=== PATIENT | female | born 1960 | race Caucasian/White ===

== ENCOUNTER 2023-09-02 15:16 | Emergency (ER) | payer MEDICARE, SELFPAY ==
[2023-09-02 15:27] VITALS: BP 125/81; PULSE 95; TEMP 36.8; O2SAT 98; BMI 25.0
--- NOTE | 2023-09-02 15:33 | CT_ITS ---
[address] [address] Patient Name: KILEY ALANIZ MRN: [id number] date: 1960 Sex: F Assigned Patient Location: ER Current Patient Location: ED.MAIN Accession/Order Number: [id number] Exam Date: 09/02/2023 16:18 Report Date: 09/02/2023 17:51 At the request of: MAHESH GARBER Procedure: CT abdomen pelvis w con EXAM: CT abdomen pelvis w con HISTORY: LLQ pain COMPARISON: None. TECHNIQUE: Axial CT imaging was performed through the abdomen and pelvis with intravenous contrast. Multiplanar reformats were performed. Dose reduction techniques were achieved by using automated exposure control and/or adjustment of mA and/or kV according to patient size and/or use of iterative reconstruction technique. FINDINGS: Lung bases: Lung bases are clear. No pleural effusion. GI upper: Unremarkable. Liver: Normal size and contour. Right hepatic cysts measuring up to 2 cm. Gallbladder: No significant abnormality. No cholelithiasis. Biliary system: No intra or extrahepatic biliary ductal dilatation. Spleen: Normal size. Pancreas: Unremarkable. Adrenal glands: Normal adrenal glands. Kidneys/ureters: Normal contours. No hydronephrosis. Multiple punctate left renal stones. Vessels: No aneurysm. Lymph Nodes: No lymphadenopathy. Small bowel: No wall thickening or dilatation. Colon: No dilatation. Sigmoid diverticula. There is short segment mid sigmoid wall thickening with surrounding fat stranding, representing acute sigmoid diverticulitis. Appendix: Appendix is identified with normal appearance. Peritoneal cavity: No free fluid or pneumoperitoneum. Lower : Unremarkable. Bones: No acute bony abnormality. Soft tissues: No acute finding. Additional findings: None. CT/CT abdomen pelvis w con IMPRESSION: CT evidence of acute sigmoid diverticulitis. Multiple punctate left renal stones. Electronically authenticated by: DAVION ACEVEDO Date: 09/02/2023 17:51
[2023-09-02] MEDS: KETOROLAC TROMETHAMINE 30 MG/ML VIAL IVP (15:46)
[2023-09-02] MEDS: ONDANSETRON PF 4 MG/2 ML VIAL IV (15:46)
[2023-09-02] MEDS: FENTANYL CITRATE/PF 100 MCG/2 ML VIAL 50 MCG IV (15:47)
[2023-09-02 15:59] LABS: Basophils Percent Auto 0.2 % (0.2-2.0); Eosinophils Absolute Auto 0.1 10^3/uL (0.0-0.7); Eosinophils Percent Auto 1.3 % (0.9-7.0); Hematocrit 42.1 % (36.0-48.0); Hemoglobin 13.8 g/dL (12.0-16.0); Immature Granulocytes Abs Auto 0.02 10^3/uL (0.00-0.03); Immature Granulocytes Pct Auto 0.2 % (0.0-0.5); Lymphocytes Absolute Auto 0.9 10^3/uL (1.2-3.8); Lymphocytes Percent Auto 10.4 % (20.5-60.0); Mean Corpuscular HGB Conc 32.8 g/dL (29.9-35.2); Mean Corpuscular Hemoglobin 31.9 pg (26.7-34.0); Mean Corpuscular Volume 97.5 fL (81.0-99.0); Mean Platelet Volume 9.2 fL (9.5-13.5); Monocytes Absolute Auto 1.1 10^3/uL (0.3-0.8); Monocytes Percent Auto 11.6 % (1.7-12.0); Neutrophils Absolute Auto 6.9 10^3/uL (1.4-6.5); Neutrophils Percent Auto 76.3 % (43.0-75.0); Platelet Count 365 10^3/uL (150-450); Red Blood Count 4.32 10^6/uL (4.20-5.40); Red Cell Distribution Width 12.6 % (11.0-15.0); White Blood Count 9.1 10^3/uL (4.0-11.0)
[2023-09-02 16:00] LABS: Bilirubin Urine NEGATIVE (NEGATIVE); Blood Urine NEGATIVE (NEGATIVE); Clarity Urine CLEAR (CLEAR); Color Urine YELLOW (YELLOW); Glucose Urine UA NEGATIVE (NEGATIVE); Ketones Urine NEGATIVE (NEGATIVE); Leukocyte Esterase Urine NEGATIVE (NEGATIVE); Nitrite Urine NEGATIVE (NEGATIVE); Protein Urine NEGATIVE (NEG/TRACE); Specific Gravity Urine >=1.030 (1.005-1.025)
[2023-09-02 16:09] LABS: Anion Gap 12.4; BUN Creatinine Ratio 20.7; Calcium 9.5 mg/dL (8.5-10.1); Carbon Dioxide 27.4 mmol/L (21.0-32.0); Chloride 105 mmol/L (98-107); Estimated GFR (African America >60 (>=60); Estimated GFR (Non-African Ame >60 (>=60); Glucose 119 mg/dL (74-106); Potassium 3.8 mmol/L (3.5-5.1); Sodium 141 mmol/L (136-145)
[2023-09-02 16:17] LABS: Urine Microscopic Indicated NO
--- NOTE | 2023-09-02 16:57 | ED.ABDPAIN1 ---
HPI - Abdominal Pain General Chief Complaint: Abdominal Pain Stated Complaint: LT SIDE LOWER STOMACH PAIN Time Seen by Provider: 09/02/23 15:30 Source: patient Mode of arrival: walk-in Limitations: no limitations History of Present Illness HPI narrative: 63-year-old female to the emergency department chief complaint of left lower quadrant pain for the last 2 to 3 days. She reports it is sharp in nature. It does not radiate. No nausea or vomiting. No change in bowel habits. She does have a history of diverticulitis. No urinary symptoms. No fever, sweats, chills. She is otherwise in her baseline health. Related Data Previous Rx's ?Medication ?Instructions ?Recorded ciprofloxacin HCl 500 mg tablet 500 mg PO BID 7 days #14 tabs 09/02/23 metronidazole 500 mg tablet 500 mg PO Q8H 7 days #21 tabs 09/02/23 ondansetron 4 mg disintegrating 4 mg PO Q8H PRN nausea and 09/02/23 tablet vomiting 4 days #16 tabs oxycodone-acetaminophen 5 mg-325 1 tab PO Q6H PRN pain 3 days #12 09/02/23 mg tablet (Percocet) tabs Allergies Allergy/AdvReac Type Severity Reaction Status Date / Time morphine Allergy Severe rash Verified 09/02/23 15:30 Review of Systems ROS Status of ROS 10 or more systems reviewed and unremarkable except as noted in history and below Exam Narrative Exam Narrative: VITALS: I have reviewed the triage vital signs. GENERAL: Well developed, well appearing adult in no acute distress. NEURO: Alert and oriented. Moves all extremities. Face is symmetric and expressive. EYES: PERRL. No scleral icterus or conjunctival injection. No discharge. HENT: Normocephalic, atraumatic. Hearing is grossly intact. Nares grossly patent and without discharge. Mucous membranes moist. NECK: No JVD. Patient moves neck without restriction. CARDIO: Rhythm regular. Normal rate. No murmur, rub, or gallop. Pulses equal bilaterally in the upper and lower extremity. No lower extremity edema. PULM: Lungs clear to auscultation in all ellis. No wheezes, rales, or rhonchi. No conversational dyspnea. No splinting, stridor, or accessory muscle use. GI/: Abdomen is soft. Mild left lower quadrant tenderness. Normoactive bowel sounds. EXTREMITIES: Symmetric muscle bulk. No joint swelling. No clubbing, cyanosis, or deformity. SKIN: Warm and dry. Normal turgor. No rash or lesions appreciated. PSYCH: Mood, affect, and interaction is appropriate to the setting. Constitutional Vital Signs, click to edit/add: Last Vital Signs Temp 98.2 F 09/02/23 15:27 Pulse 85 09/02/23 17:59 Resp 18 09/02/23 17:59 BP 115/72 09/02/23 17:59 Pulse Ox 98 09/02/23 17:59 O2 Del Method Room Air 09/02/23 17:59 Course Vital Signs Vital signs: Vital Signs Temperature 98.2 F 09/02/23 15:27 Pulse Rate 95 H 09/02/23 15:27 Respiratory Rate 18 09/02/23 15:27 Blood Pressure 125/81 09/02/23 15:27 Pulse Oximetry 98 09/02/23 15:27 Oxygen Delivery Method Room Air 09/02/23 15:27 Temperature 98.2 F 09/02/23 15:27 Pulse Rate 85 09/02/23 17:59 Respiratory Rate 18 09/02/23 17:59 Blood Pressure 115/72 09/02/23 17:59 Pulse Oximetry 98 09/02/23 17:59 Oxygen Delivery Method Room Air 09/02/23 17:59 MDM - Abdominal Pain MDM Narrative Medical decision making narrative: 63-year-old female to the emergency department chief complaint of left lower quadrant abdominal pain. Vital stable, the patient is afebrile. Basic labs, urinalysis, CT scan ordered. Pain medications are ordered. Patient agrees with this plan. Lab work reviewed and noted. No significant abnormalities. CT scan showed uncomplicated sigmoid diverticulitis. Ciprofloxacin and Flagyl. Zofran and Percocet for her symptom control at home. She follows with gastroenterology, recommended to repeat colonoscopy for disease burden evaluation and possible surgical referral. Patient agrees with these plans. Return precautions were discussed. All questions were answered. The patient was discharged home. Medical Records Attestation: I reviewed the patient's medical records. Lab Data Attestation: I reviewed the patient's lab results. Labs: Lab Results 09/02/23 09/02/23 Range/Units 15:30 15:40 WBC 9.1 (4.0-11.0) 10^3/uL RBC 4.32 (4.20-5.40) 10^6/uL Hgb 13.8 (12.0-16.0) g/dL Hct 42.1 (36.0-48.0) % MCV 97.5 (81.0-99.0) fL MCH 31.9 (26.7-34.0) pg MCHC 32.8 (29.9-35.2) g/dL RDW 12.6 (11.0-15.0) % Plt Count 365 (150-450) 10^3/uL MPV 9.2 L (9.5-13.5) fL Neut % (Auto) 76.3 H (43.0-75.0) % Lymph % (Auto) 10.4 L (20.5-60.0) % [place] % (Auto) 11.6 (1.7-12.0) % Eos % (Auto) 1.3 (0.9-7.0) % Baso % (Auto) 0.2 (0.2-2.0) % Neut # (Auto) 6.9 H (1.4-6.5) 10^3/uL Lymph # (Auto) 0.9 L (1.2-3.8) 10^3/uL [place] # (Auto) 1.1 H (0.3-0.8) 10^3/uL Eos # (Auto) 0.1 (0.0-0.7) 10^3/uL Baso # (Auto) 0.0 (0.0-0.1) 10^3/uL Abs Immat Gran (auto) 0.02 (0.00-0.03) 10^3/uL Imm/Tot Granulo (auto) 0.2 (0.0-0.5) % Sodium 141 (136-145) mmol/L Potassium 3.8 (3.5-5.1) mmol/L Chloride 105 (98-107) mmol/L Carbon Dioxide 27.4 (21.0-32.0) mmol/L Anion Gap 12.4 BUN 19.0 H (7.0-18.0) mg/dL Creatinine 0.92 (0.55-1.02) mg/dL Est GFR ( Amer) >60 (>=60) Est GFR (Non-Af Amer) >60 (>=60) BUN/Creatinine Ratio 20.7 Glucose 119 H (74-106) mg/dL Calcium 9.5 (8.5-10.1) mg/dL Urine Color Yellow (YELLOW) Urine Clarity Clear (CLEAR) Urine pH 6.0 (5.0-9.0) Ur Specific [place] >=1.030 A (1.005-1.025) Urine Protein Negative (NEG/TRACE) mg/dL Urine Glucose (UA) Negative (NEGATIVE) mg/dL Urine Ketones Negative (NEGATIVE) mg/dL Urine Occult Blood Negative (NEGATIVE) Urine Nitrite Negative (NEGATIVE) Urine Bilirubin Negative (NEGATIVE) Urine Urobilinogen 1.0 (0.2-1.0) EU/dL Ur Leukocyte Esterase Negative (NEGATIVE) Imaging Data CT scan - abdomen: Attestation: I have reviewed the pertinent imaging results. Radiologist's impression: ITS Impressions Abdomen/Pelvis CT 09/02/23 15:33 IMPRESSION: CT evidence of acute sigmoid diverticulitis. Multiple punctate left renal stones. Electronically authenticated by: DAVION ACEVEDO Date: 09/02/2023 17:51 Discharge Plan Discharge Stand Alone Forms: Portal Instructions Chief Complaint: Abdominal Pain Clinical Impression: Diverticulitis Patient Disposition: Home, Self-Care Time of Disposition Decision: 18:10 Condition: Good Mode of Transportation: Private Vehicle Prescriptions / Home Meds: New metronidazole 500 mg tablet 500 mg PO Q8H 7 Days Qty: 21 0RF ciprofloxacin HCl 500 mg tablet 500 mg PO BID 7 Days Qty: 14 0RF oxycodone-acetaminophen [Percocet] 5-325 mg tablet 1 tab PO Q6H PRN (Reason: pain) 3 Days Qty: 12 0RF ondansetron 4 mg tablet,disintegrating 4 mg PO Q8H PRN (Reason: nausea and vomiting) 4 Days Qty: 16 0RF Print Language: Spanish Instructions: Diverticulitis (ED) Additional Instructions: Call the office of your primary care doctor to arrange for follow-up within the above-stated timeframe. Follow-up with your primary care doctor about this ED visit. You should review your labs, imaging, and diagnoses from this ED visit with your primary care physician. There may be non-emergent findings that need further evaluation. If you were prescribed medications you should discuss possible side-effects and drug interactions with your pharmacist. Call 911 or go to the nearest Emergency Department if you develop any new or worsening symptoms. Seek immediate medical attention if you develop: worsening abdominal pain, new or worsening nausea, new or worsening vomiting, new or worsening diarrhea, chest pain, shortness of breath, pain with urination, problems urinating, fever, chills, weakness, or any new or worsening symptoms. You will need to follow-up with your GI doctor for repeat colonoscopy. Referrals: Physician,Non-Staff, MD [Primary Care Provider] - 1 week (Follow-up with your doctor in 1 week. Return the ED if your symptoms are worsening)
[2023-09-02 17:59] VITALS: BP 115/72; PULSE 85; O2SAT 98
[2023-09-02] MEDS: HYDROMORPHONE HCL 0.5 MG/0.5 ML SYRINGE IV (18:00)
== END 2023-09-02 18:27 | disposition home or self-care (01) ==
PROVIDERS: Emergency Provider Student in an Organized Health Care Education/Training Program
DX: K57.32 Diverticulitis of large intestine without perforation or abscess without bleeding (principal)
CPT/HCPCS: 36415; 74177; 80048; 81003; 85025; 96374; 96375; 99285; J1170; J1885; J2405; J3010; Q9967

== ENCOUNTER 2023-09-12 14:45 | Inpatient (IN) | payer MEDICARE, SELFPAY ==
[2023-09-12 14:52] VITALS: BP 145/90; PULSE 90; TEMP 36.7; O2SAT 97; BMI 24.9
--- OUTSIDE RECORDS SUMMARY | 2023-09-12 15:04 | XMS_ITS | CCD ---
Author Organization [facility] Care Team Providers Care Claims Vice President Name Role Phone ELINA DEL ANGEL Unavailable Unavailable ELINA DEL ANGEL Unavailable Unavailable KABOUR, AMEER Unavailable Unavailable NUCKLOS, RONALD Primary Care Unavailable RADHA TRUJILLO Attending Unavailable RADHA TRUJILLO Admitting Unavailable SELF, REFERRED Referring Unavailable NUCKLOS, RONALD Primary Care Unavailable NUCKLOS, RONALD Referring Unavailable ELGAFY, CALOS K Attending Unavailable ELGAFY, CALOS K Admitting Unavailable NUCKLOS, RONALD Referring Unavailable EBRAHEIM, JOANN Admitting Unavailable NUCKLOS, RONALD Primary Care Unavailable EBRAHEIM, JOANN Attending Unavailable NUCKLOS, RONALD Referring Unavailable ND Procedure Practitioner Unavailab le EBRAHEIM, JOANN Admitting Unavailable EBRAHEIM, JOANN Surgeon Unavailable NUCKLOS, RONALD Primary Care Unavailable EBRAHEIM, JOANN Attending Unavailable Judith Pinzon Unavailable PAY ., DR HALL Admitting Unavailable PAY ., DR HALL Attending Unavailable CHEKO, DR CHRISSY Quintana Consulting Unavailable REQUEST, DR MOY LISTED Primary Care Unavaila ble PAY ., DR HALL Consulting Unavailable DELLA ., LISSA Consulting Unavailable RASTEGAR, DAVION Consulting Unavailable ULISES ZULUAGA, MARGARETH~[id number] ULISES Attending Unavailable NUCKLOS, RONALD N Attending Unavailable NUCKLOS, RONALD N Attending Unavailable NUCKLOS, RONALD N Referring Unavailable NUCKLOS, RONALD N Referring Unavailable NUCKLOS, RONALD N Referring Unavailable ELGAFY, CALOS Referring Unavailable ELGAFY, CALOS Attending Unavailable HILDA, ALEXSANDRA Attending Unavailable Allergies Allergy Classification Reported Allergen(s) Allergy Type Date of Onset Reaction(s) Facility (1 source) Acetaminophen / HYDROcodone Drug Allergy 3 [facility] Repository (2 sources) Latex; Translations: [LATEX] Propensity to adverse reactions (disorder) 7 [facility] Repository (3 sources) Morphine; Translations: [MORPHINE] Drug Allergy 9 [facility] Repository (1 source) Acetaminophen / HYDROcodone; Translations: [HYDROCODONE-ACET AMINOPHEN] Drug Allergy 4 [facility] Repository Problems Active Problems Problem Classification Problem Date Documented Da te Episodic/Chronic Anxiety disorders (2 sources) Anxiety disorder, unspecified; Translations: [Anxiety disorder, unspecified] Onset: 04-14-2023 Chronic Aortic; peripheral; and visceral artery aneurysms (2 sources) Aneurysm of other specified arteries; Translations: [Aneurysm of other specified arteries] Onset: 03-09-2022 Chronic Conditions associated with dizziness or vertigo (4 sources) Dizziness and giddiness; Translations: [DIZZINESS AND GIDDINESS] Onset: 07-29-2022 Episodic Disorders of lipid metabolism (2 sources) Hyperlipidemia, unspecified; Translations: [Hyperlipidemia, unspecified] Onset: 02-07-2022 Chronic E Codes: Fall (1 source) Fall on same level from slipping, tripping and stumbling with subsequent striking against unspecified object, initial encounter; Translations: [FALL SAME LVL SLIP STRK UNS OBJ INT] Onset: 08-02-2022 Episodic Other injuries and conditions due to external causes (1 source) Unspecified injury of head, initial encounter; Translations: [UNSPECIFIED INJURY HEAD INITIAL ENC] Onset: 08-02-2022 Episodic Other nervous system disorders (3 sources) Other chronic pain; Translations: [OTHER CHRONIC PAIN] Onset: 08-02-2022 Chronic Poisoning by other medications and drugs (1 source) Poisoning by unspecified drugs, medicaments and biological substances, accidental (unintentional), initial encounter; Translations: [Poisoning by unspecified drugs, medicaments and biological substances, accidental (unintentional), initial encounter] Onset: 08-05-2017 Sprains and strains (1 source) Unspecified sprain of left thumb, initial encounter; Translations: [UNSPECIFIED SPRAIN LT THUMB INITIAL] Onset: 08-02-2022 Episodic Unclassified (1 source) Cough, unspecified; Translations: [Cough, unspecified] Onset: 04-28-2023 Past or Other Problems Problem Classification Problem Date Documented Da te Episodic/Chronic Diabetes mellitus without complication (2 sources) Prediabetes; Translations: [Prediabetes] Onset: 04-28-2023 Episodic Malaise and fatigue (2 sources) Other fatigue; Translations: [Other fatigue] Onset: 04-14-2023 Episodic Nonmalignant breast conditions (2 sources) Mastodynia; Translations: [Mastodynia] Onset: 04-28-2023 Episodic Nonspecific chest pain (3 sources) Chest pain, unspecified; Translations: [Chest pain, unspecified] Onset: 08-06-2017 Episodic Other connective tissue disease (2 sources) Pain in left finger(s); Translations: [Pain in left finger(s)] Onset: 09-02-2022 Episodic Other gastrointestinal disorders (2 sources) Other intra-abdominal and pelvic swelling, mass and lump; Translations: [Other intra-abdominal and pelvic swelling, mass and lump] Onset: 04-14-2023 Episodic Other lower respiratory disease (2 sources) Dyspnea, unspecified; Translations: [Dyspnea, unspecified] Onset: 04-14-2023 Episodic Other lower respiratory disease (2 sources) Shortness of breath; Translations: [Shortness of breath] Onset: 04-14-2023 Episodic Other nervous system disorders (2 sources) Tremor, unspecified; Translations: [Tremor, unspecified] Onset: 04-14-2023 Episodic Other non-traumatic joint disorders (2 sources) Pain in left shoulder; Translations: [Pain in left shoulder] Onset: 04-14-2023 Episodic Other screening for suspected conditions (not mental disorders or infectious disease) (2 sources) Other abnormal and inconclusive findings on diagnostic imaging of breast; Translations: [Other abnormal and inconclusive findings on diagnostic imaging of breast] Onset: 04-14-2023 Episodic Spondylosis; intervertebral disc disorders; other back problems (5 sources) Cervicalgia; Translations: [Radiculopathy, cervical region] Onset: 02-07-2022 Episodic Unclassified (1 source) Cough, unspecified; Translations: [Cough, unspecified] Onset: 04-28-2023 Results Test Name Value Interpretation Reference Range Facility 36 08-23-2023 36 Patient called jean-claude leigh she needs a refill for ropinirole. She's been out for two day. This needs to go to the [facility]. Normal [facility] CT ABDOMEN PELVIS W IV CONTR Justus 05-31-2023 CT ABDOMEN PELVIS W IV CONTRAST CT ABDOMEN AND PELVIS HISTORY: Breast pain, abdominal pain. COMPARISON STUDY: CT abdomen pelvis 03/02/2022. TECHNIQUE: CT scan of the abdomen and pelvis performed with IV no oral contrast. 100 mL of Omnipaque 350 was injected intravenously without complication. Coronal and sagittal reformats generated and reviewed. FINDINGS: LOWER THORAX: Unchanged partially calcified 3 mm posterior right lower lobe lung nodule. HEPATOBILIARY: Medial right hepatic lobe cyst similar from before with smaller vague lesions to small to characterize. No biliary ductal dilatation. Gallbladder is normal. SPLEEN: No splenomegaly. PANCREAS: No focal masses or ductal dilatation. ADRENALS: No adrenal nodules. KIDNEYS/URETERS: 2 mm left lower pole renal stones, no collecting system dilatation. No suspicious renal mass. GI TRACT: Subtle wall thickening cecum, hepatic flexure, proximal transverse colon, consider possibility of colitis. Diffuse stool. Appendix is normal. Diverticulosis, no diverticulitis. PELVIC ORGANS/BLADDER: Unremarkable. PERITONEUM/RETROPERITON EUM: No free air or fluid. LYMPH NODES: No enlarged lymph nodes. VESSELS: Atherosclerotic calcifications without abdominal aortic aneurysm. BONES AND SOFT TISSUES: No suspicious osseous lesion. IMPRESSION: 1. Subtle wall thickening cecum, hepatic flexure, proximal transverse colon, consider possibility of colitis, nonspecific in etiology. 2. No evidence of diverticulitis. Diverticulosis noted. 3. There is provided history of breast pain in the ordering requisition. Please see recently performed diagnostic mammogram from 04/22/2023, if this symptom is new, consider repeat imaging. 4. Small nonobstructive left renal stones. All CT scans at this facility use dose modulation, iterative reconstruction, and/or weight based dosing when appropriate to reduce radiation dose to as low as reasonably achievable. Electronically signed: Ross Deras. Kathy Montoyadtd Invalid Interpretation Code [facility] BI MAMMOGRAM DIAGNOSTIC JORGE SYNTHESIS LEFTon 02-23-2024 BI MAMMOGRAM DIAGNOSTIC TOMOSYNTHESIS LEFT This is a summary report. The complete report is available in the patient's medical record. If you cannot access the medical record, please contact the sending organization for a detailed fax or copy. EXAM: BI MAMMOGRAM DIAGNOSTIC TOMOSYNTHESIS LEFT 05/12/2023 11:17 AM HISTORY: Generalized left outer breast pain. No focal symptoms. COMPARISON: 02/15/2023 TECHNIQUE: CC and MLO views of the left breast were performed. Breast tomosynthesis was utilized.. Computer aided detection was utilized using [employer]. FINDINGS: The breasts are heterogeneously dense, which may obscure small masses. There is no mass or asymmetry within the left breast. No suspicious calcification is present. IMPRESSION: No mammographic findings suspicious for malignancy. ASSESSMENT: BI-RADS 1: Negative RECOMMENDATION: Routine Screening Mammogram in 1 Year BREAST LATERALITY: Left The patient was notified of the results of this study. Clinical follow-up of the patient's symptoms is recommended. If focal symptoms developed in targeted ultrasound may be warranted. The patient will be due for bilateral mammography in January 2024. Electronically signed: Ben Sherwood. Normal [facility] Documentationon 04-28-2023 Documentation [id number] TomangelachrisGerry 1960 F Date Provider Department Center 04/28/2023 1052-YESSENIA ROQUE [facility] Comprehensiv Family History Problem Relation Age of Onset Diabetes Mother Lung cancer Father Family Status - Relation Status Age at Mother Father Reason for Visit and Comments: Hyperlipidemia [182] Normal [facility] Documentation [id number] Gerry Alaniz 1960 F Date Provider Department Center 04/28/2023 [id number], KARA [facility] INT MED Comprehensiv Family History Problem Relation Age of Onset Diabetes Mother Lung cancer Father Family Status - Relation Status Age at Mother Father Reason for Visit and Comments: Specialty Note- Evolocumab (Repatha) [Other] Normal [facility] Office Visiton 04-28-2023 Follow-up visit [id number] Gerry Alaniz 1960 F Date Provider Department Center 04/28/2023 381-RONALD SAMANO [facility] INT MED Comprehensiv Family History Problem Relation Age of Onset Diabetes Mother Lung cancer Father Family Status - Relation Status Age at Mother Father Level of Service:75076 ND OFFICE/OUTPATIENT ESTABLISHED MOD MDM 30 MIN Reason for Visit and Comments: Follow-up [[id number]] - Patient here for Lab Review, Cough x a couple days, Reviewed 04/28/2023 -EK Normal [facility] 36on 04-24-2023 36 [place] [facility] receive d imaging from outside facility. Spoke to Marie in radiology records, images to be uploaded in [employer]. Isha [phone] Patient was notified by phone staff. Spoke to Isha, patient is aware that results were received and uploaded. Normal [facility] CBC WITH AUTO DIFFERENTIALon 04-14-2023 Basophils (Bld) [#/Vol] 0.02 10*3/uL Normal 0.00-0.20 [facility] Comment on above: Performed By: #### L [id number] #### [facility] ([facility]) [address] [place] [address] Basophils/100 WBC (Bld) 0.3 % Normal 0.0-1.0 [facility] Comment on above: Performed By: #### L [id number] #### [facility] ([facility]) [address] [place] [address] Eosinophils (Bld) [#/Vol] 0.09 10*3/uL Normal 0.00-0.50 [facility] Comment on above: Performed By: #### L [id number] #### [facility] ([facility]) [address] [place] [address] Eosinophils/100 WBC (Bld) 1.5 % Normal 0.0-6.0 [facility] Comment on above: Performed By: #### L [id number] #### [facility] ([facility]) [address] [place] [address] Erythrocyte distribution width (RBC) [Ratio] 13.7 % Normal 11.5-15.0 [facility] Comment on above: Performed By: #### L [id number] #### [facility] ([facility]) [address] [place] [address] ERYTHROCYTE MEAN CORPUSCULAR HEMOGLOBIN CONCENTRATION (G/DL) BY AUTOMATED 32.9 g/dL Normal 32.0-35.0 [facility] Comment on above: Performed By: #### L [id number] #### [facility] ([facility]) [address] [place] [address] Hematocrit (Bld) [Volume fraction] 43.2 % Normal 36.0-48.0 [facility] Comment on above: Performed By: #### L [id number] #### [facility] ([facility]) [address] [place] [address] Hemoglobin (Bld) [Mass/Vol] 14.2 g/dL Normal 12.0-15.0 [facility] Comment on above: Performed By: #### L [id number] #### [facility] ([facility]) [address] [place] [address] Immature granulocytes (Bld) [#/Vol] 0.02 10*3/uL Normal 0.00-0.20 [facility] Comment on above: Performed By: #### L [id number] #### [facility] ([facility]) [address] [place] [address] Immature granulocytes/100 WBC (Bld) 0.3 % Normal 0.0-1.0 [facility] Comment on above: Performed By: #### L [id number] #### [facility] ([facility]) [address] [place] [address] Lymphocytes (Bld) [#/Vol] 1.04 10*3/uL Low 1.20-4.00 [facility] Comment on above: Performed By: #### L [id number] #### [facility] ([facility]) [address] [place] [address] Lymphocytes/100 WBC (Bld) 17.3 % Low 20.0-45.0 [facility] Comment on above: Performed By: #### L [id number] #### [facility] ([facility]) [address] [place] [address] MCH (RBC) [Entitic mass] 31.2 pg Normal 27.0-33.0 [facility] Comment on above: Performed By: #### L [id number] #### [facility] ([facility]) [address] [place] [address] MCV (RBC) [Entitic vol] 94.9 fL Normal 82.0-98.0 [facility] Comment on above: Performed By: #### L [id number] #### [facility] ([facility]) [address] [place] [address] Monocytes (Bld) [#/Vol] 0.60 10*3/uL Normal 0.10-1.00 [facility] Comment on above: Performed By: #### L [id number] #### [facility] ([facility]) [address] [place] [address] Monocytes/100 WBC (Bld) 10.0 % Normal 5.0-12.0 [facility] Comment on above: Performed By: #### L [id number] #### [facility] ([facility]) [address] [place] [address] Neutrophils (Bld) [#/Vol] 4.23 10*3/uL Normal 1.60-7.60 [facility] Comment on above: Performed By: #### L [id number] #### [facility] ([facility]) [address] [place] [address] Neutrophils/100 WBC (Bld) 70.6 % Normal 40.0-72.0 [facility] Comment on above: Performed By: #### L [id number] #### [facility] ([facility]) [address] [place] [address] NRBC (PER 100 WBCS) BY AUTOMATED COUNT 0.0 % Normal 0 [facility] Comment on above: Performed By: #### L [id number] #### [facility] ([facility]) [address] [place] [address] PLATELETS (10*3/UL) IN BLOOD AUTOMATED COUNT 310 10*3/uL Normal 150-400 [facility] Comment on above: Performed By: #### L [id number] #### [facility] ([facility]) [address] [place] [address] RBC (Bld) [#/Vol] 4.55 10*6/uL Normal 3.80-5.00 [facility] Comment on above: Performed By: #### L [id number] #### [facility] ([facility]) [address] [place] [address] WBC (Bld) [#/Vol] 6.00 10*3/uL Normal 4.00-10.60 [facility] Comment on above: Performed By: #### L [id number] #### [facility] ([facility]) [address] [place] [address] COMPREHENSIVE METABOLIC PANE Paul 04-14-2023 Albumin [Mass/Vol] 4.8 g/dL Normal 3.5-5.7 [facility] Comment on above: Performed By: #### L [id number] #### [facility] ([facility]) [address] [place] [address] ALP [Catalytic activity/Vol] 68 U/L Normal 34-104 [facility] Comment on above: Performed By: #### L [id number] #### [facility] ([facility]) [address] [place] [address] ALT [Catalytic activity/Vol] 18 U/L Normal 7-52 [facility] Comment on above: Performed By: #### L [id number] #### [facility] ([facility]) [address] [place] [address] Anion gap [Moles/Vol] 13 mmol/L Normal 7-20 [facility] Comment on above: Performed By: #### L [id number] #### [facility] ([facility]) [address] [place] [address] AST [Catalytic activity/Vol] 17 U/L Normal 13-39 [facility] Comment on above: Performed By: #### L [id number] #### [facility] ([facility]) [address] [place] [address] Bilirubin [Mass/Vol] 1.0 mg/dL Normal 0.3-1.0 [facility] Comment on above: Performed By: #### L [id number] #### [facility] ([facility]) [address] [place] [address] Calcium [Mass/Vol] 9.8 mg/dL Normal 8.6-10.3 [facility] Comment on above: Performed By: #### L [id number] #### [facility] ([facility]) [address] [place] [address] Chloride [Moles/Vol] 103 mmol/L Normal 98-107 [facility] Comment on above: Performed By: #### L [id number] #### [facility] ([facility]) [address] [place] [address] CO2 [Moles/Vol] 28 mmol/L Normal 21-31 [facility] Comment on above: Performed By: #### L [id number] #### [facility] ([facility]) [address] [place] [address] Creatinine [Mass/Vol] 0.81 mg/dL Normal 0.60-1.20 [facility] Comment on above: Performed By: #### L [id number] #### [facility] ([facility]) [address] [place] [address] GLOMERULAR FILTRATION RATE ML/MIN/1.73 SQ M.PREDICTED 82.0 mL/min/1.73m*2 Normal >60.0 [facility] Comment on above: Result Comment: [facility]???s estimated glomerular filtration rate (eGFR) will no longer include consideration of race in its calculation. The National Kid[employer] Foundation???s eGFR Task Force developed new recommendations for the estimation of the glomerular filtration rate in the [place] They recommend immediate implementation of the new equation refit without the race variable in all laboratories because the calculation does not include race. In addition to not including race in the calculation and reporting, it included diversity in its development, and has acceptable performance characteristics and potential consequences that do not disproportionately affect any one group of individuals. Performed By: #### L [id number] #### [facility] ([facility]) [address] [place] [address] Glucose [Mass/Vol] 94 mg/dL Normal 70-100 [facility] Comment on above: Performed By: #### L [id number] #### [facility] ([facility]) [address] [place] [address] Potassium [Moles/Vol] 4.1 mmol/L Normal 3.5-5.1 [facility] Comment on above: Performed By: #### L [id number] #### [facility] ([facility]) [address] [place] [address] Protein [Mass/Vol] 7.5 g/dL Normal 6.0-8.3 [facility] Comment on above: Performed By: #### L [id number] #### [facility] ([facility]) [address] [place] [address] Sodium [Moles/Vol] 140 mmol/L Normal 136-145 [facility] Comment on above: Performed By: #### L [id number] #### [facility] ([facility]) [address] [place] [address] Urea nitrogen [Mass/Vol] 20 mg/dL Normal 7-25 [facility] Comment on above: Performed By: #### L [id number] #### [facility] ([facility]) [address] [place] [address] UREA NITROGEN/CREATININE (MASS RATIO) IN SER/PLAS 24.7 Normal [facility] Comment on above: Performed By: #### L [id number] #### [facility] ([facility]) [address] [place] [address] Follow-Upon 04-14-2023 Follow-Up [id number] Gerry Alaniz 1960 F Date Provider Department Center 04/14/2023 381-RONALD SAMANO [facility] INT MED Comprehensiv Family History Problem Relation Age of Onset Diabetes Mother Lung cancer Father Family Status - Relation Status Age at Mother Father Level of Service:83482 ND OFFICE/OUTPATIENT ESTABLISHED MOD MDM 30 MIN Reason for Visit and Comments: Follow-up [[id number]] - Patient here for mammogram review, lump in groin, kidney labs, Reviewed 04/14/2023 -EK Normal [facility] LIPID PANELon 04-14-2023 CHOL/HDL 4.1 mg/dL Normal [facility] Comment on above: Performed By: #### L [id number] #### [facility] ([facility]) [address] [place] [address] Cholesterol [Mass/Vol] 346 mg/dL High 120-200 [facility] Comment on above: Performed By: #### L [id number] #### [facility] ([facility]) [address] [place] [address] Magnesium [Mass/Vol] 144 mg/dL Normal 40-149 [facility] Comment on above: Result Comment: TRIG LYCERIDE REFERENCE RANGE: 20 YEARS AND OLDER CARDIOVASCULAR RISK LESS THAN 150 mg/dL LOW RISK 150 TO 199 mg/dL BORDERLINE RISK 200 mg/dL AND GREATER HIGH RISK Performed By: #### L [id number] #### [facility] ([facility]) [address] [place] [address] Magnesium [Mass/Vol] 233 mg/dL High 0-160 [facility] Comment on above: Performed By: #### L [id number] #### [facility] ([facility]) [address] [place] [address] Magnesium [Mass/Vol] 84 mg/dL Normal 23-92 [facility] Comment on above: Performed By: #### L [id number] #### [facility] ([facility]) [address] [place] [address] NON HDL CHOL. (LDL+VLDL) 262 Normal [facility] Comment on above: Performed By: #### L [id number] #### [facility] ([facility]) [address] [place] [address] TOTAL VLDL-C 29 mg/dL Normal 0-40 [facility] Comment on above: Performed By: #### L [id number] #### [facility] ([facility]) [address] [place] [address] T3, FREEon 04-14-2023 TRIIODOTHYRONINE (T3) FREE (PG/ML) IN SER/PLAS 3.7 pg/mL Normal 2.5-3.9 [facility] Comment on above: Performed By: #### L [id number] #### [facility] ([facility]) [address] [facility] [place] [address] T4, FREEon 04-14-2023 THYROXINE (T4) FREE (NG/DL) IN SER/PLAS 0.83 ng/dL Normal 0.71-1.85 [facility] Comment on above: Performed By: #### L [id number] #### [facility] ([facility]) [address] [place] [address] TSHon 04-14-2023 THYROTROPIN (MIU/L) IN SER/PLAS BY DETECTION LIMIT <= 0.05 MIU/L 1.62 mIU/L Normal 0.34-5.60 [facility] Comment on above: Performed By: #### L [id number] ####[facility] ([facility])[address] [place] [address] 36on 04-07-2023 36 Received mammogram results from [place]. Scanned into chart for review. [facility] 36on 04-06-2023 36 Patient called offic e requesting to have medical records for mammogram transferred from [place] to our office. Patient gave Phone number of [phone] extension [phone], however when I called number it was not a working number. Please advise. [facility] 36on 09-09-2022 36 Left message remindi ng of appt. [facility] Orders Onlyon 09-09-2022 Orders Only [id number] Gerry Alaniz 1960 F Date Provider Department Center 09/09/2022 V[facility] INT MED Comprehensiv Family History Problem Relation Age of Onset Diabetes Mother Lung cancer Father Family Status - Relation Status Age at Mother Father Normal [facility] Follow-Upon 09-03-2022 Follow-Up [id number] Gerry Alaniz 1960 Date Provider Department Center 09/03/2022 Fabi-CALOS BEYER MP ORTHO MPORTHO Family History Problem Relation Age of Onset Diabetes Mother Lung cancer Father Family Status - Relation Status Age at Mother Father Level of Service:73763 ND OFFICE/OUTPATIENT ESTABLISHED LOW MDM 20-29 MIN (GC) Reason for Visit and Comments: Follow-up [[id number]] - MRI results Normal [facility] Follow-Upon 09-02-2022 Follow-Up [id number] Gerry Alaniz 1960 Date Provider Department Center 09/02/2022 Jill-ADAM JOHNSTON ORTHO MPORTHO Family History Problem Relation Age of Onset Diabetes Mother Lung cancer Father Family Status - Relation Status Age at Mother Father Level of Service:55343 ND OFFICE/OUTPATIENT ESTABLISHED LOW MDM 20-29 MIN Reason for Visit and Comments: Pain [136] Pain [136] Normal [facility] CBC AUTO DIFFon 07-29-2022 BASO # 0.0 103/ul Normal 0.0-0.1 [facility] Comment on above: Performed By: #### C BC #### [facility] [address] [address] [address] Kushal Hernandez Basophils/100 WBC (Bld) 0.4 % Normal 0.2-2.0 [facility] Comment on above: Performed By: #### C BC #### [facility] [address] [address] [address] Kushal Hernandez EO # 0.2 103/ul Normal 0.0-0.7 [facility] Comment on above: Performed By: #### C BC #### [facility] [address] [address] [address] Kushal Hernandez Eosinophils/100 WBC (Bld) 4.2 % Normal 0.9-7.0 [facility] Comment on above: Performed By: #### C BC #### [facility] [address] [place] [address] Dr. uKshal Hernandez Erythrocyte distribution width (RBC) [Ratio] 11.9 % Normal 11.0-15.0 [facility] Comment on above: Performed By: #### C BC #### [facility] [address] [place] [address] Dr. Kushal Hernandez Hematocrit (Bld) [Volume fraction] 39.1 % Normal 36.0-48.0 [facility] Comment on above: Performed By: #### C BC #### [facility] [address] [place] [address] Dr. Kushal Hernandez Hemoglobin (Bld) [Mass/Vol] 13.0 g/dL Normal 12.0-16.0 [facility] Comment on above: Performed By: #### C BC #### [facility] [address] [place] [address] Dr. Kushal Hernandez IG # 0.02 10e3/ul Normal 0.00-0.03 [facility] Comment on above: Performed By: #### C BC #### [facility] [address] [place] [address] Dr. Kushal Hernandez IG % 0.4 % Normal 0.0-0.5 [facility] Comment on above: Performed By: #### C BC #### [facility] [address] [place] [address] Dr. Kushal Hernandez LYMPH # 1.1 103/ul Critically low 1.2-3.8 [facility] Comment on above: Performed By: #### C BC #### [facility] [address] [place] [address] Dr. Kushal Hernandez Lymphocytes/100 WBC (Bld) 20.2 % Critically low 20.5-60.0 [facility] Comment on above: Performed By: #### C BC #### [facility] [address] [place] [address] Dr. Kushal Hernandez MANUAL DIFF REQ NO Normal [facility] Comment on above: Performed By: #### C BC #### [facility] [address] [place] [address] Dr. Kushal Hernandez MCH (RBC) [Entitic mass] 31.9 pg Normal 26.7-34.0 [facility] Comment on above: Performed By: #### C BC #### [facility] [address] [place] [address] Dr. Kushal Hernandez MCHC (RBC) [Mass/Vol] 33.2 g/dL Normal 29.9-35.2 [facility] Comment on above: Performed By: #### C BC #### [facility] [address] [place] [address] Dr. Kushal Hernandez MCV (RBC) [Entitic vol] 96.1 fL Normal 81.0-99.0 [facility] Comment on above: Performed By: #### C BC #### [facility] [address] [place] [address] Dr. Kushal Hernandez MONO # 0.4 103/ul Normal 0.3-0.8 [facility] Comment on above: Performed By: #### C BC #### [facility] [address] [place] [address] Dr. Kushal Hernandez Monocytes/100 WBC (Bld) 6.9 % Normal 1.7-12.0 [facility] Comment on above: Performed By: #### C BC #### [facility] [address] [place] [address] Dr. Kushal Hernandez NEUT # 3.5 103/ul Normal 1.4-6.5 [facility] Comment on above: Performed By: #### C BC #### [facility] [address] [place] [address] Dr. Kushal Hernandez Neutrophils/100 WBC (Bld) 67.9 % Normal 43.0-75.0 [facility] Comment on above: Performed By: #### C BC #### [facility] [address] [place] [address] Dr. Kushal Hernandez Platelet mean volume (Bld) [Entitic vol] 8.6 fL Critically low 9.5-13.5 [facility] Comment on above: Performed By: #### C BC #### [facility] [address] [place], [place] [address] Dr. Kushal Hernandez PLT 273 103/ul Normal 150-450 [facility] Comment on above: Performed By: #### C BC #### [facility] [address] [place], [place] [address] Dr. Kushal Hernandez RBC 4.07 106/ul Critically low 4.20-5.40 [facility] Comment on above: Performed By: #### C BC #### [facility] [address] [place], [place] [address] Dr. Kushal Hernandez WBC 5.2 103/ul Normal 4.0-11.0 [facility] Comment on above: Performed By: #### C BC #### [facility] [address] [place], [place] [address] HEAD WO CONon 07-29-2022 CT HEAD WO CON EXAMINATION: CT [facility]SPI NE WO CON, CT HEAD WO CON HISTORY: HEADACHE COMPARISON: 08/28/2019 TECHNIQUE: CT scan of the cervical spine and head were performed without IV contrast. CT dose reduction technique was used, including Automated Exposure Control. FINDINGS: Head CT: There are no extra-axial fluid collections. There is no mass effect or midline shift. The cerebral ventricles and sulci are normal. The brain demonstrates normal attenuation. Basilar cisterns are patent. There is mild bilateral subcortical and deep periventricular white matter chronic microvascular ischemia. Bilateral orbits, paranasal sinuses and mastoid air cells are patent. No skull base fracture. Cervical spine: Status post anterior fusion of C5-C7 without hardware fracture or loosening. There is straightening of the normal cervical lordosis. No spondylolisthesis. There are degenerative changes of the cervical spine. There is uncovertebral and facet hypertrophy resulting in moderate to severe left neural foraminal narrowing at C3-C4 level No significant spinal canal and remaining neural foraminal narrowing. No prevertebral soft tissue swelling. No evidence for fracture at the skull base or throughout the cervical spine. There is biapical centrilobular emphysema. IMPRESSION: No acute intracranial hemorrhage or acute infarction. No acute fracture or subluxation of the cervical spine. Moderate to severe C3-C4 left neural foraminal narrowing. Electronically authenticated by: DAVION ACEVEDO Date: 2022-07-29 13:30 Normal [facility] PROF 14(COMP METB)on 023 Albumin [Mass/Vol] 3.9 g/dL Normal 3.4-5.0 [facility] Comment on above: Performed By: #### C MP #### [facility] [address] [place] [address] Dr. Kushal Hernandez Albumin/Globulin [Mass ratio] 1.2 {ratio} Normal [facility] Comment on above: Performed By: #### C MP #### [facility] [address] [place] [address] Dr. Kushal Hernandez ALP [Catalytic activity/Vol] 59 U/L Normal 46-116 [facility] Comment on above: Performed By: #### C MP #### [facility] [address] [place] [address] Dr. Kushal Hernandez ALT [Catalytic activity/Vol] 17 U/L Normal 14-59 [facility] Comment on above: Performed By: #### C MP #### [facility] [address] [place] [address] Dr. Kushal Hernandez Anion gap [Moles/Vol] 12.1 mmol/L Normal [facility] Comment on above: Performed By: #### C MP #### [facility] [address] [place] [address] Dr. Kushal Hernandez AST [Catalytic activity/Vol] 14 U/L Critically low 15-37 [facility] Comment on above: Performed By: #### C MP #### [facility] [address] [place] [address] Dr. Kushal Hernandez Bilirubin [Mass/Vol] 0.6 mg/dL Normal 0.2-1.0 [facility] Comment on above: Performed By: #### C MP #### [facility] [address] [place] [address] Dr. Kushal Hernandez Calcium [Mass/Vol] 9.1 mg/dL Normal 8.5-10.1 [facility] Comment on above: Performed By: #### C MP #### [facility] [address] [address] [address] Kushal Hernandez Chloride [Moles/Vol] 104 mmol/L Normal 98-107 [facility] Comment on above: Performed By: #### C MP #### [facility] [address] [address] [address] Kushal Hernandez CO2 [Moles/Vol] 28.7 mmol/L Normal 21.0-32.0 [facility] Comment on above: Performed By: #### C MP #### [facility] [address] [place] [address] Dr. Kushal Hernandez Creatinine [Mass/Vol] 0.93 mg/dL Normal 0.55-1.02 [facility] Comment on above: Performed By: #### C MP #### [facility] [address] [place] [address] Dr. Kushal Hernandez EGFR-AF PALAUAN >60 Normal >=60 [facility] Comment on above: Performed By: #### C MP #### [facility] [address] [address] [address] Kushal Hernandez EGFR-NON AF PALAUAN >60 Normal >=60 [facility] Comment on above: Performed By: #### C MP #### [facility] [address] [place] [address] Dr. Kushal Hernandez Globulin (S) [Mass/Vol] 3.2 g/dL Normal [facility] Comment on above: Performed By: #### C MP #### [facility] [address] [place] [address] Dr. Kushal Hernandez Glucose [Mass/Vol] 170 mg/dL Critically high 74-[address] [facility] Comment on above: Performed By: #### C MP #### [facility] [address] [address] [address] Kushal Hernandez Potassium [Moles/Vol] 3.8 mmol/L Normal 3.5-5.1 [facility] Comment on above: Performed By: #### C MP #### [facility] [address] [place] [address] Dr. Kushal Hernandez Protein [Mass/Vol] 7.1 g/dL Normal 6.4-8.2 [facility] Comment on above: Performed By: #### C MP #### [facility] [address] [address] [address] Kushal Hernandez Sodium [Moles/Vol] 141 mmol/L Normal 136-145 [facility] Comment on above: Performed By: #### C MP #### [facility] [address] [address] [address] Kushal Hernandez Urea nitrogen [Mass/Vol] 17.0 mg/dL Normal 7.0-18.0 [facility] Comment on above: Performed By: #### C MP #### [facility] [address] [address] [address] Kushal Hernandez Urea nitrogen/Creatinine [Mass ratio] 18.3 mg/mg Normal [facility] Comment on above: Performed By: #### C MP #### [facility] [address] [address] [address] Kushal Hernandez TROPONIN, HIGH SENSITIVITYon 07-29-2022 HSTROP <4.0 Normal 4.0-51.3 [facility] Comment on above: Result Comment: CUT- OFF POINTS HAVE BEEN ESTABLISHED BASED ON THE FOURTH UNIVERSAL DEFINITIONS OF MYOCARDIAL INFARCTION. THE UPPER REFERENCE LIMIT (URL) OF TROPONIN, DEFINED THE 99TH PERCENTILE OF cTnI DISTRIBUTION IN A REFERENCE POPULATION, HAS BEEN CONFIRMED THE DECISION THRESHOLD FOR MO DIAGNOSIS. Performed By: #### H STROPN #### [facility] [address] [place] [address] Dr. Kushal Hernandez XR HAND FLAVIA MIN 3Von 023 XR HAND FLAVIA MIN 3V EXAMINATION: XR HAND FLAVIA MIN 3V HISTORY: Pain ; bilateral thumb pain and bruising after falling COMPARISON: No relevant comparison available. FINDINGS: RIGHT FINDINGS: BONES: No significant arthropathy or acute abnormality. SOFT TISSUES: No visible soft tissue swelling. OTHER: Negative. LEFT FINDINGS: BONES: No significant arthropathy or acute abnormality. SOFT TISSUES: No visible soft tissue swelling. OTHER: Negative. IMPRESSION: RIGHT CONCLUSION: No acute bone abnormality. Mild degenerative changes. LEFT CONCLUSION: No acute bone abnormality. Mild degenerative changes. Electronically authenticated by: CHRISSY STILL Date: 2022-07-29 13:55 Normal [facility] DIGITAL MAMMOGRAM DIAGNOSTIC RIGHTon 09-15-2021 DIGITAL MAMMOGRAM DIAGNOSTIC RIGHT [facility] Department of Radiology [address] [place] [id number] ===== Patient Name: RHEA ALANIZ : 1960 Sex: F Age: Race: White Pt. Location: OUTP Patient Status: D Ordered Date: 09/15/2021 12:25:00 PM Completed Date: 09/15/2021 12:56 PM Requesting Provider: RONALD SAMANO Attending Provider: RONALD SAMANO Report Copy To: Signs & Symptoms: additional views RT breast History: Comments: Exam: DIGITAL MAMMOGRAM DIAGNOSTIC RIGHT ===== DIGITAL MAMMOGRAM DIAGNOSTIC RIGHT 09/15/2021 12:56 PM CLINICAL INDICATIONS: additional views RT breast TECHNOLOGIST COMMENTS: Spot magnification CC view right breast for calcifications per . Second spot view done without marker in place. QUESTION FOR THE RADIOLOGIST: RISK FACTORS: Personal: Post-menopausal patient ; Family: Weak family history of breast cancer (Maternal Grandmother,85) PRIOR PROCEDURE: COMPARISON: Comparison is made to images from 09/15/2021 (bilateral) and images from 09/09/2020 (bilateral) and images from 09/27/2016 (bilateral) and images from 07/31/2015 (bilateral) and images from 03/28/2013 (left) and images from 03/18/2013 (bilateral) FINDINGS: Spot magnification compression view of the right breast middle depth in the CC projection revealed few scattered microcalcifications without suspicious grouping pattern. Therefore, the findings is probably benign and 6 months follow-up is recommended to confirm stability IMPRESSION: Group of microcalcification seen in the middle depth of the right breast only in the CC projection without pleomorphic suspicious pattern or angular margins. 6 months follow-up is recommended to confirm stability. ASSESSMENT: BI-RADS 3, probably benign Recommendation: 6 months follow-up right mammogram including spot magnification compression view in the CC projection. Electronically signed: Rex Wagner. Transcribed by: [email or web address], User Resident: Electronically Signed by: REX WAGNER @ 09/16/2021 01:36 PM Normal [facility] MAMMOGRAM SCREENING TOMOSYNT HESIS BILATERALon 09-15-2021 MAMMOGRAM SCREENING TOMOSYNTHESIS BILATERAL [facility] Department of Radiology [address] [place] [address] ===== Patient Name: RHEA ALANIZ : 1960 Sex: F Age: Race: White Pt. Location: [facility] Patient Status: D Ordered Date: 09/11/2021 2:55:00 PM Completed Date: 09/15/2021 12:50 PM Requesting Provider: RONALD SAMANO Attending Provider: RONALD SAMANO Report Copy To: Signs & Symptoms: Z12.31 En[facility]tr screen mammogram for malignant neoplasm of breast I10 History: Kat previous study 09/09/20 [facility] Comments: Breast Implant?: N , Ultrasound, if necessary?: Y Exam: MAMMOGRAM SCREENING TOMOSYNTHESIS BILATERAL ===== MAMMOGRAM SCREENING TOMOSYNTHESIS BILATERAL 09/15/2021 12:50 PM CLINICAL INDICATIONS: Z12.31 Encntr screen mammogram for malignant neoplasm of breast I10 TECHNOLOGIST COMMENTS: Ordered as screening, but pt having breast issues. Occasional throbbing, shooting pain below LT nipple X 2 wks. Palpates lump both breasts X 1 month-indicated with markers. reviewed images. Breast cancer risk: 10 yr 3.0%, lifetime 6.1%. QUESTION FOR THE RADIOLOGIST: Breast Implant?: N , Ultrasound, if necessary?: Y PROTOCOL: 2-D and Tomosynthesis mammogram images are obtained for each breast as well as synthetic mammogram images for each beast in both projections. CAD STATEMENT: Two standard digital views of both breasts were performed and reviewed with [employer]. RISK FACTORS: Personal: Post-menopausal patient ; Family: Weak family history of breast cancer (Maternal Grandmother,85) PRIOR PROCEDURE: COMPARISON: Comparison is made to images from 09/09/2020 (bilateral) and images from 09/27/2016 (bilateral) and images from 07/31/2015 (bilateral) and images from 03/28/2013 (left) and images from 03/18/2013 (bilateral) FINDINGS: The breast parenchyma is heterogeneously dense which may obscure small masses, but is unchanged in pattern and distribution. No suspicious masses, microcalcifications, or areas of architectural distortion are identified. Few scattered benign calcifications are seen bilaterally. A group of Keya calcification is seen in the retroareolar region of the right breast in the CC projection within the middle depth which could not be localized in the MLO projection. Therefore, spot magnification compression views is recommended for further evaluation. ASSESSMENT: BI-RADS-0 Incomplete: Need additional imaging evaluation. RECOMMENDATION: Spot magnification compression view of the annotated of microcalcification in the middle depth of the right breast in the CC projection is recommended Electronically signed: Rex Wagner. Transcribed by: [email or web address], User Resident: Electronically Signed by: REX WAGNER @ 09/16/2021 01:34 PM Normal [facility] Comment on above: Order Comment: Breas t Implant?: N , Ultrasound, if necessary?: Y BASIC METABOLIC PANELon -2 Calcium [Mass/Vol] 9.3 mg/dL Normal 8.6-10.3 [facility] Comment on above: Performed By: #### 0 0071, [id number] #### [facility] [address] [place] [address], [place] Chloride [Moles/Vol] 105 mmol/L Normal 98-107 [facility] Comment on above: Performed By: #### 0 0071, [id number] #### [facility] [address] [place] [address], [place] CO2 [Moles/Vol] 30 mmol/L Normal 21-31 [facility] Comment on above: Performed By: #### 0 0071, [id number] #### [facility] [address] [place] [address], [place] Creatinine [Mass/Vol] 0.77 mg/dL Normal 0.60-1.20 [facility] Comment on above: Performed By: #### 0 0071, [id number] #### [facility] [address] [place] [address], [place] GFR/1.73 sq M.predicted among blacks MDRD (S/P/Bld) [Vol rate/Area] mL/min/{1.73_m2} Normal >60 [facility] Comment on above: Performed By: #### 0 0071, [id number] #### [facility] [address] [place] [address], [place] GFR/1.73 sq M.predicted among non-blacks MDRD (S/P/Bld) [Vol rate/Area] mL/min/{1.73_m2} Normal >60 [facility] Comment on above: Performed By: #### 0 0071, [id number] #### [facility] [address] [place] [address], [place] Glucose [Mass/Vol] 81 mg/dL Normal 70-100 [facility] Comment on above: Performed By: #### 0 70, [id number] #### [facility] [address] [place] [address], [place] Potassium [Moles/Vol] 4.2 mmol/L Normal 3.5-5.1 [facility] Comment on above: Performed By: #### 0 007, [id number] #### [facility] [address] [place] [address], [place] Sodium [Moles/Vol] 141 mmol/L Normal 136-145 [facility] Comment on above: Performed By: #### 0 007, [id number] #### [facility] [address] [place] [address], [place] Urea nitrogen [Mass/Vol] 20 mg/dL Normal 7-25 [facility] Comment on above: Performed By: #### 0 007, 09507 #### [facility] [address] [place] [address], [place] C REACTIVE PROTEINon 022 CRP [Mass/Vol] 1.7 mg/L Normal 0.0-7.0 [facility] Comment on above: Performed By: #### 6 1405 #### [facility] [address] [place] [address], [place] HEMOGLOBIN A1Con 07-14-2021 Glucose [Moles/Vol] 114 mmol/L Normal [facility] Comment on above: Performed By: #### 0 007, [id number] #### [facility] [address] [place] [address], [place] HbA1c (Bld) [Mass fraction] 5.6 % Normal 4.0-6.0 [facility] Comment on above: Performed By: #### 0 70, [id number] #### [facility] [address] [place] [address], [place] SEDIMENTATION RATEon 022 SED RATE 6 mm/hr Normal 0-20 [facility] Comment on above: Performed By: #### 0 0071, [id number] #### [facility] [address] TSH3on 07-14-2021 TSH 3RD GENERATION 1.94 uIU/mL Normal 0.34-5.60 [facility] Comment on above: Performed By: #### 0 0071, [id number] #### [facility] [address] [place], [place] [id number] [place] [address] MRI CERVICAL SPINE WO CONTRA STon 06-27-2021 MRI CERVICAL SPINE WO CONTRAST [facility] Department of Radiology [address] [place], [place] [id number] ===== Patient Name: RHEA ALANIZ : 1960 Sex: F Age: Race: White Pt. Location: Patient Status: D Ordered Date: 06/16/2021 4:30:00 PM Completed Date: 06/27/2021 08:57 AM Requesting Provider: CALOS BEYER Attending Provider: Report Copy To: Signs & Symptoms: M54.12 Radiculopathy, cervical region I10 History: [place], PHONE:[phone],*NEE DS ORTHO F/U APPT. NO METAL Comments: Evaluate Exam: MRI CERVICAL SPINE WO CONTRAST ===== MRI CERVICAL SPINE WO CONTRAST 06/27/2021 8:57 AM CLINICAL INDICATIONS: M54.12 Radiculopathy, cervical region I10 TECHNOLOGIST COMMENTS: c/o neck pain radiating to left arm QUESTION FOR THE RADIOLOGIST: Evaluate PROTOCOL: The following pulse sequences were utilized when imaging the cervical spine: sagittal T2, sagittal T1, sagittal STIR, axial T2, and axial T2* disc. COMPARISON: 01/14/2013. FINDINGS: Artifact in the cervical spine from prior the C5-7 ACDF with interbody spacers. No prevertebral soft tissue swelling. The alignment is normal. Artifact and distortion facet degenerative changes. No visualized fracture. No ligament pathology. Cervical spinal cord is normal. At C2-C3: Central disc protrusion and facet degenerative changes. At C3-C4: Mild disc bulge and facet degenerative changes noted. At C4-C5: Mild disc bulge and central protrusion with facet degenerative changes. At C5-C6: Postoperative changes with residual spurring eccentric to the left. Facet degenerative changes. At C6-C7: Postsurgical changes. Facet arthritis noted. At C7-T1: There is a normal disc, central canal, and neural foramen. IMPRESSION: 1. Postoperative and degenerative changes as detailed above. Electronically signed: Bernice Hanks. Transcribed by: [email or web address], User Resident: Electronically Signed by: BERNICE HANKS @ 06/28/2021 10:29 AM Normal [facility] Comment on above: Order Comment: Evalu ate CERVICAL SPINE 4 OR 5 VIEWSo n 06-16-2021 CERVICAL SPINE 4 OR 5 VIEWS [facility] Department of Radiology [address] [place] [id number] ===== Patient Name: RHAE ALANIZ : 1960 Sex: F Age: Race: White Pt. Location: Patient Status: O Ordered Date: 06/16/2021 10:30:00 AM Completed Date: 06/16/2021 10:30 AM Requesting Provider: CALOS BEYER Attending Provider: CALOS BEYER Report Copy To: Signs & Symptoms: M54.12 Radiculopathy, cervical region I10 History: Kat Comments: Evaluate Exam: CERVICAL SPINE 4 OR 5 VIEWS ===== CERVICAL SPINE 4 OR 5 VIEWS 06/16/2021 10:30 AM CLINICAL INDICATIONS: M54.12 Radiculopathy, cervical region I10 TECHNOLOGIST COMMENTS: c spine fracture 2019 c spine surgery 2011 follow up QUESTION FOR THE RADIOLOGIST: Evaluate PROTOCOL: AP,Odontoid, Lateral, Flexion and Extension views. COMPARISON: 01/01/2020 FINDINGS: No abnormal motion with flexion-extension views. Fusion stable alignment of the lower cervical spine. No acute compression deformity. C1-C2 in satisfactory alignment. Lung apices are clear. IMPRESSION: Multilevel fusion without abnormal motion. No change in alignment. Electronically signed: Mary Norris. Transcribed by: [email or web address], User Resident: Electronically Signed by: MARY NORRIS @ 06/16/2021 01:23 PM Normal [facility] Comment on above: Order Comment: Evalu ate CBC W/DIFFon 06-09-2021 ABS IMM GRANS 0.0 10*3/uL Normal 0.0-0.2 [facility] Comment on above: Performed By: #### 5 0103 ####[facility] ABS NEUTROPHILS 3.7 10*3/uL Normal 1.6-7.6 [facility] Comment on above: Performed By: #### 5 0103 ####[facility] [place] [address], [facility] Basophils (Bld) [#/Vol] 0.0 10*3/uL Normal 0.0-0.2 [facility] Comment on above: Performed By: #### 5 0103 ####[facility] [facility] [place] [address], [facility] Basophils/100 WBC (Bld) 0.5 % Normal 0.0-1.0 [facility] Comment on above: Performed By: #### 5 0103 ####[facility] [facility] [place] [address], [facility] Eosinophils (Bld) [#/Vol] 0.5 10*3/uL Normal 0.0-0.5 [facility] Comment on above: Performed By: #### 5 0103 ####[facility] [facility] Eosinophils/100 WBC (Bld) 8.3 % High 0.0-6.0 [facility] Comment on above: Performed By: #### 5 0103 ####[facility] [facility].[address] Erythrocyte distribution width (RBC) [Ratio] 11.5 % Normal 11.5-15.0 [facility] Comment on above: Performed By: #### 5 3 ####[facility] [facility].[address] Hematocrit (Bld) [Volume fraction] 40.7 % Normal 36.0-45.0 [facility] Comment on above: Performed By: #### 5 3 ####[facility] [facility].[address] Hemoglobin (Bld) [Mass/Vol] 14.0 g/dL Normal 12.0-15.0 [facility] Comment on above: Performed By: #### 5 3 ####[facility] [place], [place] [address] IMMATURE GRANS 0.2 % Normal 0.0-1.0 [facility] Comment on above: Performed By: #### 5 0103 ####[facility] Lymphocytes (Bld) [#/Vol] 1.0 10*3/uL Low 1.2-4.0 [facility] Comment on above: Performed By: #### 5 0103 ####[facility] Lymphocytes/100 WBC (Bld) 17.5 % Low 20.0-45.0 [facility] Comment on above: Performed By: #### 5 0103 ####[address] MCH (RBC) [Entitic mass] 31.3 pg Normal 27.0-33.0 [facility] Comment on above: Performed By: #### 5 0103 ####[facility] MCHC (RBC) [Mass/Vol] 34.4 g/dL Normal 32.0-35.0 [facility] Comment on above: Performed By: #### 5 0103 ####[facility] MCV (RBC) [Entitic vol] 90.8 fL Normal 82.0-98.0 [facility] Comment on above: Performed By: #### 5 3 ####[facility] [place] [address] Monocytes (Bld) [#/Vol] 0.4 10*3/uL Normal 0.1-1.0 [facility] Comment on above: Performed By: #### 3 ####[facility] [place] [address] MONOS 7.4 % Normal 5.0-12.0 [facility] Comment on above: Performed By: #### 5 0103 ####[facility] [facility] [place] [address], [facility] Neutrophils/100 WBC (Bld) 66.1 % Normal 40.0-72.0 [facility] Comment on above: Performed By: #### 5 0103 ####[facility] [facility] [place] [address], [facility] Nucleated RBC/100 WBC (Bld) [Ratio] 0 % Normal 0-0 [facility] Comment on above: Performed By: #### 5 0103 ####[facility] PLAT CNT 343 10*3/uL Normal 150-400 [facility] Comment on above: Performed By: #### 5 0103 ####[facility] [place] [address], [facility] RBC (Bld) [#/Vol] 4.48 10*6/uL Normal 3.80-5.00 [facility] Comment on above: Performed By: #### 5 0103 ####[facility] [facility] [place] [address], [facility] WBC (Bld) [#/Vol] 5.54 10*3/uL Normal 4.00-10.60 [facility] Comment on above: Performed By: #### 5 0103 ####[facility] [facility].[address] COMP METABOLIC PANELon 06-09 Albumin [Mass/Vol] 4.6 g/dL Normal 3.5-5.7 [facility] Comment on above: Performed By: #### 6 1405 #### [facility] [address] [facility] [place] [address], [facility] ALKALINE PHOSPH 53 IU/L Normal 34-104 [facility] Comment on above: Performed By: #### 6 1405 #### [facility] [address] [place] [address], [facility] ALT [Catalytic activity/Vol] 7 U/L Normal 7-52 [facility] Comment on above: Performed By: #### 6 1405 #### [facility] [address] [place] [address], [facility] AST [Catalytic activity/Vol] 11 U/L Low 13-39 [facility] Comment on above: Performed By: #### 6 1405 #### [facility] [address] [place] [address], [facility] Bilirubin [Mass/Vol] 0.5 mg/dL Normal 0.3-1.0 [facility] Comment on above: Performed By: #### 6 1405 #### [facility] [address] [place] [address], [facility] Calcium [Mass/Vol] 9.6 mg/dL Normal 8.6-10.3 [facility] Comment on above: Performed By: #### 6 1405 #### [facility] [address] [place] [address], [facility] Chloride [Moles/Vol] 102 mmol/L Normal 98-107 [facility] Comment on above: Performed By: #### 6 1405 #### [facility] [address] [place] [address], [place] CO2 [Moles/Vol] 27 mmol/L Normal 21-31 [facility] Comment on above: Performed By: #### 6 1405 #### [facility] [address] [place] [address], [place] Creatinine [Mass/Vol] 0.90 mg/dL Normal 0.60-1.20 [facility] Comment on above: Performed By: #### 6 1405 #### [facility] [address] [place] [address], [place] GFR/1.73 sq M.predicted among blacks MDRD (S/P/Bld) [Vol rate/Area] mL/min/{1.73_m2} Normal >60 [facility] Comment on above: Performed By: #### 6 1405 #### [facility] [address] [place] [address], [place] GFR/1.73 sq M.predicted among non-blacks MDRD (S/P/Bld) [Vol rate/Area] mL/min/{1.73_m2} Normal >60 [facility] Comment on above: Performed By: #### 6 1405 #### [facility] [address] [place] [address], [place] Glucose [Mass/Vol] 136 mg/dL High 70-100 [facility] Comment on above: Performed By: #### 6 1405 #### [facility] [address] [place] [address], [place] Potassium [Moles/Vol] 3.6 mmol/L Normal 3.5-5.1 [facility] Comment on above: Performed By: #### 6 1405 #### [facility] [address] [place] [address], [place] Protein [Mass/Vol] 6.8 g/dL Normal 6.0-8.3 [facility] Comment on above: Performed By: #### 6 1405 #### [facility] [address] [place] [address], [place] Sodium [Moles/Vol] 138 mmol/L Normal 136-145 [facility] Comment on above: Performed By: #### 6 1405 #### [facility] [address] [place] [address], [place] Urea nitrogen [Mass/Vol] 10 mg/dL Normal 7-25 [facility] Comment on above: Performed By: #### 6 1405 #### [place] [address], [facility] PORTABLE CHEST 1 VIEWon 05-19 PORTABLE CHEST 1 VIEW [facility] Department of Radiology [address] [place] [id number] ===== Patient Name: RHEA ALANIZ : 1960 Sex: F Age: Race: White Pt. Location: [facility] Patient Status: E Ordered Date: 06/09/2021 10:55:00 AM Completed Date: 06/09/2021 11:24 AM Requesting Provider: RADHA TRUJILLO Attending Provider: RADHA TRUJILLO Report Copy To: Signs & Symptoms: Chest Pain History: Comments: Aspiration Exam: PORTABLE CHEST 1 VIEW ===== PORTABLE CHEST 1 VIEW CLINICAL INDICATION: Tremors, nausea vomiting. COMPARISON: 08/31/2020. IMPRESSION: 1. No acute cardiopulmonary abnormality. Electronically signed: Ross Deras. Transcribed by: [email or web address], User Resident: Electronically Signed by: ROSS DERAS @ 06/09/2021 11:49 AM Normal [facility] Comment on above: Order Comment: Aspir ation TROPONIN-Ion 06-09-2021 Troponin I.cardiac [Mass/Vol] 0.00 ng/mL Normal 0.00-0.04 [facility] Comment on above: Result Comment: REFE RENCE RANGES: 0.00 - 0.04 ng/ml NORMAL 0.05 - 0.50 ng/ml INDETERMINATE > 0.50 ng/ml CONSISTENT WITH AN M.I. Performed By: #### 6 1405 #### [facility] [address] [facility]. [address] Troponin I.cardiac [Mass/Vol] 0.00 ng/mL Normal 0.00-0.04 [facility] Comment on above: Result Comment: REFJorge L SALOMON RANGES: 0.00 - 0.04 ng/ml NORMAL 0.05 - 0.50 ng/ml INDETERMINATE > 0.50 ng/ml CONSISTENT WITH AN M.I. Performed By: #### 6 1405 #### [facility] [address] [facility]. [address] Operative Reporton Operative Report MR#: [id number] [facility] Pt. Name: Rhea Alaniz Room #: PMC Discharge Date: Birthdate: 1960 OPERATIVE REPORT DATE OF SURGERY: 03/30/2021 SURGEON: Fady Brady MD ASSISTANTS: Usha Navarro MD ANESTHESIA: Local with sedation. PREOPERATIVE DIAGNOSIS: Right tibial neuritis right ankle Pain of distal right lower extremity PROCEDURE: Right lower extremity periosteal tibia and fibula injection under ultrasound guidance. POSTOPERATIVE DIAGNOSIS: Right tibial neuritis right ankle Pain of distal right lower extremity CLINICAL NOTE: The patient is a 60-year-old female with chronic right ankle pain with history of distal tibia/fibula fracture s/p surgical repair and subsequent hardware removal. Her pain is consistent with neuritis after fracture and hardware removal. MONITORS: Standard ASA monitors were placed throughout the entire procedure and the immediately postoperative. The patient was communicating with us throughout the entire procedure as well. PROCEDURE: After informed consent, the patient was taken to the procedure room and placed in the supine position. Timeout was accomplished. Correct sites were marked. The skin was prepped with chlorhexidine alcohol and draped in sterile fashion. Ultrasound was used to visualize the medial distal tibia. Lidocaine was used to numb the skin. A 27-gauge 1.5 inch needle was used to infiltrate injected solution containing 4 cc 2% lidocaine, 4 cc 0.25% bupivacaine, and 30 mg Depo-Medrol; 5 cc of solution was injected at the tibia and 3 cc injected at the fibula. The patient tolerated the procedure adequately and was taken to recovery in satisfactory condition. There were no apparent complications. In the PACU, the patient reported approximately 60% pain improvement. The plan is for the patient to return to clinic for follow-up and further evaluation. Reviewed By: Usha Navarro MD 03/30/2021 12:15 P Edited and Electronically Signed by: Fady Brady MD 03/30/2021 12:33 P Fady Brady MD I was present for the entire procedure. Date Dict: 03/30/2021/11:59 A/Usha Navarro MD Date Trans: 03/30/2021 11:59 A/ [id number]_[id number] cc: Ronald Samano M.D. [address] Internal Medicine [facility] [address] [facility] ANKLE RIGHT 3 Son 12-31-19 21 ANKLE RIGHT 3 [facility] Department of Radiology [address] [place] [phone] ===== Patient Name: RHEA ALANIZ : 1960 Sex: F Age: Race: White Pt. Location: Patient Status: D Ordered Date: 12/30/2020 9:25:00 AM Completed Date: 12/30/2020 09:30 AM Requesting Provider: SUKH MCCLURE Attending Provider: JOANN KEENAN Report Copy To: Signs & Symptoms: M79.671 Pain in right foot I10 History: [place] Comments: standing Exam: ANKLE RIGHT 3 VWS ===== ANKLE RIGHT 3 [facility] CLINICAL INFORMATION: pt states having a lot of lateral rt foot pain and swelling, recent hardware removal out of knee then pain started history of ankle fracture yrs ago. M79.671 Pain in right foot I10. COMPARISON: None. IMPRESSION: 1. Posttraumatic deformity of the distal tibia and fibula with removal of hardware, ghost tracts noted. Osteopenia and degenerative changes. The ankle mortise is preserved. Electronically signed: Bernice Hanks. Transcribed by: [email or web address], User Resident: Electronically Signed by: BERNICE HANKS @ 12/31/2020 08:26 AM Normal [facility] Comment on above: Order Comment: stand ing FOOT RIGHT 3 [facility] 1 FOOT RIGHT 3 [facility] Department of Radiology [address] [place] [phone] ===== Patient Name: HREA ALANIZ : 1960 Sex: F Age: Race: White Pt. Location: Patient Status: D Ordered Date: 12/30/2020 9:25:00 AM Completed Date: 12/30/2020 09:30 AM Requesting Provider: SUKH MCCLURE Attending Provider: JOANN KEENAN Report Copy To: Signs & Symptoms: M79.671 Pain in right foot I10 History: Comments: standing Exam: FOOT RIGHT 3 [facility] ===== FOOT RIGHT 3 VWS CLINICAL INFORMATION: pt states having a lot of lateral rt foot pain and swelling, recent hardware removal out of knee then pain started history of ankle fracture yrs ago. M79.671 Pain in right foot I10. COMPARISON: None. IMPRESSION: 1. No acute fracture. Degenerative changes of the first metatarsal phalangeal joint. Midfoot degenerative changes are noted. Mild osteopenia. Old fracture deformity of the distal fibula. Electronically signed: Bernice Hanks. Transcribed by: [email or web address], User Resident: Electronically Signed by: BERNICE HANKS @ 12/31/2020 08:25 AM Normal [facility] Comment on above: Order Comment: stand ing C REACTIVE PROTEINon 021 CRP [Mass/Vol] 2.1 mg/L Normal 0.0-7.0 [facility] Comment on above: Performed By: #### 0 0071, [address] #### [facility] [address] CBC W/DIFFon 12-24-2020 ABS IMM GRANS 0.0 10*3/uL Normal 0.0-0.2 [facility] Comment on above: Performed By: #### 5 3496, [address]793 ####[facility] ABS NEUTROPHILS 3.8 10*3/uL Normal 1.6-7.6 [facility] Comment on above: Performed By: #### 5 5296, [address]337 ####[facility] Basophils (Bld) [#/Vol] 0.0 10*3/uL Normal 0.0-0.2 [facility] Comment on above: Performed By: #### 5 6506, [address] ####[facility] [facility] [place] [address], [facility] Basophils/100 WBC (Bld) 0.4 % Normal 0.0-1.0 [facility] Comment on above: Performed By: #### 5 6505, [address] ####[facility] [place] [address], [facility] Eosinophils (Bld) [#/Vol] 0.4 10*3/uL Normal 0.0-0.5 [facility] Comment on above: Performed By: #### 5 6505, 12685 ####[facility] [facility] [place] [address], [facility] Eosinophils/100 WBC (Bld) 6.6 % High 0.0-6.0 [facility] Comment on above: Performed By: #### 5 6505, [address] ####[place] [address] [facility].[address] Erythrocyte distribution width (RBC) [Ratio] 11.9 % Normal 11.5-15.0 [facility] Comment on above: Performed By: #### 5 6505, [address] ####[place] [address] [facility].[address] Hematocrit (Bld) [Volume fraction] 43.5 % Normal 36.0-45.0 [facility] Comment on above: Performed By: #### 5 6505, 81046 ####[facility] [facility] [place] [address], [facility] Hemoglobin (Bld) [Mass/Vol] 14.0 g/dL Normal 12.0-15.0 [facility] Comment on above: Performed By: #### 5 6505, 26763 ####[address] [place] [address], [facility] IMMATURE GRANS 0.2 % Normal 0.0-1.0 [facility] Comment on above: Performed By: #### 5 6505, 05651 ####[facility] [facility].[address] Lymphocytes (Bld) [#/Vol] 1.0 10*3/uL Low 1.2-4.0 [facility] Comment on above: Performed By: #### 5 6505, 90816 ####[facility] [facility].[address] Lymphocytes/100 WBC (Bld) 17.8 % Low 20.0-45.0 [facility] Comment on above: Performed By: #### 5 6505, 220[address] ####[facility] [place] [address] MCH (RBC) [Entitic mass] 31.3 pg Normal 27.0-33.0 [facility] Comment on above: Performed By: #### 5 6505, 08942 ####[facility] MCHC (RBC) [Mass/Vol] 32.2 g/dL Normal 32.0-35.0 [facility] Comment on above: Performed By: #### 5 6505, [address] ####[place] [address] MCV (RBC) [Entitic vol] 97.3 fL Normal 82.0-98.0 [facility] Comment on above: Performed By: #### 5 6505, 27815 ####[facility] [place] [address] Monocytes (Bld) [#/Vol] 0.3 10*3/uL Normal 0.1-1.0 [facility] Comment on above: Performed By: #### 5 6505, 58413 ####[facility] [place] [address].[place] [address], [facility] MONOS 6.1 % Normal 5.0-12.0 [facility] Comment on above: Performed By: #### 5 6505, 46025 ####[facility] [facility] [place] [address], [facility] Neutrophils/100 WBC (Bld) 68.9 % Normal 40.0-72.0 [facility] Comment on above: Performed By: #### 5 6505, 08107 ####[facility] [facility] [place] [address], [facility] Nucleated RBC/100 WBC (Bld) [Ratio] 0 % Normal 0-0 [facility] Comment on above: Performed By: #### 5 6505, 02997 ####[address] [place] [address], [facility] PLAT CNT 294 10*3/uL Normal 150-400 [facility] Comment on above: Performed By: #### 5 6505, 37559 ####[place] [address] [facility] [place] [address], [facility] RBC (Bld) [#/Vol] 4.47 10*6/uL Normal 3.80-5.00 [facility] Comment on above: Performed By: #### 5 6505, 66517 ####[facility] [facility] [place] [address], [facility] WBC (Bld) [#/Vol] 5.57 10*3/uL Normal 4.00-10.60 [facility] Comment on above: Performed By: #### 5 6505, 62431 ####[place] [address] [facility] [place] [address], [facility] SEDIMENTATION RATEon 021 SED RATE 10 mm/hr Normal 0-20 [facility] Comment on above: Performed By: #### 5 6505, 72490 ####[facility] TIBIA FIBULA RIGHTon 021 TIBIA FIBULA RIGHT [facility] Department of Radiology [address] [place] [address] ===== Patient Name: RHEA ALANIZ : 1960 Sex: F Age: Race: White Pt. Location: Patient Status: D Ordered Date: 12/24/2020 8:15:00 AM Completed Date: 12/24/2020 08:26 AM Requesting Provider: SUKH MCCLURE Attending Provider: SUKH MCCLURE Report Copy To: Signs & Symptoms: S82.301D Unsp fx lower end of r tibia, subs for clos fx w routn heal I10 History: Comments: Views (X-RAY, TIBIA AND FIBULA): AP, Lateral Exam: TIBIA FIBULA RIGHT ===== TIBIA FIBULA RIGHT 12/24/2020 8:26 AM CLINICAL INDICATIONS: S82.301D Unsp fx lower end of r tibia, subs for clos fx w routn heal I10 TECHNOLOGIST COMMENTS: Follow up right lower leg surgery QUESTION FOR THE RADIOLOGIST: Views (X-RAY, TIBIA AND FIBULA): AP, Lateral PROTOCOL: AP(PA) and Lateral views were obtained. COMPARISON: 12/16/2020 IMPRESSION: Bony remodeling and ongoing healing is appreciated of the distal tibia and fibula. No acute complication. Alignment is maintained. Prior hardware removal Electronically signed: Lissa Guerin. Transcribed by: [email or web address], User Resident: Electronically Signed by: LISSA GUERIN @ 12/25/2020 10:55 AM Normal [facility] Comment on above: Order Comment: Views (X-RAY, TIBIA AND FIBULA): AP, Lateral TIBIA FIBULA RIGHTon 021 TIBIA FIBULA RIGHT [facility] Department of Radiology [address] [place] [phone] ===== Patient Name: RHEA ALANIZ : 1960 Sex: F Age: Race: White Pt. Location: Patient Status: D Ordered Date: 12/16/2020 8:20:00 AM Completed Date: 12/16/2020 08:20 AM Requesting Provider: JOANN KEENAN Attending Provider: Report Copy To: Signs & Symptoms: Z48.89 Encounter for other specified surgical aftercare I10 History: Comments: evaluate Exam: TIBIA FIBULA RIGHT ===== TIBIA FIBULA RIGHT 12/16/2020 8:20 AM CLINICAL INDICATIONS: Z48.89 Encounter for other specified surgical aftercare I10 TECHNOLOGIST COMMENTS: ortho follow up. right tibia hardware removal 2 weeks ago QUESTION FOR THE RADIOLOGIST: evaluate PROTOCOL: AP(PA) and Lateral views were obtained. COMPARISON: 12/09/2020 FINDINGS: No acute fractures or dislocations. There is persistent bony callus formation of the distal tibia and fibula without visible fracture lines. The tibia and fibula are in adequate anatomic alignment. There are degenerative changes of the ankle and knee joint. IMPRESSION: * Persistent bony callus of the distal tibia and fibula without visible fracture lines consistent with satisfactory healed old fracture. Approved by:Latonya Olvera12/16/2020 3:54 PM. I, Rex Wagner,have reviewed the image(s) and agree with the findings in this report. Electronically signed: Rex Wagner. Transcribed by: [id number], User Resident: LATONYA LINO Electronically Signed by: REX WAGNER @ 12/17/2020 08:59 AM I personally read this/these film(s) with this resident Normal [facility] Comment on above: Order Comment: evalu ate TIBIA FIBULA RIGHTon 021 TIBIA FIBULA RIGHT [facility] Department of Radiology [address] [place] [id number] ===== Patient Name: RHEA ALANIZ : 1960 Sex: F Age: Race: White Pt. Location: Patient Status: Ordered Date: 12/09/2020 8:35:00 AM Completed Date: 12/09/2020 08:36 AM Requesting Provider: JOANN KEENAN Attending Provider: Report Copy To: Signs & Symptoms: Z48.89 Encounter for other specified surgical aftercare I10 History: Comments: Evaluate Exam: TIBIA FIBULA RIGHT ===== TIBIA FIBULA RIGHT 12/09/2020 8:36 AM CLINICAL INDICATIONS: Z48.89 Encounter for other specified surgical aftercare I10 TECHNOLOGIST COMMENTS: ortho follow up rt tib fib fracture surgery 12/02/20 QUESTION FOR THE RADIOLOGIST: Evaluate PROTOCOL: AP(PA) and Lateral views were obtained. COMPARISON: Fluoroscopic images on 12/02/2020 FINDINGS: No acute fractures or dislocations. There is healing fractures of the distal tibia and fibula that are in near anatomic alignment with small amount of residual bony callus of the distal tibia. The tibial nail has been removed. Ankle and knee joint space is preserved with some degenerative change. No soft tissue abnormalities. IMPRESSION: * Continued healing of distal tibia and fibula fractures with near anatomic alignment after tibial nail removal. Approved by:Latonya Olvera12/09/2020 9:18 AM. I, Rex Wagner,have reviewed the image(s) and agree with the findings in this report. Electronically signed: Rex Wagner. Transcribed by: [email or web address], User Resident: LATONYA LINO Electronically Signed by: REX WAGNER @ 12/09/2020 12:00 PM I personally read this/these film(s) with this resident Normal [facility] Comment on above: Order Comment: Evalu ate Operative Reporton Operative Report MR#: [id number] [facility] Pt. Name: Rhea Alaniz Room #: 0C Discharge Date: Birthdate: 1960 OPERATIVE REPORT DATE OF SURGERY: 12/02/2020 SURGEON: Joann Keenan M.D. PREOPERATIVE DIAGNOSIS: Right tibial nail, symptomatic hardware. POSTOPERATIVE DIAGNOSIS: Right tibial nail, symptomatic hardware. PROCEDURE PERFORMED: Right intramedullary tibial nail removal. ASSISTANTS: 1. Jenise Acuna M.D. 2. Mitul Fuentes MD. 3. Leo Peters MD. ANESTHESIA: General endotracheal. SPECIMENS: None. EXPLANT: A Thea tibial nail with 1 associated proximal cortical screw. TOURNIQUET TIME: 17 minutes. COMPLICATIONS: None. INDICATION FOR PROCEDURE: The patient is a 60-year-old female, who previously sustained a right midshaft tibia and associated fibula fracture in 2014. She underwent right tibial intramedullary nail fixation. The patient did well postoperatively, however, has noted a symptomatic hardware to the proximal screws. She elects to proceed with right tibial intramedullary nail removal and removal of associated tear. DESCRIPTION OF PROCEDURE: The patient was met in the preoperative holding area. Informed consent was confirmed. The operative extremity was marked. The patient was taken back to the operating room and placed supine on the operating room table. General anesthesia was induced without complications. A tourniquet was placed to the right upper thigh and the extremity was prepped and draped in standard sterile fashion. We began our procedure with a surgical time-out to confirm the correct operative site, procedure, laterality. We began by marking the previous infrapatellar splitting incision. Once marked, the limb was exsanguinated with an Esmarch and the tourniquet inflated to 300 mmHg. We utilized the previous incision and the skin incision was made with a #10 blade scalpel. The underlying subcutaneous tissues were dissected and the patellar tendon was encountered. We performed a patellar splitting incision, which allowed access to the most proximal portion of the tibial nail. We removed the soft tissue with a Bovie and rongeur, which allowed us to thread in the conical [place] tibial nail removal. Once this was secured, the most proximal interlocking screw was localized under x-ray imaging and a skin incision was made. The screw was then removed without difficulty. We then again retightened the conical insert proximally and attached the associated back flap. The tibial nail was then backslapped out without difficulty. We then obtained final x-rays in AP and lateral view, which demonstrated satisfactory hardware removal of the tibial implant and proximal interlocking screw. At this point, we were satisfied with our procedure and the wound was thoroughly irrigated with Betadine and normal saline. The wound was closed in a layered fashion with 0 followed by 2-0 Vicryl and the skin was closed with 4-0 Novafil in a horizontal suture pattern. Soft, dry dressings were applied. The patient was awoken from anesthesia and transferred to the PACU in good and stable condition. Dr. Keenan was present for all orellana and critical portions of procedure and immediately available at all times. DISCHARGE INSTRUCTIONS: The patient will be weightbear as tolerated to the right lower extremity. She is provided prescriptions for pain control and DVT prophylaxis at discharge. All questions and concerns were addressed to the patient and family prior to discharge. They will follow up with Dr. Keenan in 10-14 days for wound evaluation and suture removal. Electronically Signed by: Joann Keenan M.D. 12/03/2020 01:20 P Joann Keenan M.D. I was present for the orellana and critical portions and I was otherwise immediately available to assist. Date Dict: 12/02/2020/01:16 P/Jenise Acuna MD Date Trans: 12/02/2020 11:23 P/mmo [id number] cc: Ronald Samano M.D. [address] [facility] Internal Medicine [place] [address] Normal [facility] POC GLUCOSE LABon 12-02-2020 Glucose [Mass/Vol] 72 mg/dL Normal 70-100 [facility] Comment on above: Performed By: #### 8 5499 #### [address] TIBIA FIBULA RIGHTon 021 TIBIA FIBULA RIGHT [facility] Department of Radiology [address] [place] [id number] ===== Patient Name: RHEA ALANIZ : 1960 Sex: F Age: Race: White Pt. Location: OUT Patient Status: O Ordered Date: 12/02/2020 12:00:00 PM Completed Date: 12/02/2020 01:20 PM Requesting Provider: JOANN KEENAN Attending Provider: JOANN KEENAN Report Copy To: Signs & Symptoms: HARDWARE REMOVAL RIGHT TIBIAL NAIL History: Comments: HARDWARE REMOVAL RIGHT TIBIAL NAIL Exam: TIBIA FIBULA RIGHT ===== TIBIA FIBULA RIGHT 12/02/2020 1:20 PM CLINICAL INDICATIONS: HARDWARE REMOVAL RIGHT TIBIAL NAIL. Pain TECHNOLOGIST COMMENTS: Dr Rodriguez, 24 seconds fluoro time for right tibia im nail removal mustafa c-arm in 1245 out 1320 QUESTION FOR THE RADIOLOGIST: HARDWARE REMOVAL RIGHT TIBIAL NAIL PROTOCOL: AP(PA) and Lateral views were obtained. COMPARISON: None FINDINGS: Intraoperative fluoroscopic guidance for right tibia medullary nail removal. Initial images demonstrate intramedullary nail within the tibia with subsequent images demonstrating removal of the hardware. Total fluoroscopy time: 24 Total images obtained: 10 IMPRESSION: Intraoperative fluoroscopic guidance as above. No radiologist was present. Approved by:Velvet Feliz12/02/2020 2:45 PM. I, Lissa Guerin,have reviewed the image(s) and agree with the findings in this report. Electronically signed: Lissa Guerin. Transcribed by: [email or web address], User Resident: VELVET GREEN Electronically Signed by: LISSA GUERIN @ 12/02/2020 03:37 PM I personally read this/these film(s) with this resident Normal [facility] Comment on above: Order Comment: HARDW ARE REMOVAL RIGHT TIBIAL NAIL *MRSA/MSSA DNA NASALon 11-27 *MRSA/MSSA DNA NASAL Clinical Report: (D ) Specimen: NASAL SWAB Collected: 11/27/2020 14:53 Status: Final Last Updated: 11/28/2020 06:13 MSSA DNA (Final) Negative MRSA DNA (Final) Methicillin Resistant Staphylococcus aureus DNA Detected Normal [facility] Comment on above: Performed By: #### 3 1595 #### [facility] [address] [place] [address], [facility] APTTon 11-27-2020 aPTT Coag (Bld) [Time] 26.6 s Normal 25.0-35.0 [facility] Comment on above: Result Comment: ALL RESULTS MUST BE INTERPRETED WITH RESPECT TO BLOOD DRAWING ARTIFACT OR DILUTION ERROR OF ANTICOAGULANT AT THE TIME OF SAMPLING. THE APTT SHOULD NOT BE USED TO MONITOR UNFRACTIONATED HEPARIN THERAPY, THIS LABORATORY NO LONGER HAS AN ESTABLISHED THERAPEUTIC RANGE BASED ON THE APTT. IT IS RECOMMENDED THAT THE UFH - HEPARIN ASSAY (ANTI-XA ACTIVITY) BE USED FOR THIS PURPOSE. Performed By: #### 0 0071, [address] #### [facility] [address] [place] [address], [facility] BASIC METABOLIC PANELon 09- 0-2020 Calcium [Mass/Vol] 9.5 mg/dL Normal 8.6-10.3 [facility] Comment on above: Performed By: #### 6 1405 #### [facility] [address] [place] [address], [facility] Chloride [Moles/Vol] 102 mmol/L Normal 98-107 [facility] Comment on above: Performed By: #### 6 1405 #### [facility] [address] [place] [address], [place] CO2 [Moles/Vol] 29 mmol/L Normal 21-31 [facility] Comment on above: Performed By: #### 6 1405 #### [facility] [address] [place] [address], [facility] Creatinine [Mass/Vol] 0.87 mg/dL Normal 0.60-1.20 [facility] Comment on above: Performed By: #### 6 1405 #### [facility] [address] [place] [address], [place] GFR/1.73 sq M.predicted among blacks MDRD (S/P/Bld) [Vol rate/Area] mL/min/{1.73_m2} Normal >60 [facility] Comment on above: Performed By: #### 6 1405 #### [facility] [address] [place] [address], [place] GFR/1.73 sq M.predicted among non-blacks MDRD (S/P/Bld) [Vol rate/Area] mL/min/{1.73_m2} Normal >60 [facility] Comment on above: Performed By: #### 6 1405 #### [facility] [address] Glucose [Mass/Vol] 120 mg/dL High 70-100 [facility] Comment on above: Performed By: #### 6 1405 #### [facility] [address] Potassium [Moles/Vol] 3.8 mmol/L Normal 3.5-5.1 [facility] Comment on above: Performed By: #### 6 1405 #### [facility] [address] Sodium [Moles/Vol] 138 mmol/L Normal 136-145 [facility] Comment on above: Performed By: #### 6 1405 #### [facility] [address] [facility] Urea nitrogen [Mass/Vol] 12 mg/dL Normal 7-25 [facility] Comment on above: Performed By: #### 6 1405 #### [facility] [address] CBC W/DIFFon 11-27-2020 ABS IMM GRANS 0.0 10*3/uL Normal 0.0-0.2 [facility] Comment on above: Performed By: #### 5 0103 ####[facility] [facility] [place] [address], [facility] ABS NEUTROPHILS 2.4 10*3/uL Normal 1.6-7.6 [facility] Comment on above: Performed By: #### 5 0103 ####[facility] [place] [address], [facility] Basophils (Bld) [#/Vol] 0.1 10*3/uL Normal 0.0-0.2 [facility] Comment on above: Performed By: #### 5 0103 ####[facility] [place] [address], [facility] Basophils/100 WBC (Bld) 1.1 % High 0.0-1.0 [facility] Comment on above: Performed By: #### 5 0103 ####[facility] [place] [address], [facility] Eosinophils (Bld) [#/Vol] 0.3 10*3/uL Normal 0.0-0.5 [facility] Comment on above: Performed By: #### 102 ####[place] [id number] [place] [address], [facility] Eosinophils/100 WBC (Bld) 7.2 % High 0.0-6.0 [facility] Comment on above: Performed By: #### 3 ####[facility] [facility].[address] Erythrocyte distribution width (RBC) [Ratio] 12.0 % Normal 11.5-15.0 [facility] Comment on above: Performed By: #### 3 ####[facility] [facility] Hematocrit (Bld) [Volume fraction] 41.3 % Normal 36.0-45.0 [facility] Comment on above: Performed By: #### 5 3 ####[facility] [place] [address], [facility] Hemoglobin (Bld) [Mass/Vol] 13.9 g/dL Normal 12.0-15.0 [facility] Comment on above: Performed By: #### 5 3 ####[facility] IMMATURE GRANS 0.4 % Normal 0.0-1.0 [facility] Comment on above: Performed By: #### 5 0103 ####[facility] Lymphocytes (Bld) [#/Vol] 1.4 10*3/uL Normal 1.2-4.0 [facility] Comment on above: Performed By: #### 5 3 ####[facility] Lymphocytes/100 WBC (Bld) 29.8 % Normal 20.0-45.0 [facility] Comment on above: Performed By: #### 5 102 ####[address] MCH (RBC) [Entitic mass] 31.7 pg Normal 27.0-33.0 [facility] Comment on above: Performed By: #### 102 ####[place] [id number] [address] MCHC (RBC) [Mass/Vol] 33.7 g/dL Normal 32.0-35.0 [facility] Comment on above: Performed By: #### 3 ####[facility] MCV (RBC) [Entitic vol] 94.1 fL Normal 82.0-98.0 [facility] Comment on above: Performed By: #### 5 3 ####[address] Monocytes (Bld) [#/Vol] 0.4 10*3/uL Normal 0.1-1.0 [facility] Comment on above: Performed By: #### 5 3 ####[address] [place] [address], [facility] MONOS 8.5 % Normal 5.0-12.0 [facility] Comment on above: Performed By: #### 5 0103 ####[facility] [facility] [place] [address], [facility] Neutrophils/100 WBC (Bld) 53.0 % Normal 40.0-72.0 [facility] Comment on above: Performed By: #### 5 0103 ####[facility] [place] [address], [facility] Nucleated RBC/100 WBC (Bld) [Ratio] 0 % Normal 0-0 [facility] Comment on above: Performed By: #### 5 0103 ####[place] [address], [facility] PLAT CNT 306 10*3/uL Normal 150-400 [facility] Comment on above: Performed By: #### 5 0103 ####[facility] [place] [address], [facility] RBC (Bld) [#/Vol] 4.39 10*6/uL Normal 3.80-5.00 [facility] Comment on above: Performed By: #### 5 0103 ####[address] [address], [facility] WBC (Bld) [#/Vol] 4.59 10*3/uL Normal 4.00-10.60 [facility] Comment on above: Performed By: #### 5 3 ####[address] [address], [facility] NM 3 PHASE BONE SCANon 11-27 NM 3 PHASE BONE SCAN [facility] Department of Radiology [address] [place] [id number] ===== Patient Name: RHEA ALANIZ : 1960 Sex: F Age: Race: White Pt. Location: Patient Status: D Ordered Date: 11/26/2020 10:30:00 AM Completed Date: 11/27/2020 11:39 AM Requesting Provider: JOANN KEENAN Attending Provider: JOANN KEENAN Report Copy To: Signs & Symptoms: Z97.8 Presence of other specified devices I10 History: Kat Comments: Right knee (focus on tibial hardware) to ankle. Please include entire leg on delayed imaging Exam: NM 3 PHASE BONE SCAN ===== Study: Three-phase bone scan Sign And Symptoms: Z97.8 Presence of other specified devices I10 severe chronic right knee pain and burning and numbness Technologist Comments: Hx of Rt knee/tib/fib/ankle hardware. Ankle screws removed a few years ago. Pt has severe pain in right knee which radiates down to ankle with burning and numbness. 25.7 mCi Tc99m MDP at 10:45 LT AC Question For Radiologist: Right knee (focus on tibial hardware) to ankle. Please include entire leg on delayed imaging Comparison: None. Findings: 3 phase bone scan performed with planar images of the bilateral lower stomach. There is no significant increase in bilateral flow or pool radiotracer activity. Intramedullary antonina photopenia seen within the right tibia. There is uptake seen in the bilateral hips, knees and ankles in a pattern compatible with sequela of degenerative changes. Correlation is made to knee radiographs of 11/18/2020. Impression: * Postoperative uptake and multifocal degenerative changes without evidence of abnormal radiotracer circulation or evidence of pathologic uptake. Electronically signed: Keya Foreman. Transcribed by: [email or web address], User Resident: Electronically Signed by: KEYA FOREMAN @ 11/27/2020 01:58 PM Normal [facility] Comment on above: Order Comment: Right knee (focus on tibial hardware) to ankle. Please include entire leg on delayed imaging PROTHROMBIN TIMEon INR Coag (PPP) [Relative time] 0.95 {INR} Normal 0.91-1.16 [facility] Comment on above: Result Comment: ACCC P RECOMMENDED INR FOR WARFARIN THERAPY ------- ------- CONDITION INR PROPHYLAXIS OF VENOUS THROMBOSIS 2-3 (HIGH-RISK SURGERY) TREATMENT OF VENOUS THROMBOSIS 2-3 TREATMENT OF PULMONARY EMBOLISM 2-3 PREVENTION OF SYSTEMIC EMBOLISM: 2-3 ACUTE MYOCARDIAL INFARCTION TISSUE HEART VALVES VALVULAR HEART DISEASE ATRIAL FIBRILLATION RECURRENT SYSTEMIC EMBOLISM MECHANICAL HEART VALVE 2.5-3.5 FROM: ORAL ANTICOAGULANTS. MECHANISM OF ACTION, CLINICAL EFFECTIVENESS, AND OPTIMAL THERAPEUTIC RANGE. CHEST 1995;108:231S-246S. Performed By: #### 0 007, [address]28[address] #### [facility] [address] [place] [address], [facility] PT Coag (PPP) [Time] 12.7 s Normal 12.3-14.8 [facility] Comment on above: Result Comment: ALL RESULTS MUST BE INTERPRETED WITH RESPECT TO BLOOD DRAWING ARTIFACT OR DILUTION ERROR OF ANTICOAGULANT AT THE TIME OF SAMPLING. Performed By: #### 0 510, 1968[address] #### [facility] [address] [place] [address], [facility] BASIC METABOLIC PANELon Calcium [Mass/Vol] 9.7 mg/dL Normal 8.6-10.3 [facility] Comment on above: Performed By: #### 6 1405 #### [facility] [address] [place] [address], [facility] Chloride [Moles/Vol] 105 mmol/L Normal 98-107 [facility] Comment on above: Performed By: #### 6 1405 #### [facility] [address] [place] [address], [facility] CO2 [Moles/Vol] 29 mmol/L Normal 21-31 [facility] Comment on above: Performed By: #### 6 1405 #### [facility] [address] [place] [address], [facility] Creatinine [Mass/Vol] 0.95 mg/dL Normal 0.60-1.20 [facility] Comment on above: Performed By: #### 6 1405 #### [facility] [address] [place] [address], [place] GFR/1.73 sq M.predicted among blacks MDRD (S/P/Bld) [Vol rate/Area] mL/min/{1.73_m2} Normal >60 [facility] Comment on above: Performed By: #### 6 1405 #### [facility] [address] [place] [address], [place] GFR/1.73 sq M.predicted among non-blacks MDRD (S/P/Bld) [Vol rate/Area] mL/min/{1.73_m2} Normal >60 [facility] Comment on above: Performed By: #### 6 1405 #### [facility] [address] [place] [address], [place] Glucose [Mass/Vol] 92 mg/dL Normal 70-100 [facility] Comment on above: Performed By: #### 6 1405 #### [facility] [address] [facility] Potassium [Moles/Vol] 3.8 mmol/L Normal 3.5-5.1 [facility] Comment on above: Performed By: #### 6 1405 #### [facility] [address] [facility] [place] [address], [facility] Sodium [Moles/Vol] 140 mmol/L Normal 136-145 [facility] Comment on above: Performed By: #### 6 1405 #### [facility] [address] [facility]. [address] Urea nitrogen [Mass/Vol] 10 mg/dL Normal 7-25 [facility] Comment on above: Performed By: #### 6 1405 #### [facility] [address] C REACTIVE PROTEINon 021 CRP [Mass/Vol] 1.1 mg/L Normal 0.0-7.0 [facility] Comment on above: Performed By: #### 6 1405 #### [facility] [address] [facility] [place] [address], [facility] CBC W/DIFFon 11-18-2020 ABS IMM GRANS 0.0 10*3/uL Normal 0.0-0.2 [facility] Comment on above: Performed By: #### 5 4696, [address]44[address] ####[facility] ABS NEUTROPHILS 2.9 10*3/uL Normal 1.6-7.6 [facility] Comment on above: Performed By: #### 5 3726, 28180 ####[facility] [place] [address], [facility] Basophils (Bld) [#/Vol] 0.0 10*3/uL Normal 0.0-0.2 [facility] Comment on above: Performed By: #### 5 6506, 65029 ####[facility] [facility] [address], [facility] Basophils/100 WBC (Bld) 0.6 % Normal 0.0-1.0 [facility] Comment on above: Performed By: #### 5 6505, 37882 ####[facility] [facility] [place] [address], [facility] Eosinophils (Bld) [#/Vol] 0.5 10*3/uL Normal 0.0-0.5 [facility] Comment on above: Performed By: #### 5 6505, [address] ####[place] [address] [facility] [place] [address], [facility] Eosinophils/100 WBC (Bld) 9.9 % High 0.0-6.0 [facility] Comment on above: Performed By: #### 5 6505, [address] ####[address] Erythrocyte distribution width (RBC) [Ratio] 12.3 % Normal 11.5-15.0 [facility] Comment on above: Performed By: #### 5 6505, [address] ####[place] [address] [facility].[address] Hematocrit (Bld) [Volume fraction] 40.8 % Normal 36.0-45.0 [facility] Comment on above: Performed By: #### 5 6505, 07029 ####[facility] [facility].[address] Hemoglobin (Bld) [Mass/Vol] 13.8 g/dL Normal 12.0-15.0 [facility] Comment on above: Performed By: #### 5 6505, [address] ####[address] IMMATURE GRANS 0.4 % Normal 0.0-1.0 [facility] Comment on above: Performed By: #### 5 6505, 68562 ####[facility] [facility].[address] Lymphocytes (Bld) [#/Vol] 1.0 10*3/uL Low 1.2-4.0 [facility] Comment on above: Performed By: #### 5 6505, 07647 ####[facility] [facility].[address] Lymphocytes/100 WBC (Bld) 20.2 % Normal 20.0-45.0 [facility] Comment on above: Performed By: #### 5 6505, [address]8315 ####[address] MCH (RBC) [Entitic mass] 31.7 pg Normal 27.0-33.0 [facility] Comment on above: Performed By: #### 5 6505, 16276 ####[address] MCHC (RBC) [Mass/Vol] 33.8 g/dL Normal 32.0-35.0 [facility] Comment on above: Performed By: #### 5 6505, 10703 ####[place] [address] [facility].[address] MCV (RBC) [Entitic vol] 93.8 fL Normal 82.0-98.0 [facility] Comment on above: Performed By: #### 5 6505, 09278 ####[facility] [place] [address].[address] Monocytes (Bld) [#/Vol] 0.4 10*3/uL Normal 0.1-1.0 [facility] Comment on above: Performed By: #### 5 6505, 37538 ####[facility] [place] [address] MONOS 8.5 % Normal 5.0-12.0 [facility] Comment on above: Performed By: #### 5 6506, 46055 ####[facility] [facility] [place] [address], [facility] Neutrophils/100 WBC (Bld) 60.4 % Normal 40.0-72.0 [facility] Comment on above: Performed By: #### 5 6505, 45613 ####[facility] [facility] [place] [address], [facility] Nucleated RBC/100 WBC (Bld) [Ratio] 0 % Normal 0-0 [facility] Comment on above: Performed By: #### 5 650, 74357 ####[facility] [facility] [place] [address], [facility] PLAT CNT 260 10*3/uL Normal 150-400 [facility] Comment on above: Performed By: #### 5 650, 32193 ####[facility] [facility] [place] [address], [facility] RBC (Bld) [#/Vol] 4.35 10*6/uL Normal 3.80-5.00 [facility] Comment on above: Performed By: #### 5 6506, 76897 ####[facility] [facility] [place] [address], [facility] WBC (Bld) [#/Vol] 4.85 10*3/uL Normal 4.00-10.60 [facility] Comment on above: Performed By: #### 5 6506, 71002 ####[address] [place] [address], [facility] KNEE RIGHT 3 Son 1 KNEE RIGHT 3 S [facility] Department of Radiology [address] [place] [address] ===== Patient Name: RHEA ALANIZ : 1960 Sex: F Age: Race: White Pt. Location: 84 Patient Status: O Ordered Date: 11/18/2020 10:05:00 AM Completed Date: 11/18/2020 10:24 AM Requesting Provider: JOANN KEENAN Attending Provider: JOANN KEENAN Report Copy To: Signs & Symptoms: M25.561 Pain in right knee I10 History: Kat Comments: Evaluate Exam: KNEE RIGHT 3 VWS ===== KNEE RIGHT 3 VWS 11/18/2020 10:24 AM CLINICAL INDICATIONS: M25.561 Pain in right knee I10 TECHNOLOGIST COMMENTS: right tib/fib pain patient states surgery 2015. increasing pain recently QUESTION FOR THE RADIOLOGIST: Evaluate PROTOCOL: AP,Lateral and Tangential views were obtained. COMPARISON: None FINDINGS: Tibial nail has been placed. Appears intact. Posttraumatic change to the distal tibial and fibular diaphysis is noted compatible with remote history of trauma. Medial condylar flattening is noted. Position the patella and the groove is satisfactory. There is no concerning effusion. No fracture or healing fracture is noted IMPRESSION: Chronic and post surgical changes as detailed above Electronically signed: Lissa Guerin. Transcribed by: [email or web address], User Resident: Electronically Signed by: LISSA GUERIN @ 11/18/2020 12:59 PM Normal [facility] Comment on above: Order Comment: Evalu ate SEDIMENTATION RATEon 021 SED RATE 4 mm/hr Normal 0-20 [facility] Comment on above: Performed By: #### 5 6506, 13221 ####[facility] [facility] [place], [place] [id number] [place] [address] TIBIA FIBULA RIGHTon 021 TIBIA FIBULA RIGHT [facility] Department of Radiology [address] [place] [id number] ===== Patient Name: RHEA ALANIZ : 1960 Sex: F Age: Race: White Pt. Location: Patient Status: O Ordered Date: 11/18/2020 10:05:00 AM Completed Date: 11/18/2020 10:24 AM Requesting Provider: JOANN KEENAN Attending Provider: JOANN KEENAN Report Copy To: Signs & Symptoms: M79.604 Pain in right leg I10 History: [place] Comments: Evaluate Exam: TIBIA FIBULA RIGHT ===== TIBIA FIBULA RIGHT 11/18/2020 10:24 AM CLINICAL INDICATIONS: M79.604 Pain in right leg I10 TECHNOLOGIST COMMENTS: right tib/fib pain patient states surgery 2015. increasing pain recently QUESTION FOR THE RADIOLOGIST: Evaluate PROTOCOL: AP(PA) and Lateral views were obtained. COMPARISON: None IMPRESSION: Tibial nail has been placed. Proximal locking screw is noted. Distal hardware has been removed. Lucency is noted. There is no fracture of the tibial nail. No acute osseous complication. Prior tibial inferior fractures have healed. Please correlate with the past medical and surgical history Electronically signed: Lissa Guerin. Transcribed by: [email or web address], User Resident: Electronically Signed by: LISSA GUERIN @ 11/18/2020 12:58 PM Normal [facility] Comment on above: Order Comment: Evalu ate VITAMIN D 25-HYDROXYon 11-18 VITAMIN D 25-OH 42.7 ng/mL Normal 30.0-80.0 [facility] Comment on above: Result Comment: >80. 0 Toxicity possible Performed By: #### 6 1405 #### [facility] [address] [place] [address], [facility] CBC W/DIFFon 09-30-2020 ABS IMM GRANS 0.0 10*3/uL Normal 0.0-0.2 [facility] Comment on above: Performed By: #### 5 0103 ####[facility] [place] [address], [facility] ABS NEUTROPHILS 2.5 10*3/uL Normal 1.6-7.6 [facility] Comment on above: Performed By: #### 5 0103 ####[facility] [place] [address], [facility] Basophils (Bld) [#/Vol] 0.0 10*3/uL Normal 0.0-0.2 [facility] Comment on above: Performed By: #### 5 0103 ####[facility] [place] [address], [facility] Basophils/100 WBC (Bld) 0.7 % Normal 0.0-1.0 [facility] Comment on above: Performed By: #### 5 0103 ####[facility] [place] [address], [facility] Eosinophils (Bld) [#/Vol] 0.3 10*3/uL Normal 0.0-0.5 [facility] Comment on above: Performed By: #### 5 0103 ####[facility] [place] [address], [facility] Eosinophils/100 WBC (Bld) 6.6 % High 0.0-6.0 [facility] Comment on above: Performed By: #### 5 0103 ####[facility] Erythrocyte distribution width (RBC) [Ratio] 12.5 % Normal 11.5-15.0 [facility] Comment on above: Performed By: #### 5 0103 ####[facility] Hematocrit (Bld) [Volume fraction] 40.2 % Normal 36.0-45.0 [facility] Comment on above: Performed By: #### 3 ####[facility] [place] [address] Hemoglobin (Bld) [Mass/Vol] 13.0 g/dL Normal 12.0-15.0 [facility] Comment on above: Performed By: #### 5 0103 ####[facility] IMMATURE GRANS 0.2 % Normal 0.0-1.0 [facility] Comment on above: Performed By: #### 5 3 ####[place] [id number] Lymphocytes (Bld) [#/Vol] 1.2 10*3/uL Normal 1.2-4.0 [facility] Comment on above: Performed By: #### 3 ####[facility] Lymphocytes/100 WBC (Bld) 27.7 % Normal 20.0-45.0 [facility] Comment on above: Performed By: #### 5 3 ####[facility] MCH (RBC) [Entitic mass] 31.0 pg Normal 27.0-33.0 [facility] Comment on above: Performed By: #### 5 0103 ####[facility] MCHC (RBC) [Mass/Vol] 32.3 g/dL Normal 32.0-35.0 [facility] Comment on above: Performed By: #### 5 0103 ####[facility] MCV (RBC) [Entitic vol] 95.7 fL Normal 82.0-98.0 [facility] Comment on above: Performed By: #### 5 0103 ####[facility] Monocytes (Bld) [#/Vol] 0.4 10*3/uL Normal 0.1-1.0 [facility] Comment on above: Performed By: #### 5 0103 ####[facility] MONOS 9.1 % Normal 5.0-12.0 [facility] Comment on above: Performed By: #### 5 3 ####[facility] Neutrophils/100 WBC (Bld) 55.7 % Normal 40.0-72.0 [facility] Comment on above: Performed By: #### 5 3 ####[facility] Nucleated RBC/100 WBC (Bld) [Ratio] 0 % Normal 0-0 [facility] Comment on above: Performed By: #### 5 102 ####[facility] [place] [address], [facility] PLAT CNT 261 10*3/uL Normal 150-400 [facility] Comment on above: Performed By: #### 5 0103 ####[facility] [place] [address], [facility] RBC (Bld) [#/Vol] 4.20 10*6/uL Normal 3.80-5.00 [facility] Comment on above: Performed By: #### 5 0103 ####[facility] [place] [address], [facility] WBC (Bld) [#/Vol] 4.40 10*3/uL Normal 4.00-10.60 [facility] Comment on above: Performed By: #### 5 0103 ####[facility] [place] [address], [facility] FERRITINon 09-30-2020 Ferritin [Mass/Vol] 63 ng/mL Normal 11-307 [facility] Comment on above: Performed By: #### 8 4046, 36373, 45984, 02050 ####[facility] [facility] FOLATE SERUMon 09-30-2020 SERUM FOLATE 15.05 ng/mL Normal 6.60-1000.00 [facility] Comment on above: Result Comment: Norm al range reflects World Health Organization International Standard /178 Performed By: #### 8 4046, 30289, 83190, 49922 ####[facility] HEMOGLOBIN A1Con 09-30-2020 Glucose [Moles/Vol] 114 mmol/L Normal [facility] Comment on above: Performed By: #### 6 1405 #### [facility] [address] [place] [address], [facility] HbA1c (Bld) [Mass fraction] 5.6 % Normal 4.0-6.0 [facility] Comment on above: Performed By: #### 6 1405 #### [facility] [address] TIBC- INCLUDES IRONon 2020 FE SATURATION 20 % Normal 20-50 [facility] Comment on above: Performed By: #### 8 4046, 04979, 21930, 89917 ####[facility] [facility].[address] Iron [Mass/Vol] 64 ug/dL Normal 50-212 [facility] Comment on above: Performed By: #### 8 4046, 92099, 82148, 45256 ####[facility] [facility].[address] TIBC 322 mcg/dL Normal 250-450 [facility] Comment on above: Performed By: #### 8 4046, 37546, 88040, 80841 ####[facility] [facility].[address] UIBC 258 mcg/dL Normal 155-355 [facility] Comment on above: Performed By: #### 8 4046, 47055, 22958, 96484 ####[facility] [facility].[address] VITAMIN B12on 09-30-2020 Cobalamin (Vitamin B12) [Mass/Vol] 202 pg/mL Normal 180-914 [facility] Comment on above: Result Comment: REFE RENCE RANGES: 180-914 pg/mL Normal 145-179 pg/mL Indeterminate <145 pg/mL Deficient Performed By: #### 8 4046, 33270, 31229, 41600 ####[facility] [facility].[address] VITAMIN B6 (PYRIDOXINE) 8011 1on 09-30-2020 VITAMIN B6 73.0 nmol/L Normal 20.0-125.0 [facility] Comment on above: Result Comment: INTE RPRETIVE INFORMATION: Vitamin B6 (Pyridoxal 5-Phosphate) Pyridoxal 5'-phosphate measured in a specimen collected following an 8-hour or overnight fast accurately indicates vitamin B6 nutritional status. Non-fasting specimen concentration reflects recent vitamin intake. This test was developed and its performance characteristics determined by [employer]. It has not been cleared or approved by the [place] Food and Drug Administration. This test was performed in a CLIA certified laboratory and is intended for clinical purposes. Performed By: [email or web address] [address] [place] [id number] Corporate Compliance Director: Odalis Adame MD CTA ABDOMEN AND PELVISon CTA ABDOMEN AND PELVIS [facility] Department of Radiology [address] [place] [address] ===== Patient Name: RHEA ALANIZ : 1960 Sex: F Age: Race: White Pt. 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 H/O diverticulits. QUESTION FOR THE RADIOLOGIST: also for diverticulitis from a different physician PROTOCOL: Axial CT angiography images were obtained with IV contrast. CONTRAST: Contrast: OMNIPAQUE 350 (LOCM), 100 milliliter, Intravenous TECHNIQUE: Multidetector CT angiography axial slices of the abdomen and pelvis were obtained with IV contrast. Multiplanar reformats, MIP, and volume rendered 3-D images were generated on a separate workstation and reviewed to further define anatomy and possible pathology. Appropriate CT dose lowering techniques were utilized. COMPARISON: CT abdomen November 04, 2019. FINDINGS: The lung bases appear unremarkable. The origins of the celiac axis, SMA and DELIO appear unremarkable. The renal arteries appear unremarkable bilaterally. No aortic aneurysm, dissection or significant calcification. Normal iliac runoff bilaterally. Once again an aneurysm is noted in the splenic artery today measuring 12 x 11 mm on image 134 compared to 11 x 11 mm on image 110 previously. A cyst is again present in segment 6 of the liver, unchanged from the prior study. The spleen, gallbladder, pancreas and adrenals appear unremarkable. The kidneys concentrate contrast satisfactorily with no focal lesion. The stomach, small bowel and appendix appear unremarkable. Uncomplicated diverticula are present in the sigmoid and descending portions of the colon. The bladder, uterus and adnexa appear unremarkable. The study viewed at bone window appears unremarkable. No free air or free fluid. No retroperitoneal adenopathy or hematoma. IMPRESSION: * Splenic artery aneurysm demonstrated. Difference in size from prior study presumably within measuremental error. * Hepatic cyst unchanged. * Uncomplicated colonic diverticula. All CT scans at this facility use dose modulation, iterative reconstruction, and/or weight based dosing when appropriate to reduce radiation dose to as low as reasonably achievable Electronically signed: Bienvenido Chapman. Transcribed by: [email or web address], User Resident: Electronically Signed by: BIENVENIDO CHAPMAN @ 09/30/2020 10:49 AM Normal [facility] Comment on above: Order Comment: also for diverticulitis from a different physician Basic Metabolic Profon 08-06 (cont.) Normal [facility] Comment on above: Result Comment: Aver age GFR for 50-59 years old: 93 mL/min/1.73sq mChronic Kidney Disease: <60 mL/min/1.73sq mKidney failure: <15 mL/min/1.73sq meGFR calculated using average adult body mass. Additional eGFR calculator available at:http://[email or web address].Addepar/multiple_crcl_[email or web address] [address] Performed By: #### C DP, BMP, LIVP, EDTOX ####[address] [address] Anion gap 14 mmol/L Normal 9-17 [facility] Comment on above: Performed By: #### C DP, BMP, LIVP, EDTOX ####[address] [address] Calcium 9.0 mg/dL Normal 8.6-10.4 [facility] Comment on above: Performed By: #### C DP, BMP, LIVP, EDTOX ####[address] [address] Chloride 101 mmol/L Normal 98-107 [facility] Comment on above: Performed By: #### C DP, BMP, LIVP, EDTOX ####[address] [address] CO2 23 mmol/L Normal 20-31 [facility] Comment on above: Performed By: #### C DP, BMP, LIVP, EDTOX ####[address] [address] Creatinine 0.89 mg/dL Normal 0.50-0.90 [facility] Comment on above: Performed By: #### C DP, BMP, LIVP, EDTOX ####[address] [address] eGFR (non-black) mL/min/{1.73_m2} Normal >60 [facility] Comment on above: Performed By: #### C DP, BMP, LIVP, EDTOX ####[address] [address] Glucose mass conc 178 mg/dL High 70-99 [facility] Comment on above: Performed By: #### C DP, BMP, LIVP, EDTOX ####[address] [address] Potassium molar conc 3.8 mmol/L Normal 3.7-5.3 [facility] Comment on above: Performed By: #### C DP, BMP, LIVP, EDTOX ####[address] [address] Sodium 138 mmol/L Normal 135-144 [facility] Comment on above: Performed By: #### C DP, BMP, LIVP, EDTOX ####[address] [address] Urea nitrogen 16 mg/dL Normal 6-20 [facility] Comment on above: Performed By: #### C DP, BMP, LIVP, EDTOX ####[address] [address] BUN/CRE Ratio NOT REPORTED Normal -20 [facility] Comment on above: Performed By: #### C DP, BMP, LIVP, EDTOX ####[address] [address] Staging: NOT REPORTED Normal [facility] Comment on above: Performed By: #### C DP, BMP, LIVP, EDTOX ####[address] [address] CBC with Diffon 08-06-2017 Abs. Basophil <0.03 Normal 0.00-0.20 [facility] Comment on above: Performed By: #### C DP, BMP, LIVP, EDTOX ####[place] [address] [place] [address] Abs.Neutrophil (Seg) 8.37 k/uL High 1.50-8.10 [facility] Comment on above: Performed By: #### C DP, BMP, LIVP, EDTOX ####[address] [address] Basophils/100 WBC Auto (Bld) 0 % Normal 0-2 [facility] Comment on above: Performed By: #### C DP, BMP, LIVP, EDTOX ####[address] [address] Eosinophils 10*3/uL Normal 0.00-0.44 [facility] Comment on above: Performed By: #### C DP, BMP, LIVP, EDTOX ####[address] [address] Eosinophils/100 leukocytes 0 % Low 1-4 [facility] Comment on above: Performed By: #### C DP, BMP, LIVP, EDTOX ####[address] [address] Erythrocyte distribution width Auto Ratio (RBC) 12.5 % Normal 11.8-14.4 [facility] Comment on above: Performed By: #### C DP, BMP, LIVP, EDTOX ####[address] [address] Erythrocytes (RBC) 0.0 per 100 WBC Normal 0.0 [facility] Comment on above: Performed By: #### C DP, BMP, LIVP, EDTOX ####[address] [address] Erythrocytes (RBC) 4.37 10*6/uL Normal 3.95-5.11 [facility] Comment on above: Performed By: #### C DP, BMP, LIVP, EDTOX ####[address] [address] Granulocytes/100 WBC (Bld) 0.04 k/uL Normal 0.00-0.30 [facility] Comment on above: Result Comment: [address] [address] Performed By: #### C DP, BMP, LIVP, EDTOX ####[address] [address] Hematocrit (HCT) 41.3 % Normal 36.3-47.1 [facility] Comment on above: Performed By: #### C DP, BMP, LIVP, EDTOX ####[address] [address] Hemoglobin mass conc (Bld) 13.4 g/dL Normal 11.9-15.1 [facility] Comment on above: Performed By: #### C DP, BMP, LIVP, EDTOX ####[address] [address] Immature granulocytes #/vol (Bld) 0 % Normal 0 [facility] Comment on above: Performed By: #### C DP, BMP, LIVP, EDTOX ####[address] [address] Lymphocytes 0.81 10*3/uL Low 1.10-3.70 [facility] Comment on above: Performed By: #### C DP, BMP, LIVP, EDTOX ####[address] [address] Lymphocytes/100 leukocytes 8 % Low 24-43 [facility] Comment on above: Performed By: #### C DP, BMP, LIVP, EDTOX ####[address] [address] MCH 30.7 pg Normal 25.2-33.5 [facility] Comment on above: Performed By: #### C DP, BMP, LIVP, EDTOX ####[address] [address] MCHC mass conc (RBC) 32.4 g/dL Normal 28.4-34.8 [facility] Comment on above: Performed By: #### C DP, BMP, LIVP, EDTOX ####[address] [address] MCV 94.5 fL Normal 82.6-102.9 [facility] Comment on above: Performed By: #### C DP, BMP, LIVP, EDTOX ####[address] [address] Monocytes 0.70 10*3/uL Normal 0.10-1.20 [facility] Comment on above: Performed By: #### C DP, BMP, LIVP, EDTOX ####[address] [address] Monocytes/100 leukocytes 7 % Normal 3-12 [facility] Comment on above: Performed By: #### C DP, BMP, LIVP, EDTOX ####[address] [address] Neutrophil (Seg) 85 % High 36-65 [facility] Comment on above: Performed By: #### C DP, BMP, LIVP, EDTOX ####[address] [address] Platelet mean volume (PMV) 9.5 fL Normal 8.1-13.5 [facility] Comment on above: Performed By: #### C DP, BMP, LIVP, EDTOX ####[address] [place] [address] Platelets 253 10*3/uL Normal 138-453 [facility] Comment on above: Performed By: #### C DP, BMP, LIVP, EDTOX ####[address] [address] WBC (Leukocytes) 10.0 10*3/uL Normal 3.5-11.3 [facility] Comment on above: Performed By: #### C DP, BMP, LIVP, EDTOX ####[address] [address] Auto Diff Performed NOT REPORTED Normal [facility] Comment on above: Performed By: #### C DP, BMP, LIVP, EDTOX ####[address] [address] Erythrocyte morphology NOT REPORTED Normal [facility] Comment on above: Performed By: #### C DP, BMP, LIVP, EDTOX ####[address] [address] Platelets NOT REPORTED Normal [facility] Comment on above: Performed By: #### C DP, BMP, LIVP, EDTOX ####[address] [address] WBC Morphology NOT REPORTED Normal [facility] Comment on above: Performed By: #### C DP, BMP, LIVP, EDTOX ####[address] [address] Creatine Kinaseon 08-06-2017 Creatine kinase (CK) 117 U/L Normal 26-192 [facility] Comment on above: Result Comment: [address] [address] Performed By: #### T ROPI, CK ####[address] [address] Discharge Summaryon 08-07-19 18 HIM IP Note OR Deputy Head Normal [facility] ED Noteon 08-06-2017 HIM IP Note OR Deputy Head Normal [facility] History and Physicalon 08-06 HIM IP Note OR Deputy Head Normal [facility] Liver Profileon 08-06-2017 Alanine aminotransferase (ALT) 14 U/L Normal 5-33 [facility] Comment on above: Performed By: #### C DP, BMP, LIVP, EDTOX ####[facility] [id number] [place] [place] [id number] Albumin 4.6 g/dL Normal 3.5-5.2 [facility] Comment on above: Performed By: #### C DP, BMP, LIVP, EDTOX ####[address] [address] Albumin/Globulin Ratio 1.8 {ratio} Normal 1.0-2.5 [facility] Comment on above: Result Comment: [id number] [place] [address] Performed By: #### C DP, BMP, LIVP, EDTOX ####[facility] [address] [place] [address] Alkaline Phos 62 U/L Normal 35-104 [facility] Comment on above: Performed By: #### C DP, BMP, LIVP, EDTOX ####[facility] [address] [place] [address] Aspartate aminotransferase (AST) 14 U/L Normal <32 [facility] Comment on above: Performed By: #### C DP, BMP, LIVP, EDTOX ####[facility] [address] [place] [address] Bilirubin (direct) 0.12 mg/dL Normal <0.31 [facility] Comment on above: Performed By: #### C DP, BMP, LIVP, EDTOX ####[facility] [address] [place] [address] Bilirubin Ql (U) 0.37 mg/dL Normal 0.3-1.2 [facility] Comment on above: Performed By: #### C DP, BMP, LIVP, EDTOX ####[facility] [address] [place] [address] Bilirubin, Indirect 0.25 mg/dL Normal 0.00-1.00 [facility] Comment on above: Performed By: #### C DP, BMP, LIVP, EDTOX ####[facility] [address] [place] [address] Protein 7.1 g/dL Normal 6.4-8.3 [facility] Comment on above: Performed By: #### C DP, BMP, LIVP, EDTOX ####[facility] [address] [place] [address] Globulin NOT REPORTED Normal 1.5-3.8 [facility] Comment on above: Performed By: #### C DP, BMP, LIVP, EDTOX ####[facility] [address] [place] [address] Plan of Careon 08-06-2017 HIM IP Note OR Deputy Head Normal [facility] HIM IP Note OR Deputy Head Normal [facility] Progress Noteon 08-06-2017 HIM IP Note OR Deputy Head Normal [facility] HIM IP Note OR Deputy Head Normal [facility] Tox Scr, Bld, EDon 8 Acetaminophen mass conc <5 Low 10-30 [facility] Comment on above: Performed By: #### C DP, BMP, LIVP, EDTOX ####[facility] [address] [place] [address] Salicylate <1 Low 3-10 [facility] Comment on above: Performed By: #### C DP, BMP, LIVP, EDTOX ####[address] [address] Ethanol mg/dL Normal <10 [facility] Comment on above: Performed By: #### C DP, BMP, LIVP, EDTOX ####[address] [address] Ethanol percent <0.010 Normal [facility] Comment on above: Performed By: #### C DP, BMP, LIVP, EDTOX ####[address] [address] Toxic Tricyclic Sc,Bl Negative Normal NEG [facility] Comment on above: Result Comment: [facility] [address] [place] [address] Performed By: #### C DP, BMP, LIVP, EDTOX ####[address] [address] Troponinon 08-06-2017 Troponin I.cardiac mass conc Normal [facility] Comment on above: Result Comment: Refe rence Range: <0.03 Within reference range. 0.03-0.09 Possible myocardial damage.Repeat at appropriate intervals to rule out chronic elevation. >= 0.10 Indicative of myocardial damage.Patients with high levels of Biotin oral intake (i.e >5mg/day) may have falsely decreased Troponin T levels. Samples collected within 8 hours of biotin intake may require additional information for diagnosis.[facility] [address] [place] [address] Performed By: #### T CYNTHIA CK ####[address] [address] Troponin T.cardiac mass conc ug/L Normal <0.03 [facility] Comment on above: Result Comment: Trop onin T results cannot be compared to Troponin-I results. Performed By: #### T CYNTHIA, CK ####[address] [place] [address] Troponin I.cardiac mass conc Normal [facility] Comment on above: Result Comment: Refe rence Range: <0.03 Within reference range. 0.03-0.09 Possible myocardial damage.Repeat at appropriate intervals to rule out chronic elevation. >= 0.10 Indicative of myocardial damage.Patients with high levels of Biotin oral intake (i.e >5mg/day) may have falsely decreased Troponin T levels. Samples collected within 8 hours of biotin intake may require additional information for diagnosis.[facility] [address] [place] [address] Performed By: #### T ROPI ####[facility] [place] [address] Troponin T.cardiac mass conc ug/L Normal <0.03 [facility] Comment on above: Result Comment: Trop onin T results cannot be compared to Troponin-I results. Performed By: #### T ROPI ####[facility] [place] [address] XR CHEST (2 VW)on 08-06-2017 XR CHEST (2 VW) EXAMINATION:TWO VIEW S OF THE CHEST08/05/2017 10:33 pmCOMPARISON:None.HISTO RY:ORDERING SYSTEM PROVIDED HISTORY: chest painTECHNOLOGIST PROVIDED HISTORY:Reason for exam:->chest painFINDINGS:Cardiothor acic ratio is normal. Trachea is midline. Evidence of a prior onanterior surgical fusion of the cervical spine. There is no pulmonaryconsolidation, edema, effusion or pneumothorax. Costophrenic angles areclear. Posttraumatic or postsurgical changes of the left distal clavicle.IMPRESSION: No acute cardiopulmonary disease.Interpreted by:KANIKA Stinsonigned by:Marybeth Flores MD08/05/17inal result Normal [facility] ED Provider Noteon 8 HIM IP Note OR Deputy Head Normal [facility] Encounters Encounter Date Encounter Type Care Provider Facility Start: 05-31-2023 End: 05-31-2023 ambulatory RONALD N NUCOS [facility] Start: 05-12-2023 End: 05-12-2023 [facility] Start: 04-28-2023 End: 04-28-2023 [facility] Start: 04-28-2023 End: 04-28-2023 [facility] Start: 04-14-2023 ambulatory RONALD NUCKLOS [facility] Start: 04-14-2023 End: 04-14-2023 ambulatory RONALD N [facility] Start: 02-06-2023 ambulatory [id number] H CHANDRA [facility] Start: 09-03-2022 End: 09-03-2022 ambulatory [facility] Start: 09-02-2022 ambulatory ALEXSANDRA JOHNSTON [facility] Start: 08-24-2022 End: 08-24-2022 ambulatory [facility] Start: 07-29-2022 End: 07-29-[address] RAFAEL OZUNA . Facility: Start: 07-28-2022 End: 07-28-2022 ambulatory Judith Pinzon Other [facility] Other Start: 07-28-2022 Patient encounter procedure Judith Pinzon [facility] Start: 06-27-2021 End: 06-28-2021 ambulatory RONALD NUCKLOS Facility:[facility] Start: 06-09-2021 End: 06-09-2021 Emergency department patient visit RONALD NUCLAURAOS Facility:[facility] Start: 12-02-2020 End: 12-03-2020 ambulatory RONALD NUCKLOS Facility:[facility] Start: 11-26-2020 End: 11-27-2020 ambulatory RONALD NUCKLOS Facility:[facility] Start: 08-05-2017 End: 08-06-2017 Ambulatory ELINA Weir [facility] Procedures Date Procedure Procedure Detail Performing Clinician Start: 12-02-2020 ANESTH KNEE AREA SURGERY RONALD GARCIALAURAOS Start: 12-02-2020 REMOVAL OF SUPPORT IMPLANT JOANN KEENAN Start: 08-06-2017 TROPONIN ELINA PARIS ICAshwin Start: 08-06-2017 DISCHARGE PATIENT ELINA DEL ANGEL Start: 08-06-2017 IP CONSULT TO SOCIAL WORK ELINA DEL ANGEL Start: 08-06-2017 CK ELINA PARIS ICK Start: 08-06-2017 TROPONIN ELINA PARIS ICAshwin Start: 08-06-2017 DIET GENERAL ELINA FERNANDES Start: 08-06-2017 IP CONSULT TO SOCIAL WORK ELINA DEL ANGEL Start: 08-06-2017 NURSING COMMUNICATION D AVIMirela DEL ANGEL Start: 08-06-2017 TELEMETRY MONITORING DA VIMirela MER Start: 08-06-2017 URINE DRUG SCREEN ELINA DEL ANGEL Start: 08-06-2017 TROPONIN ELINA PARIS ICK Start: 08-06-2017 TROPONIN ELINA PARIS ICAshwin Start: 08-06-2017 EKG 12-LEAD ELINA PARIS ICK Start: 08-06-2017 FULL CODE ELINA FERNANDES Start: 08-06-2017 NOTIFY PHYSICIAN (SPECIFY) ELINA DEL ANGEL Start: 08-06-2017 REASON FOR NO MECHAN ICAL VTE PROPHYLAXIS ELINA DEL ANGEL Start: 08-06-2017 VITAL SIGNS ELINA PARIS ICK Start: 08-06-2017 PATIENT STATUS (FROM ED OR OR/PROCEDURAL) ELINA DEL ANGEL Start: 08-06-2017 Radiologic exam chest 2 views ELINA DEL ANGEL Start: 08-06-2017 Basic metabolic pane l calcium total ELINA DEL ANGEL Start: 08-06-2017 Blood count complete auto&auto difrntl wbc ELINA DEL ANGEL Start: 08-06-2017 Hepatic function panel ELINA DEL ANGEL Start: 08-06-2017 TOX SCR, BLD, ED ELINA DEL ANGEL Start: 08-05-2017 EKG 12-LEAD ELINA RAINA ICK Start: 08-05-2017 POCT TROPONIN ELINA FLETCHER Payers Date Payer Category Payer Unknown [id number] [id number] [id number] 1960 Unknown [id number] 2.16.8 [id number] 1960 Unknown [id number] 2.16.8 [id number] 1960 Unknown [id number] 2.16.8 [id number] 1960 Unknown [id number] 2.16.84 [id number] 1959 Medicaid [id number] 1959 Private Health Insurance [id number] Unknown [id number] Social History Date Type Detail Facility Sex Assigned At [facility] Other Progress note 04-28-2023 Note Date & Type Note Facility 04-28-2023 Note Patient pick-up medi cation and she is all good. Elva Cyr CPhT [facility] 05/02/23 11:59 AM [facility] Progress note 04-28-2023 Note Date & Type Note Facility 04-28-2023 Note Specialty Pharmacy N [place]: [place] Supervising Physician & Clinic:?? Dr. Samano, Internal Medicine Rhea Alaniz is a 62 y.o. year old female patient with PMH of: HTN, GERD, HLD, depression, PharmD consulted for evaluation of Evolocumab for treatment of hyperlipidemia (Diagnosis Code: E78.5). ?? Prescribed Dosin mg subcutaneously every 14 days Previous medications tried: atorvastatin 40 mg (2018-current) No pertinent drug interactions were noted. No renal or hepatic dose adjustments necessary. Vitals: Ht Readings from Last 1 Encounters: 04/28/23 1.664 m (5' 5.5 ) Wt Readings from Last 1 Encounters: 04/28/23 68.5 kg (151 lb) BMI Readings from Last 1 Encounters: 04/28/23 24.75 kg/m??? BP Readings from Last 1 Encounters: 04/28/23 133/79 Pulse Readings from Last 1 Encounters: 04/28/23 82 Pertinent labs:?? CMP: Lab Results Component Value Date GLUCOSE 94 04/14/2023 CALCIUM 9.8 04/14/2023 NA 140 04/14/2023 K 4.1 04/14/2023 CO2 28 04/14/2023 CL 103 04/14/2023 BUN 20 04/14/2023 CREATININE 0.81 04/14/2023 CBC: Lab Results Component Value Date WBC 6.00 04/14/2023 HGB 14.2 04/14/2023 HCT 43.2 04/14/2023 MCV 94.9 04/14/2023 PLT 310 04/14/2023 FLP: Lab Results Component Value Date CHOL 346 (H) 04/14/2023 HDL 84 04/14/2023 LDLCALC 233 (H) 04/14/2023 TRIG 144 04/14/2023 Evaluation: Based on patient's LDLc above goal (<100 mg/dL) while taking a high intensity statin, patient is an appropriate candidate for this medication.? Follow-up: Contacted patient for welcome call and left voicemail. Submitted PA and was instantly approved. Copay for medication $0. Will continue to contact patient for follow up. ? Jael Vasquez PharmD [facility] [phone] [facility] Progress note 04-28-2023 Note Date & Type Note Facility 04-28-2023 Note Patient called back and will pick-up medication on Monday. She requests help with first injection. Odessa Bond PharmD Outpatient Clinical Pharmacist [facility] [phone] 04/28/23 3:19 PM [facility] Progress note 04-28-2023 Note Date & Type Note Facility 04-28-2023 Note PharmD Consult - Med ication Access/Coverage Referring Provider: Dr. Samano PharmD saw patient during PCP visit today for assistance with lipid management. PMH includes depression, GERD, and hyperlipidemia. Patient does have insurance. Insurance type: Medicare + Medicaid Current lipid lowering medications: atorvastatin 40mg once daily Pertinent labs: Lab Results Component Value Date CHOL 346 (H) 04/14/2023 Lab Results Component Value Date HDL 84 04/14/2023 Lab Results Component Value Date LDLCALC 233 (H) 04/14/2023 Lab Results Component Value Date TRIG 144 04/14/2023 Patient's LDLC above goal (<100 mg/dL). Currently on atorvastatin only. Patient endorses adherence to medication. Indicated for PCSK9i to achieve LDLC goal. Discussed this with patient and she is amenable to starting therapy. Order placed for [facility] to [facility]. Yessenia Roque PharmD, BCACP [facility] 04/28/23 [facility] Progress note 04-28-2023 Note Date & Type Note Facility 04-28-2023 Note Subjective Patient ID: Rhea Alaniz is a 62 y.o. female who presents for Follow-up (Patient here for Lab Review, Cough x a couple days, Reviewed 04/28/2023 -EK ). HPI Patient here with mutiple complaints . She is here for follow up of left breast pain and some chest pain for quite awhile. She describes the chest pain sometimes as being sharp and other times as pressure which is with her most of the time. Her mammogram still needs to be rescheduled.Patient also complains of a cough that she has had for a couple of days. She has no fever.She is here for follow up of hyperlipidemia.She is on atorvastatin 40mg daily.In review of her labs with patient, her hyperlipidemia is severe. Total cholesterol is 346 and LDL is 233.She is here for follow up of splenic artery aneurysm seen on previous CT Scan. Review of Systems Constitutional: Negative for activity change, appetite change, chills, diaphoresis, fatigue and fever. Left breast pain.Left breast examined and no lump is palpable. HENT: Negative for congestion, sore throat and trouble swallowing. Respiratory: Positive for cough. Negative for shortness of breath. Cardiovascular: Positive for chest pain. Gastrointestinal: Negative for abdominal distention. Some discomfort at the LUQ Genitourinary: Negative for difficulty urinating, dysuria and hematuria. Musculoskeletal: Negative for back pain. Neurological: Negative for dizziness, weakness, numbness and headaches. Psychiatric/Behavioral: Negative for agitation and behavioral problems. Objective Physical Exam Constitutional: Appearance: Normal appearance. She is normal weight. HENT: Head: Normocephalic. Nose: No rhinorrhea. Mouth/Throat: Mouth: Mucous membranes are moist. Cardiovascular: Rate and Rhythm: Normal rate and regular rhythm. Heart sounds: Normal heart sounds. Pulmonary: Effort: Pulmonary effort is normal. Breath sounds: Normal breath sounds. Chest: Comments: Minimal left breast pain . No lumps palpablein left breast. Abdominal: General: There is no distension. Palpations: Abdomen is soft. Tenderness: There is no abdominal tenderness. There is no guarding or rebound. Musculoskeletal: General: Normal range of motion. Cervical back: Normal range of motion and neck supple. Skin: General: Skin is warm. Neurological: General: No focal deficit present. Mental Status: She is alert and oriented to person, place, and time. Cranial Nerves: No cranial nerve deficit. Sensory: No sensory deficit. Motor: No weakness. Gait: Gait normal. Psychiatric: Mood and Affect: Mood normal. Behavior: Behavior normal. Assessment/Plan Diagnoses and all orders for this visit: Chest pain, unspecified type Comments: EKG was NSR.will ordera cardiology consult for evaluation since cholesterol is so high. See in 2 weeks for follow up. Breast pain Comments: no lump palpated in the left breast Orders: - CT abdomen pelvis w and wo IV contrast; Future Pre-diabetes Comments: no symtoms of diabetes Cough, unspecified type Comments: check CXR Orders: - XR chest 2 views; Future - POC Sars-CoV-2 Antigen Binax Now (use in Peds) Hyperlipidemia, unspecified hyperlipidemia type Comments: Severe LDL of 233.Evolocumab (Repatha Sureclick) 140mg/ml Pharmacist spoke to patient Orders: - Ambulatory referral to Pharmacist-led Chronic Disease Management Program Splenic artery aneurysm (CMS/HCC) Comments: Follow up of splenic artery aneurysm with ordering CT of abdomen for follow up. Diagnosis Plan 1. Chest pain, unspecified type 2. Breast pain CT abdomen pelvis w and wo IV contrast 3. Pre-diabetes 4. Cough, unspecified type XR chest 2 views POC Sars-CoV-2 Antigen Binax Now (use in Peds) 5. Hyperlipidemia, unspecified hyperlipidemia type Ambulatory referral to Pharmacist-led Chronic Disease Management Program 6. Splenic artery aneurysm (CMS/HCC) Follow up of splenic artery aneurysm Orders Placed This Encounter Procedures CT abdomen pelvis w and wo IV contrast Standing Status: Future Standing Expiration Date: 04/28/2024 Scheduling Instructions: The phone number to contact [facility] is Once you have been placed into the phone tree, it will prompt with the following options. 1 - CT scheduling 2 - MRI scheduling 3 - Ultrasound scheduling 4 - X-ray, Nuclear Medicine, Mammograms scheduling 5 - Reports/Image requests or general questions Order Specific Question: What is the patient's sedation requirement? Answer: No Sedation Order Specific Question: Release to Patient Answer: Immediately XR chest 2 views Standing Status: Future Number of Occurrences: 1 Standing Expiration Date: 04/28/2024 Scheduling Instructions: The phone number to contact [facility] is Once you have been placed into the phone tree, it will prompt with the following options. 1 - CT scheduling 2 - MRI schedul (more content not included)... [facility] Progress note 04-14-2023 Note Date & Type Note Facility 04-14-2023 Note Subjective Patient ID: Rhea Alaniz is a 62 y.o. female who presents for Follow-up (Patient here for mammogram review, lump in groin, kidney labs, Reviewed 04/14/2023 -EK ). HPI Patent here for follow up and for further evaluation of an abnormal mammogram done 03/21/2023 in [place].Patient also complains of a lump that she has had in the lower abdomen for a while. She is here for follow up of a problem with her spleen, chronic left shoulder pain and fatigue. She has a problem with a tremor of her head and has a history of depression. She has no chest pain but she has some shortness of breath at times. In review ,on the CT of the abdomen pelvis done 02/15/2022,there was a 1.5cm proximal splenic artery saccular aneurysm seen.She says she has some discomfort in the LUQ at times. Review of Systems Constitutional: Positive for fatigue. Negative for activity change and fever. HENT: Negative for congestion, sore throat and trouble swallowing. Eyes: Negative for visual disturbance. Respiratory: Negative for shortness of breath. Cardiovascular: Negative for chest pain. Gastrointestinal: Negative for abdominal pain and blood in stool. Genitourinary: Negative for difficulty urinating, dysuria and hematuria. Neurological: Positive for tremors. Negative for dizziness and light-headedness. Tremor of the head Psychiatric/Behavioral: Negative for agitation and behavioral problems. Objective Physical Exam Constitutional: Appearance: Normal appearance. HENT: Head: Normocephalic. Right Ear: Tympanic membrane and ear canal normal. Left Ear: Tympanic membrane and ear canal normal. Nose: No congestion. Mouth/Throat: Mouth: Mucous membranes are moist. Eyes: General: Right eye: No discharge. Left eye: No discharge. Cardiovascular: Rate and Rhythm: Normal rate and regular rhythm. Heart sounds: Normal heart sounds. Pulmonary: Effort: Pulmonary effort is normal. Breath sounds: Normal breath sounds. Chest: Breasts: Right: Normal. Left: Normal. Comments: No lump palpated Abdominal: General: There is no distension. Palpations: Abdomen is soft. Tenderness: There is no abdominal tenderness. There is no guarding or rebound. Comments: Small non tender lump under the skin of the lower mid abdomen Musculoskeletal: General: Normal range of motion. Cervical back: Normal range of motion and neck supple. Skin: General: Skin is warm. Neurological: General: No focal deficit present. Mental Status: She is alert and oriented to person, place, and time. Cranial Nerves: No cranial nerve deficit. Motor: No weakness. Gait: Gait normal. Psychiatric: Mood and Affect: Mood normal. Behavior: Behavior normal. Thought Content: Thought content normal. Judgment: Judgment normal. Assessment/Plan Diagnoses and all orders for this visit: Abnormality of left breast on screening mammogram Comments: Ordered spot compression views of the left breast because of a nodular asymmetry seen posteriorly within the superior left breast Orders: - Left breast US complete; Future Hyperlipidemia, unspecified hyperlipidemia type Comments: on lipitor Orders: - atorvastatin (Lipitor) 40 mg tablet; Take 1 tablet (40 mg) by mouth in the morning. - Lipid panel; Future Tremor Comments: tremor of the head Orders: - Comprehensive metabolic panel; Future Dyspnea, unspecified type Comments: ordereda CXR Orders: - Comprehensive metabolic panel; Future - ECG 12 lead unit performed; Future Chronic left shoulder pain Comments: chronic of left shoulder Orders: - Comprehensive metabolic panel; Future Abdominal mass of other site Comments: Once we have the kidney function back , will follow up with a CT Scan of the abdomen Anxiety Comments: hasa history and desires to see a psychiatrist,so ordered it Orders: - Comprehensive metabolic panel; Future - T4, free; Future - Ambulatory referral to Psychiatry; Future Fatigue, unspecified type Comments: will cheka CBC with diff and CMP Orders: - Comprehensive metabolic panel; Future - CBC and differential; Future - T3, free; Future Depression, unspecified depression type Comments: Ordered a psychiatric consult Orders: - TSH; Future - T4, free; Future - Ambulatory referral to Psychiatry; Future Gastroesophageal reflux disease, unspecified whether esophagitis present Comments: stable. Continue the PPI Orders: - omeprazole (PriLOSEC) [address] capsule; Take 1 capsule (20 mg) by mouth in the morning and at bedtime. Splenic artery aneurysm (CMS/HCC) Comments: Will follow up with a CT Scan once we know that kidney function is normal Diagnosis Plan 1. Hyperlipidemia, unspecified hyperlipidemia type 2. Abnormality of left breast on screening mammogram 3. Tremor 4. Dyspnea, unspecified type 5. Shortness of breath 6. Chronic left shoulder pain 7. Abdominal mass of other site 8 (more content not included)... [facility] Progress note 09-03-2022 Note Date & Type Note Facility 09-03-2022 Note ------ Attestation signed by Calos Beyer MD at 09/03/2022 3:47 PM I personally saw and examined the patient on the same date of service as resident/fellow Leo Peters. I discussed the findings and therapeutic plan with the resident/fellow Leo Peters. I agree with the documentation, except for any edits/updates below. Teaching Physician's Revisions: Calos Beyer ------ Chief Complaint: neck, left arm pain HPI When did this problem begin: Long time Timing/frequency of occurrence: Constant Pain description: dull ache Pain severity: 7 Radicular pain: left arm Numbness/tingling: left arm Pain is getting: same Weakness: No What improves symptoms: Rest What makes symptoms worse: Activity Gait disturbance: no Fine hand dexterity problem: No Previous treatment for this problem: History fo C5-7 ACDF, PT ROS Constitutional: Fatigue: No Weight loss: No Fever: No Chills: No Past Surgical History: Procedure Laterality Date CTA ABDOMEN PELVIS W AND/OR WO IV CONTRAST 09/30/2020 CT ABDOMEN PELVIS ANGIOGRAM W AND/OR WO IV CONTRAST BOLDEN CONVERSION CTA CHEST W AND/OR WO IV CONTRAST 04/11/2016 CT CHEST ANGIOGRAM W AND/OR WO IV CONTRAST BOLDEN CONVERSION No past medical history on file. Past Surgical History: Procedure Laterality Date CTA ABDOMEN PELVIS W AND/OR WO IV CONTRAST 09/30/2020 CT ABDOMEN PELVIS ANGIOGRAM W AND/OR WO IV CONTRAST BOLDEN CONVERSION CTA CHEST W AND/OR WO IV CONTRAST 04/11/2016 CT CHEST ANGIOGRAM W AND/OR WO IV CONTRAST BOLDEN CONVERSION Allergies Allergen Reactions Hydrocodone-Acetaminophen Headache Latex Morphine Hives Current Outpatient Medications: atorvastatin (Lipitor) 40 mg tablet, Take 40 mg by mouth., Disp: , Rfl: dicyclomine (Bentyl) 10 mg capsule, take 1 capsule by mouth every morning AT NOON AND AT BEDTIME FOR ABDOMINAL PAIN OR CRAMPS, Disp: 30 capsule, Rfl: 0 DULoxetine (Cymbalta) [address] capsule, take 1 capsule by mouth once daily, Disp: 30 capsule, Rfl: 1 omeprazole (PriLOSEC) [address] capsule, Take 20 mg by mouth in the morning and at bedtime., Disp: , Rfl: promethazine (Phenergan) 25 mg tablet, every 12 (twelve) hours., Disp: , Rfl: cyclobenzaprine (Flexeril) 5 mg tablet, Take 2 tablets (10 mg) by mouth at bedtime., Disp: 45 tablet, Rfl: 1 Social History Socioeconomic History Marital status: Legally Spouse name: Not on file Number of children: Not on file Years of education: Not on file Highest education level: Not on file Occupational History Not on file Tobacco Use Smoking status: Never Smokeless tobacco: Never Vaping Use Vaping Use: Never used Substance and Sexual Activity Alcohol use: Yes Alcohol/week: 1.0 standard drink Types: 1 Shots of liquor per week Drug use: Never Sexual activity: Not on file Other Topics Concern Not on file Social History Narrative Not on file Social Determinants of Health Financial Resource Strain: Not on file Food Insecurity: Not on file Transportation Needs: Not on file Physical Activity: Not on file Stress: No Stress Concern Present Feeling of Stress : Not at all Social Connections: Not on file Intimate Partner Violence: Not on file Housing Stability: Not on file Family History Problem Relation Name Age of Onset Diabetes Mother Lung cancer Father Physical Exam There were no vitals taken for this visit. Musculoskeletal Ortho spine musculoskeletal examination: Alignment spine: normal Tenderness: CERVICAL paraspinal Range of motion Cervical spine: limited Spurling Test: Positive Neurological Biceps strength: 5 Wrist extension: 5 Triceps strength: 5 Finger flexor: 5 Finger abduction strength: 5 DTR/ Pathologic reflexes Brachioradialis reflex- 2 Triceps reflex- 2 Bolaños reflex: Absent Gait and station Gait: Normal Tandem gait: Able Images: I, Dr. Calos Beyer, personally reviewed the MRI of the cervical spine which demonstrated minimal C3-4 facet arthropathy, no other significant findings that for which surgical intervention would be warranted. Assessment and Plan 62 years presents with neck, left arm pain in the setting of previous C5-7 ACDF. - Physical therapy -Muscle relaxants - Follow-up as needed. Leo Peters, PGY3 Orthopedic Surgery Resident By using the attestations below, the signing clinician agrees that I have read and verify that the documentation has been personally reviewed by me and ensure that the documentation accurately reflects the encounter. GC: I personally saw this patient on the day of the encounter, performed the orellana portion(s) of the service and participated in the management and confirm the resident's documentation. Please note there may be an additional personal documentation from me. [facility] Progress note 09-02-2022 Note Date & Type Note Facility 09-02-2022 Note ------ Attestation signed by Alexsandra Johnston MD at 09/02/2022 12:38 PM I personally saw and examined the patient on the same date of service as resident/fellow . I discussed the findings and therapeutic plan with the resident/fellow . I agree with the documentation, except for any edits/updates below. Teaching Physician's Revisions: By using the attestations below, the signing clinician agrees that I have read and verify that the documentation has been personally reviewed by me and ensure that the documentation accurately reflects the encounter. Office Visit Attestation GC: I personally saw this patient on the day of the encounter, performed the orellana portion(s) of the service and participated in the management and confirm the resident's documentation. Please note there may be an additional personal documentation from me. Procedure Attestation Level of Attending Supervision for Procedure I was present for the entire procedure ------ Subjective 09/02/22 Rhea Alaniz is a 62 y.o. year old female 60-year-old female presents for new patient evaluation of her left thumb. She states that she fell onto her hands on 2022 and then subsequently sustained significant pain about her left thumb. She had x-rays taken which revealed no fractures. She has been immobilized in a thumb spica brace which was not helpful. She also has taken nonsteroidal anti-inflammatories as well as Tylenol which has not been helpful. It has been over a month since her injury and continues to have significant pain as well as some numbness on the dorsum of her thumb. She states that any activity with her hand exacerbates her pain. It feels better with rest but this does not alleviate her symptoms. Patient History Past Surgical History: Procedure Laterality Date ??? CTA ABDOMEN PELVIS W AND/OR WO IV CONTRAST 09/30/2020 CT ABDOMEN PELVIS ANGIOGRAM W AND/OR WO IV CONTRAST BOLDEN CONVERSION ??? CTA CHEST W AND/OR WO IV CONTRAST 04/11/2016 CT CHEST ANGIOGRAM W AND/OR WO IV CONTRAST BOLDEN CONVERSION History reviewed. No pertinent past medical history. Objective General: Body mass index is 22.94 kg/m???. No acute distress, comfortable Respiratory: Unlabored breathing with normal rate, no cough Cardiovascular: Warm well perfused extremities Psych: Appropriate mood and behavior Left thumb: No gross deformity of the thumb. She does have tenderness palpation about the interphalangeal joint and the MP joint of the thumb but is worse with interphalangeal joint. She has no instability with varus or valgus stress of the MP or the IP joint. Negative CMC grind test. Negative Joe's. Extensor and flexor tendons are intact. Sensation intact light touch with brisk upper refill of the digit. Imaging: X-rays of the left hand reviewed by Dr. Johnston demonstrate no acute findings and only mild CMC joint arthritis. Small Joint: L thumb IP on 09/02/2022 11:55 AM Medications: 0.2 mL lidocaine 10 mg/mL (1 %); 0.2 mL triamcinolone acetonide 10 mg/mL Consent was given by the patient. Assessment/Plan Rhea Alaniz is a 62 y.o. year old female with left distal thumb pain after a fall on 2022. -We discussed with the patient that we do not have a great explanation for the persistence of her pain at this time but it seems to be most localized adjacent to her interphalangeal joint. - Corticosteroid injection administered at the capsule of the IP joint today to hopefully decrease inflammation and improve her symptoms. - Follow-up in 6 weeks. Leo Peters, PGY3 Orthopedic Surgery Resident By using the attestations below, the signing clinician agrees that I have read and verify that the documentation has been personally reviewed by me and ensure that the documentation accurately reflects the encounter. GC: I personally saw this patient on the day of the encounter, performed the orellana portion(s) of the service and participated in the management and confirm the resident's documentation. Please note there may be an additional personal documentation from me. [facility] Evaluation note Note Date & Type Note Facility Evaluation note No Information [facility] [employer] Other Summary Purpose Family History No Family History Records FoundNo Family History Records FoundNo Family History Records FoundNo Family History Records FoundNo Family History Records Found Advance Directives No Advanced Directives Records FoundNo Advanced Directives Records FoundNo Advanced Directives Records FoundNo Advanced Directives Records FoundNo Advanced Directives Records Found Additional Source Comments INFORMATION SOURCE (unrecogn ized section and content) DATE CREATED AUTHOR 09/06/2017 [facility] DATE CREATED AUTHOR AUTHOR'S ORGANIZ ATION 09/23/2021 [facility] DATE CREATED AUTHOR AUTHOR'S ORGANIZ ATION 08/03/2022 [facility] DATE CREATED AUTHOR AUTHOR'S ORGANIZ ATION 02/08/2023 [facility] DATE CREATED AUTHOR AUTHOR'S ORGANIZ ATION 08/24/2023 [facility] REASON FOR VISIT (unrecogniz ed section and content) THINKS THUMB MAY BE BROKE, A ND NECK IS GIVING HER PROBLEMS s/p fall hitting head FOR RECORDS PERTAINING TO PATIENTS WHO ARE OR HAVE BEEN ENROLLED IN A CHEMICAL DEPENDENCY/SUBSTANCEABUSE PROGRAM, SOME INFORMATION MAY BE OMITTED. This clinical summary was aggregated from multiple sources. Caution should be exercised in using it in the provision of clinical care. This summary normalizes information from multiple sources, and as a consequence, information in this document may materially change the coding, format and clinical context of patient data. In addition, data may be omitted in some cases. CLINICAL DECISIONS SHOULD BE BASED ON THE PRIMARY CLINICAL RECORDS. [employer] provides no warranty or guarantee of the accuracy or completeness of information in this document.
--- NOTE | 2023-09-12 15:13 | ED_ITS ---
HPI HPI - General Adult General Chief complaint: Nausea/Vomiting/Diarrhea Stated complaint: BLOOD IN URINE Time Seen by Provider: 09/12/23 14:49 Source: patient Mode of arrival: walk-in History of Present Illness HPI narrative: Patient is a 63-year-old female presents to the ER with concerns of left flank low back and left lower quadrant abdominal pain. Patient was seen at our facility on 615 diagnosed with acute sigmoid diverticulitis and recently finished prescriptions for Cipro and Flagyl. Patient states her symptoms worsen 2 days ago with sharp pain in the left lower back left flank. She noticed blood bright red in her urine today. She has had a prior history of kidney stones. Patient concerned as she has not really felt better since previous ER visit despite medications and did have an episode of diarrhea today. Patient notes nausea with pain sharp 10 out of 10 currently in the left flank. She denies any chest pain or shortness of breath but does appear diaphoretic. Patient reports known history of diverticulitis and kidney stones.Pt Lives in [place] but is staying with her daughter in [facility]. Onset (ago): day(s) (2) Location: Reports abdomen (left flank) Radiation: Reports back, abdomen and flank Severity: severe Quality: Reports sharp Pain Consistency: Reports intermittent and colicky Relieving factors: Reports none Exacerbating factors: Reports none Associated symptoms: Reports diaphoresis and nausea/vomiting (nausea); Denies fever/chills or rash Related Data Home Medications ?Medication ?Instructions ?Recorded ?Confirmed atorvastatin 40 mg tablet 40 mg PO DAILY 09/12/23 09/12/23 Previous Rx's ?Medication ?Instructions ?Recorded ondansetron 4 mg disintegrating 4 mg PO Q8H PRN nausea and 09/02/23 tablet vomiting 4 days #16 tabs Allergies Allergy/AdvReac Type Severity Reaction Status Date / Time morphine Allergy Severe rash Verified 09/02/23 15:30 Opioid HPI Opioid Management Most Recent Opioid Data: Last Pain Scale 10 09/12/23 16:56 Last MAR Pain Assessment 09/12/23 16:56 Review of Systems ROS Constitutional Denies: fever or chills Eyes Denies: change in vision Ears, nose, mouth, and throat Denies: throat pain or neck pain Cardiovascular Denies: chest pain or palpitations Respiratory Denies: shortness of breath or cough Gastrointestinal Reports: abdominal pain (LLQ), nausea and diarrhea Genitourinary Reports: blood in urine; Denies: painful urination Musculoskeletal Denies: back pain Integumentary/Breast Denies: rash or itching Neurological Denies: headache Psychiatric Denies: anxiety Endocrine Denies: excessive urination Exam Narrative Exam Narrative: Nurses notes and vital signs reviewed and patient is not hypoxic. General: The patient appears well and in no apparent distress. Patient is resting comfortably on cart. Skin: Warm, dry, no pallor noted.No evidence of zoster like rash Head: Normocephalic, atraumatic Neck: Supple, trachea mid-line, no tenderness, no lymphadenopathy Eye: Pupils are equal, round and reactive to light, EOMI Ears, Nose, Mouth, and Throat: TM are clear, normal light reflex, oral mucosa is moist, no posterior oropharynx erythema or hypertrophy, uvula is mid-line Cardiovascular: Regular Rate and Rhythm Respiratory: Patient is in no distress, no accessory muscle use, lungs are clear to auscultation, no wheezing, rales or rhonchi. Chest Wall: no tenderness Back: non-tender, no CVA tenderness Musculoskeletal: normal ROM, no tenderness, no swelling GI: Normal bowel sounds, Tenderness to the left flank and left lower quadrant of the abdomen., no masses appreciated. No rebound, guarding, or rigidity noted. Neurological: A&O x4 Psychiatric: Cooperative Constitutional Vital Signs, click to edit/add: Last Vital Signs Temp 98.1 F 09/12/23 14:52 Pulse 90 09/12/23 14:52 Resp 18 09/12/23 14:52 BP 145/90 H 09/12/23 14:52 Pulse Ox 97 09/12/23 14:52 O2 Del Method Room Air 09/12/23 14:52 Course Vital Signs Vital signs: Vital Signs Temperature 98.1 F 09/12/23 14:52 Pulse Rate 90 09/12/23 14:52 Respiratory Rate 18 09/12/23 14:52 Blood Pressure 145/90 H 09/12/23 14:52 Pulse Oximetry 97 09/12/23 14:52 Oxygen Delivery Method Room Air 09/12/23 14:52 Temperature 98.1 F 09/12/23 14:52 Pulse Rate 90 09/12/23 14:52 Respiratory Rate 18 09/12/23 14:52 Blood Pressure 145/90 H 09/12/23 14:52 Pulse Oximetry 97 09/12/23 14:52 Oxygen Delivery Method Room Air 09/12/23 14:52 Medical Decision Making MDM Narrative Medical decision making narrative: Patient presents with prior documented sigmoid diverticulitis 10 days ago, she completed antibiotic treatment with Flagyl and Cipro. Patient developed s ymptoms 2 days ago of sharp left flank pain and does have documented kidney stones on prior CT. Patient agreeable to IV Toradol, Phenergan for nausea as she did not get relief with Zofran at home. Will reassess her symptoms and labs before repeating imaging with risks and benefits discussed. Patient thankful. Repeat examination, patient with continued tenderness left lower quadrant, mild guarding. Recommend CT abdomen and pelvis with IV contrast risks and benefits discussed, must rule out any complications from her outpatient treatment of diverticulitis, clinical setting suspicious for ureterolithiasis. Patient requesting additional pain medication and 0.5 mg IV Dilaudid ordered which she had tolerated previously. Patient reevaluated after Dilaudid, notes pain is tolerable. We discussed her findings concerning for new areas of diverticulitis along her sigmoid colon, Given she was just on Cipro and Flagyl and is likely now failed outpatient treatment with developing new symptoms recommend IV fluid hydration, Zosyn IV Case was discussed with Dr. Loaiza is agreeable with admission as patient has failed outpatient treatment for sigmoid diverticulitis. SHARED APC VISIT, PHYSICIAN ATTESTATION: [id number] I performed a substantive part of the MDM during the patient?s E/M visit. I personally evaluated and examined the patient. I personally made or approved the documented management plan and acknowledge its risk of complications. My (EKG/CT/ LABS) interpretation . Management/test interpretation discussed with . Medical Records Medical records reviewed: Yes I reviewed the patient's medical records Medical records narrative: CT abdomen pelvis on 09/02/23: Pultiple Punctate left renal stones and Ct evidence of acute sigmoid diverticulitis Lab Data Lab results reviewed: Yes I reviewed the patient's lab results Labs: Lab Results 09/12/23 09/12/23 Range/Units 15:12 16:10 WBC 9.2 (4.0-11.0) 10^3/uL RBC 4.24 (4.20-5.40) 10^6/uL Hgb 13.4 (12.0-16.0) g/dL Hct 40.8 (36.0-48.0) % MCV 96.2 (81.0-99.0) fL MCH 31.6 (26.7-34.0) pg MCHC 32.8 (29.9-35.2) g/dL RDW 12.2 (11.0-15.0) % Plt Count 353 (150-450) 10^3/uL MPV 9.3 L (9.5-13.5) fL Neut % (Auto) 76.2 H (43.0-75.0) % Lymph % (Auto) 13.1 L (20.5-60.0) % [place] % (Auto) 7.9 (1.7-12.0) % Eos % (Auto) 2.3 (0.9-7.0) % Baso % (Auto) 0.3 (0.2-2.0) % Neut # (Auto) 7.0 H (1.4-6.5) 10^3/uL Lymph # (Auto) 1.2 (1.2-3.8) 10^3/uL [place] # (Auto) 0.7 (0.3-0.8) 10^3/uL Eos # (Auto) 0.2 (0.0-0.7) 10^3/uL Baso # (Auto) 0.0 (0.0-0.1) 10^3/uL Abs Immat Gran (auto) 0.02 (0.00-0.03) 10^3/uL Imm/Tot Granulo (auto) 0.2 (0.0-0.5) % Sodium 136 (136-145) mmol/L Potassium 3.9 (3.5-5.1) mmol/L Chloride 100 (98-107) mmol/L Carbon Dioxide 27.4 (21.0-32.0) mmol/L Anion Gap 12.5 BUN 19.0 H (7.0-18.0) mg/dL Creatinine 0.93 (0.55-1.02) mg/dL Est GFR ( Amer) >60 (>=60) Est GFR (Non-Af Amer) >60 (>=60) BUN/Creatinine Ratio 20.4 Glucose 127 H (74-106) mg/dL Lactate 1.1 (0.4-2.0) mmol/L Calcium 9.1 (8.5-10.1) mg/dL Total Bilirubin 0.4 (0.2-1.0) mg/dL AST 18 (15-37) U/L ALT 17 (14-59) U/L Alkaline Phosphatase 58 (46-116) U/L Troponin I High Sens 5.8 (4.0-51.3) pg/mL Total Protein 7.2 (6.4-8.2) g/dL Albumin 3.5 (3.4-5.0) g/dL Globulin 3.7 g/dL Albumin/Globulin Ratio 0.9 Lipase 26.0 (16.0-77.0) U/L Urine Color Yellow (YELLOW) Urine Clarity Clear (CLEAR) Urine pH 6.0 (5.0-9.0) Ur Specific [place] 1.020 (1.005-1.025) Urine Protein Negative (NEG/TRACE) mg/dL Urine Glucose (UA) Negative (NEGATIVE) mg/dL Urine Ketones Negative (NEGATIVE) mg/dL Urine Occult Blood Trace-i (NEGATIVE) Urine Nitrite Negative (NEGATIVE) Urine Bilirubin Negative (NEGATIVE) Urine Urobilinogen 0.2 (0.2-1.0) EU/dL Ur Leukocyte Esterase Negative (NEGATIVE) Urine RBC 2-5 A (0-2) #/HPF Urine WBC 0-2 A (NONE SEEN) #/HPF Ur Squamous Epith Cells Rare (NONE/RARE) #/LPF Urine Crystals None seen (None Seen) #/HPF Urine Bacteria Trace A (NONE SEEN) #/HPF Urine Casts None seen (NONE SEEN) #/LPF Urine Mucus None seen (NONE SEEN) Ur Culture Indicated? No Imaging Data CT scan - abdomen: Radiologist's impression: ITS Impressions Abdomen/Pelvis CT 09/12/23 16:06 IMPRESSION: Acute uncomplicated sigmoid diverticulitis at two different sites of the rectosigmoid colon new from prior study. Previously noted sigmoid diverticulitis has resolved. Electronically authenticated by: SHANTAL FORRESTER Date: 09/12/2023 17:48 ECG Data Interpretation: EKG interpretation: Emergency Department physician interpretation, normal sinus rhythm 77 bpm , no ectopy, no ST segment elevation, normal axis. Discharge Plan Discharge Chief Complaint: Nausea/Vomiting/Diarrhea Clinical Impression: Acute left flank pain, Diverticulitis Patient Disposition: Admitted As Inpatient Time of Disposition Decision: 18:01 Condition: Good Prescriptions / Home Meds: No Action ondansetron 4 mg tablet,disintegrating 4 mg PO Q8H PRN (Reason: nausea and vomiting) 4 Days Qty: 16 0RF atorvastatin 40 mg tablet 40 mg PO DAILY Print Language: Uzbek Referrals: Physician,Non-Staff, MD [Primary Care Provider] - 1 week
--- NOTE | 2023-09-12 15:13 | ECG_ITS ---
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
[2023-09-12] MEDS: KETOROLAC TROMETHAMINE 30 MG/ML VIAL IVP ×2 (15:28→19:38)
[2023-09-12] MEDS: 0.9 % SODIUM CHLORIDE 1,000 ML 999 ML IV (15:28)
[2023-09-12] MEDS: PROMETHAZINE HCL 25 MG/ML VIAL IV (15:29)
[2023-09-12 15:35] LABS: Basophils Percent Auto 0.3 % (0.2-2.0); Eosinophils Absolute Auto 0.2 10^3/uL (0.0-0.7); Eosinophils Percent Auto 2.3 % (0.9-7.0); Hematocrit 40.8 % (36.0-48.0); Hemoglobin 13.4 g/dL (12.0-16.0); Immature Granulocytes Abs Auto 0.02 10^3/uL (0.00-0.03); Immature Granulocytes Pct Auto 0.2 % (0.0-0.5); Lymphocytes Absolute Auto 1.2 10^3/uL (1.2-3.8); Lymphocytes Percent Auto 13.1 % (20.5-60.0); Mean Corpuscular HGB Conc 32.8 g/dL (29.9-35.2); Mean Corpuscular Hemoglobin 31.6 pg (26.7-34.0); Mean Corpuscular Volume 96.2 fL (81.0-99.0); Mean Platelet Volume 9.3 fL (9.5-13.5); Monocytes Absolute Auto 0.7 10^3/uL (0.3-0.8); Monocytes Percent Auto 7.9 % (1.7-12.0); Neutrophils Percent Auto 76.2 % (43.0-75.0); Platelet Count 353 10^3/uL (150-450); Red Blood Count 4.24 10^6/uL (4.20-5.40); Red Cell Distribution Width 12.2 % (11.0-15.0); White Blood Count 9.2 10^3/uL (4.0-11.0)
[2023-09-12 15:47] LABS: Lactate/Lactic Acid 1.1 mmol/L (0.4-2.0); Troponin I High Sensitivity 5.8 pg/mL (4.0-51.3)
[2023-09-12 15:54] LABS: Alanine Aminotransferase 17 U/L (14-59); Albumin Globulin Ratio 0.9; Albumin Level 3.5 g/dL (3.4-5.0); Alkaline Phosphatase 58 U/L (46-116); Anion Gap 12.5; Aspartate Amino Transferase 18 U/L (15-37); BUN Creatinine Ratio 20.4; Bilirubin Total 0.4 mg/dL (0.2-1.0); Calcium 9.1 mg/dL (8.5-10.1); Carbon Dioxide 27.4 mmol/L (21.0-32.0); Chloride 100 mmol/L (98-107); Estimated GFR (African America >60 (>=60); Estimated GFR (Non-African Ame >60 (>=60); Globulin 3.7 g/dL; Glucose 127 mg/dL (74-106); Potassium 3.9 mmol/L (3.5-5.1); Sodium 136 mmol/L (136-145); Total Protein 7.2 g/dL (6.4-8.2)
--- NOTE | 2023-09-12 16:06 | CT_ITS ---
[address] [address] Patient Name: KILEY ALANIZ MRN: [id number] date: 1960 Sex: F Assigned Patient Location: ER Current Patient Location: ER Accession/Order Number: [id number] Exam Date: 09/12/2023 17:02 Report Date: 09/12/2023 17:48 At the request of: BHASKAR GHOTRA Procedure: CT abdomen pelvis w con CT ABDOMEN/PELVIS WITH IV CONTRAST. INDICATION: LLQ pain. COMPARISON: 09/02/2023 TECHNIQUE: Contiguous axial images were obtained from the lung bases to the pelvic floor following the intravenous administration of contrast. Coronal and sagittal reformations are provided. FINDINGS: LOWER LUNGS: Clear. LIVER/BILIARY TREE: Stable right hepatic lobe 2 cm cyst. No intrahepatic ductal dilatation. GALLBLADDER: No significant gallbladder wall thickening. No radiopaque stone. CBD: Normal CBD. SPLEEN: Normal in size. PANCREAS: No acute findings. No peripancreatic fluid or inflammation. No pancreatic duct dilatation. No discrete mass. ADRENALS: Normal. KIDNEYS: No hydronephrosis. There is a nonobstructing 2 mm left renal stone. STOMACH AND BOWEL: Stomach is unremarkable. No dilated bowel loops. There are newly inflamed diverticula in the rectosigmoid colon and proximal sigmoid colon. No perforation or abscess. Previously noted sigmoid diverticulitis has resolved. APPENDIX: Normal appendix. PERITONEAL CAVITY: No fluid. There is stranding surrounding the rectosigmoid colon.. ABDOMINAL WALL: No subcutaneous stranding. No subcutaneous fluid collection. LYMPH NODES: No mesenteric or retroperitoneal lymphadenopathy by CT criteria. ABDOMINAL AORTA: No aneurysm. PELVIS: No acute abnormality. MUSCULOSKELETAL: No acute osseous abnormality. CT/CT abdomen pelvis w con IMPRESSION: Acute uncomplicated sigmoid diverticulitis at two different sites of the rectosigmoid colon new from prior study. Previously noted sigmoid diverticulitis has resolved. Electronically authenticated by: SHANTAL FORRESTER Date: 09/12/2023 17:48
[2023-09-12 16:27] LABS: Bilirubin Urine NEGATIVE (NEGATIVE); Blood Urine TRACE-I (NEGATIVE); Clarity Urine CLEAR (CLEAR); Color Urine YELLOW (YELLOW); Glucose Urine UA NEGATIVE (NEGATIVE); Ketones Urine NEGATIVE (NEGATIVE); Leukocyte Esterase Urine NEGATIVE (NEGATIVE); Nitrite Urine NEGATIVE (NEGATIVE); Protein Urine NEGATIVE (NEG/TRACE); Urobilinogen Urine 0.2 EU/dL (0.2-1.0)
[2023-09-12 16:29] LABS: Urine Microscopic Indicated YES
[2023-09-12 16:32] LABS: Bacteria Urine TRACE #/HPF (NONE SEEN); Cast Seen? NONE SEEN #/LPF (NONE SEEN); Crystals Seen? None Seen #/HPF (None Seen); Mucus Urine NONE SEEN (NONE SEEN); Squamous Epithelial Cell Urine RARE #/LPF (NONE/RARE); WBC Urine 0-2 #/HPF (NONE SEEN)
[2023-09-12 16:33] LABS: Urine Culture Indicated NO
[2023-09-12] MEDS: HYDROMORPHONE HCL 0.5 MG/0.5 ML SYRINGE IV (16:56)
[2023-09-12] MEDS: PIPERACILLIN SODIUM/TAZOBACTAM 4.5 GM in 0.9 % SODIUM CHLORIDE 50 ML IV (17:30)
[2023-09-12 18:56] LABS: Lactate/Lactic Acid 0.9 mmol/L (0.4-2.0)
--- OUTSIDE RECORDS SUMMARY | 2023-09-12 19:03 | XMS_ITS | CCD ---
Author Organization [facility] Care Team Providers Care Audience Development Manager Name Role Phone ELINA DEL ANGEL Unavailable [...] JOANN Attending Unavailable NUCKLOS, RONALD Referring Unavailable AL Procedure Practitioner Unavailab le EBRAHEIM, JOANN Admitting [...] Unavailable RASTEGAR, DAVION Consulting Unavailable ULISES ZULUAGA, MARGARETH~[id number] ULISES Attending Unavailable NUCKLOS, RONALD N Attending Unavailable NUCKLOS, RONALD N Attending Unavailable NUCKLOS, RONALD N Referring Unavailable NUCKLOS, RONALD N Referring Unavailable NUCKLOS, RONALD N Referring Unavailable ELGAFY, CALOS Referring Unavailable ELGAFY, CALOS Attending Unavailable HILDA, ALEXSANDRA Attending Unavailable Allergies Allergy Classification Reported Allergen(s) Allergy Type Date of Onset Reaction(s) Facility (1 source) Acetaminophen / HYDROcodone Drug Allergy 3 The [facility] Repository (2 sources) Latex; Translations: [LATEX] Propensity to adverse reactions (disorder) 7 The [facility] Repository (3 sources) Morphine; Translations: [MORPHINE] Drug Allergy 9 The [facility] Repository (1 source) Acetaminophen / HYDROcodone; Translations: [HYDROCODONE-ACET AMINOPHEN] Drug Allergy 4 [facility] Repository Problems Active Problems Problem Classification Problem [...] to go to the [facility]. Normal [facility] CT ABDOMEN PELVIS W IV CONTR Justus [...] Ross Deras. Kathy Montoy[employer]td Invalid Interpretation Code [facility] BI MAMMOGRAM DIAGNOSTIC JORGE SYNTHESIS LEFTon 02-23-2024 [...] utilized.. Computer aided detection was utilized using [employer]. FINDINGS: The breasts are heterogeneously dense, which [...] January 2024. Electronically signed: Ben Sherwood. Normal [facility] Documentationon 04-28-2023 Documentation [id number] TomangelachrisGerry 1960 F Date Provider Department Center 04/28/2023 1052-YESSENIA ROQUE [facility] Comprehensiv Family History Problem Relation Age of Onset Diabetes Mother Lung cancer Father Family Status - Relation Status Age at Mother Father Reason for Visit and Comments: Hyperlipidemia [182] Normal [facility] Documentation [id number] Gerry Alaniz 1960 F Date Provider Department Center 04/28/2023 [id number], KARA [facility] Comprehensiv Family History Problem Relation Age of Onset Diabetes Mother Lung cancer Father Family Status - Relation Status Age at Mother Father Reason for Visit and Comments: Specialty Note- Evolocumab (Repatha) [Other] Normal [facility] Office Visiton 04-28-2023 Follow-up visit [id number] Gerry Alaniz 1960 F Date Provider Department Center 04/28/2023 381-RONALD SAMANO [facility] Comprehensiv Family History Problem Relation Age of Onset Diabetes Mother Lung cancer Father Family Status - Relation Status Age at Mother Father Level of Service:42512 AL OFFICE/OUTPATIENT ESTABLISHED MOD MDM 30 MIN Reason for Visit and Comments: Follow-up [203053] - Patient here for Lab Review, Cough x a couple days, Reviewed 04/28/2023 -EK Normal [facility] 36on 04-24-2023 36 NM Radiology receive d imaging from outside facility. Spoke to Maire in radiology records, images to be uploaded in [employer]. Isha [phone] Patient was notified by phone staff. Spoke to Isha, patient is aware that results were received and uploaded. Normal [facility] CBC WITH AUTO DIFFERENTIALon 04-14-2023 Basophils (Bld) [#/Vol] 0.02 10*3/uL Normal 0.00-0.20 [facility] Comment on above: Performed By: #### L [id number] #### [facility] ([facility]) [address] [place] [address] Basophils/100 WBC (Bld) 0.3 % Normal 0.0-1.0 [facility] Comment on above: Performed By: #### L [id number] #### [facility] ([facility]) [address] [place] [address] Eosinophils (Bld) [#/Vol] 0.09 10*3/uL Normal 0.00-0.50 [facility] Comment on above: Performed By: #### L [id number] #### [facility] ([facility]) [address] [place] [address] Eosinophils/100 WBC (Bld) 1.5 % Normal 0.0-6.0 [facility] Comment on above: Performed By: #### L [id number] #### [facility] ([facility]) [address] [place] [address] Erythrocyte distribution width (RBC) [Ratio] 13.7 % Normal 11.5-15.0 [facility] Comment on above: Performed By: #### L [id number] #### [facility] [address] [place] [address] ERYTHROCYTE MEAN CORPUSCULAR HEMOGLOBIN CONCENTRATION (G/DL) BY AUTOMATED 32.9 g/dL Normal 32.0-35.0 [facility] Comment on above: Performed By: #### L [id number] #### [facility] ([facility]) [address] [place] [address] Hematocrit (Bld) [Volume fraction] 43.2 % Normal 36.0-48.0 [facility] Comment on above: Performed By: #### L [id number] #### [facility] ([facility]) [address] [place] [address] Hemoglobin (Bld) [Mass/Vol] 14.2 g/dL Normal 12.0-15.0 [facility] Comment on above: Performed By: #### L [id number] #### [facility] [address] [address] Immature granulocytes (Bld) [#/Vol] 0.02 10*3/uL Normal 0.00-0.20 [facility] Comment on above: Performed By: #### L [id number] #### [facility] ([facility]) [address] [place] [address] Immature granulocytes/100 WBC (Bld) 0.3 % Normal 0.0-1.0 [facility] Comment on above: Performed By: #### L [id number] #### [facility] ([facility]) [address] [place] [address] Lymphocytes (Bld) [#/Vol] 1.04 10*3/uL Low 1.20-4.00 [facility] Comment on above: Performed By: #### L [id number] #### [facility] ([facility]) [address] [place] [address] Lymphocytes/100 WBC (Bld) 17.3 % Low 20.0-45.0 [facility] Comment on above: Performed By: #### L [id number] #### [facility] ([facility]) [address] [place] [address] MCH (RBC) [Entitic mass] 31.2 pg Normal 27.0-33.0 [facility] Comment on above: Performed By: #### L [id number] #### [facility] ([facility]) [address] [place] [address] MCV (RBC) [Entitic vol] 94.9 fL Normal 82.0-98.0 [facility] Comment on above: Performed By: #### L [id number] #### [facility] ([facility]) [address] [place] [address] Monocytes (Bld) [#/Vol] 0.60 10*3/uL Normal 0.10-1.00 [facility] Comment on above: Performed By: #### L [id number] #### [facility] ([facility]) [address] [place] [address] Monocytes/100 WBC (Bld) 10.0 % Normal 5.0-12.0 [facility] Comment on above: Performed By: #### L [id number] #### [facility] ([facility]) [address] [place] [address] Neutrophils (Bld) [#/Vol] 4.23 10*3/uL Normal 1.60-7.60 [facility] Comment on above: Performed By: #### L [id number] #### [facility] ([facility]) [address] [place] [address] Neutrophils/100 WBC (Bld) 70.6 % Normal 40.0-72.0 [facility] Comment on above: Performed By: #### L [id number] #### [facility] ([facility]) [address] [place] [address] NRBC (PER 100 WBCS) BY AUTOMATED COUNT 0.0 % Normal 0 [facility] Comment on above: Performed By: #### L [id number] #### [facility] ([facility] [address] [place] [address] PLATELETS (10*3/UL) IN BLOOD AUTOMATED COUNT 310 10*3/uL Normal 150-400 [facility] Comment on above: Performed By: #### L [id number] #### [facility] ([facility]) [address] [place] [address] RBC (Bld) [#/Vol] 4.55 10*6/uL Normal 3.80-5.00 [facility] Comment on above: Performed By: #### L [id number] #### [facility] ([facility]) [address] [place] [address] WBC (Bld) [#/Vol] 6.00 10*3/uL Normal 4.00-10.60 [facility] Comment on above: Performed By: #### L [id number] #### [facility] ([facility]) [address] [place] [address] COMPREHENSIVE METABOLIC PANE Paul 04-14-2023 Albumin [Mass/Vol] 4.8 g/dL Normal 3.5-5.7 [facility] Comment on above: Performed By: #### L [id number] #### [facility] ([facility]) [address] [place] [address] ALP [Catalytic activity/Vol] 68 U/L Normal 34-104 [facility] Comment on above: Performed By: #### L [id number] #### [facility] ([facility]) [address] [place] [address] ALT [Catalytic activity/Vol] 18 U/L Normal 7-52 [facility] Comment on above: Performed By: #### L [id number] #### [facility] ([facility]) [address] [place] [address] Anion gap [Moles/Vol] 13 mmol/L Normal 7-20 [facility] Comment on above: Performed By: #### L [id number] #### [facility] ([facility]) [address] [place] [address] AST [Catalytic activity/Vol] 17 U/L Normal 13-39 [facility] Comment on above: Performed By: #### L [id number] #### [facility] ([facility]) [address] [place] [address] Bilirubin [Mass/Vol] 1.0 mg/dL Normal 0.3-1.0 [facility] Comment on above: Performed By: #### L [id number] #### [facility] ([facility]) [address] [place] [address] Calcium [Mass/Vol] 9.8 mg/dL Normal 8.6-10.3 [facility] Comment on above: Performed By: #### L [id number] #### [facility] [address] [place] [address] Chloride [Moles/Vol] 103 mmol/L Normal 98-107 [facility] Comment on above: Performed By: #### L [id number] #### [facility] [address] [place] [address] CO2 [Moles/Vol] 28 mmol/L Normal 21-31 [facility] Comment on above: Performed By: #### L [id number] #### [facility] ([facility] [address] [place] [address] Creatinine [Mass/Vol] 0.81 mg/dL Normal 0.60-1.20 [facility] Comment on above: Performed By: #### L [id number] #### [facility] ([facility] [address] [place] [address] GLOMERULAR FILTRATION RATE ML/MIN/1.73 SQ M.PREDICTED 82.0 mL/min/1.73m*2 Normal >60.0 [facility] Comment on above: Result Comment: The [facility]???s estimated glomerular filtration rate (eGFR) will no [...] individuals. Performed By: #### L [id number] #### [facility] ([facility]) [address] [place] [address] Glucose [Mass/Vol] 94 mg/dL Normal 70-100 [facility] Comment on above: Performed By: #### L [id number] #### [facility] ([facility]) [address] [place] [address] Potassium [Moles/Vol] 4.1 mmol/L Normal 3.5-5.1 [facility] Comment on above: Performed By: #### L [id number] #### [facility] ([facility]) [address] [place] [address] Protein [Mass/Vol] 7.5 g/dL Normal 6.0-8.3 [facility] Comment on above: Performed By: #### L [id number] #### [facility] ([facility]) [address] [place] [address] Sodium [Moles/Vol] 140 mmol/L Normal 136-145 [facility] Comment on above: Performed By: #### L [id number] #### [facility] ([facility]) [address] [place] [address] Urea nitrogen [Mass/Vol] 20 mg/dL Normal 7-25 [facility] Comment on above: Performed By: #### L [id number] #### [facility] ([facility]) [address] [place] [address] UREA NITROGEN/CREATININE (MASS RATIO) IN SER/PLAS 24.7 Normal [facility] Comment on above: Performed By: #### L [id number] #### [facility] ([facility]) [address] [place] [address] Follow-Upon 04-14-2023 Follow-Up [id number] Gerry Alaniz 1960 F Date Provider Department Center 04/14/2023 381-RONALD SAMANO [facility] Comprehensiv Family History Problem Relation Age of Onset Diabetes Mother Lung cancer Father Family Status - Relation Status Age at Mother Father Level of Service:10121 AL OFFICE/OUTPATIENT ESTABLISHED MOD MDM 30 MIN Reason for Visit and Comments: Follow-up [064079] - Patient here for mammogram review, lump in groin, kidney labs, Reviewed 04/14/2023 -EK Normal [facility] LIPID PANELon 04-14-2023 CHOL/HDL 4.1 mg/dL Normal [facility] Comment on above: Performed By: #### L [id number] #### [facility] ([facility]) [address] [place] [address] Cholesterol [Mass/Vol] 346 mg/dL High 120-200 [facility] Comment on above: Performed By: #### L [id number] #### [facility] ([facility]) [address] [place] [address] Magnesium [Mass/Vol] 144 mg/dL Normal 40-149 [facility] Comment on above: Result Comment: TRIG LYCERIDE REFERENCE RANGE: 20 YEARS AND OLDER CARDIOVASCULAR RISK LESS THAN 150 mg/dL LOW RISK 150 TO 199 mg/dL BORDERLINE RISK 200 mg/dL AND GREATER HIGH RISK Performed By: #### L [id number] #### [facility] [address] [place] [address] Magnesium [Mass/Vol] 233 mg/dL High 0-160 [facility] Comment on above: Performed By: #### L [id number] #### [facility] ([facility]) [address] [place] [address] Magnesium [Mass/Vol] 84 mg/dL Normal 23-92 [facility] Comment on above: Performed By: #### L [id number] #### [facility] ([facility]) [address] [place] [address] NON HDL CHOL. (LDL+VLDL) 262 Normal [facility] Comment on above: Performed By: #### L [id number] #### [facility] ([facility]) [address] [place] [address] TOTAL VLDL-C 29 mg/dL Normal 0-40 [facility] Comment on above: Performed By: #### L [id number] #### [facility] ([facility]) [address] [place] [address] T3, FREEon 04-14-2023 TRIIODOTHYRONINE (T3) FREE (PG/ML) IN SER/PLAS 3.7 pg/mL Normal 2.5-3.9 [facility] Comment on above: Performed By: #### L [id number] #### [facility] ([facility]) [address] [facility] [place] [address] T4, FREEon 04-14-2023 THYROXINE (T4) FREE (NG/DL) IN SER/PLAS 0.83 ng/dL Normal 0.71-1.85 [facility] Comment on above: Performed By: #### L [id number] #### [facility] ([facility]) [address] [place] [address] TSHon 04-14-2023 THYROTROPIN (MIU/L) IN SER/PLAS BY DETECTION LIMIT <= 0.05 MIU/L 1.62 mIU/L Normal 0.34-5.60 [facility] Comment on above: Performed By: #### L [id number] ####[facility] ([facility])[address] [place] [address] 36on 04-07-2023 36 Received mammogram results from [place]. Scanned into chart for review. [facility] 36on 04-06-2023 36 Patient called offic e requesting to have medical records for mammogram transferred from [place] to our office. Patient gave Phone number of [phone] extension [phone], however when I called number it was not a working number. Please advise. [facility] 36on 09-09-2022 36 Left message remindi ng of appt. [facility] Orders Onlyon 09-09-2022 Orders Only [id number] Gerry Alaniz 1960 F Date Provider Department Center 09/09/2022 VITO ALMEIDA [facility] Comprehensiv Family History Problem Relation Age of Onset Diabetes Mother Lung cancer Father Family Status - Relation Status Age at Mother Father Normal [facility] Follow-Upon 09-03-2022 Follow-Up [id number] Gerry Alaniz 1960 Date Provider Department Center 09/03/2022 Fabi-CALOS BEYER MP ORTHO MPORTHO Family History Problem Relation Age of Onset Diabetes Mother Lung cancer Father Family Status - Relation Status Age at Mother Father Level of Service:80333 AL OFFICE/OUTPATIENT ESTABLISHED LOW MDM 20-29 MIN (GC) Reason for Visit and Comments: Follow-up [291528] - MRI results Normal [facility] Follow-Upon 09-02-2022 Follow-Up [id number] Gerry Alaniz 1960 Date Provider Department Center 09/02/2022 Jill-ADAM JOHNSTON ORTHO MPORTHO Family History Problem Relation Age of Onset Diabetes Mother Lung cancer Father Family Status - Relation Status Age at Mother Father Level of Service:57605 AL OFFICE/OUTPATIENT ESTABLISHED LOW MDM 20-29 MIN Reason for Visit and Comments: Pain [136] Pain [136] Normal [facility] CBC AUTO DIFFon 07-29-2022 BASO # 0.0 103/ul Normal 0.0-0.1 [facility] Comment on above: Performed By: #### C BC #### [facility] [address] [address] [address] Kushal Hernandez Basophils/100 WBC (Bld) 0.4 % Normal 0.2-2.0 [facility] Comment on above: Performed By: #### C BC #### [facility] [address] [address] [address] Kushal Hernandez EO # 0.2 103/ul Normal 0.0-0.7 [facility] Comment on above: Performed By: #### C BC #### [facility] [address] [address] [address] Kushal Hernandez Eosinophils/100 WBC (Bld) 4.2 % Normal 0.9-7.0 [facility] Comment on above: Performed By: #### C BC #### [facility] [address] [place] [address] Dr. Kushal Hernandez Erythrocyte distribution width (RBC) [Ratio] 11.9 % Normal 11.0-15.0 [facility] Comment on above: Performed By: #### C BC #### [facility] [address] [place] [address] Dr. Kushal Hernandez Hematocrit (Bld) [Volume fraction] 39.1 % Normal 36.0-48.0 [facility] Comment on above: Performed By: #### C BC #### [facility] [address] [place] [address] Dr. Kushal Hernandez Hemoglobin (Bld) [Mass/Vol] 13.0 g/dL Normal 12.0-16.0 [facility] Comment on above: Performed By: #### C BC #### [facility] [address] [place] [address] Dr. Kushal Hernandez IG # 0.02 10e3/ul Normal 0.00-0.03 [facility] Comment on above: Performed By: #### C BC #### [facility] [address] [place] [address] Dr. Kushal Hernandez IG % 0.4 % Normal 0.0-0.5 [facility] Comment on above: Performed By: #### C BC #### [facility] [address] [place] [address] Dr. Kushal Hernandez LYMPH # 1.1 103/ul Critically low 1.2-3.8 [facility] Comment on above: Performed By: #### C BC #### [facility] [address] [place] [address] Dr. Kushal Hernandez Lymphocytes/100 WBC (Bld) 20.2 % Critically low 20.5-60.0 [facility] Comment on above: Performed By: #### C BC #### [facility] [address] [place] [address] Dr. Kushal Hernandez MANUAL DIFF REQ NO Normal [facility] Comment on above: Performed By: #### C BC #### [facility] [address] [place] [address] Dr. Kushal Hernandez MCH (RBC) [Entitic mass] 31.9 pg Normal 26.7-34.0 [facility] Comment on above: Performed By: #### C BC #### [facility] [address] [place] [address] Dr. uKshal Hernandez MCHC (RBC) [Mass/Vol] 33.2 g/dL Normal 29.9-35.2 [facility] Comment on above: Performed By: #### C BC #### [facility] [address] [place] [address] Dr. Kushal Hernandez MCV (RBC) [Entitic vol] 96.1 fL Normal 81.0-99.0 [facility] Comment on above: Performed By: #### C BC #### [facility] [address] [place] [address] Dr. Kushal Hernandez MONO # 0.4 103/ul Normal 0.3-0.8 [facility] Comment on above: Performed By: #### C BC #### [facility] [address] [place] [address] Dr. Kushal Hernandez Monocytes/100 WBC (Bld) 6.9 % Normal 1.7-12.0 [facility] Comment on above: Performed By: #### C BC #### [facility] [address] [place] [address] Dr. Kushal Hernandez NEUT # 3.5 103/ul Normal 1.4-6.5 [facility] Comment on above: Performed By: #### C BC #### [facility] [address] [place] [address] Dr. Kushal Hernandez Neutrophils/100 WBC (Bld) 67.9 % Normal 43.0-75.0 [facility] Comment on above: Performed By: #### C BC #### [facility] [address] [place] [address] Dr. Kushal Hernandez Platelet mean volume (Bld) [Entitic vol] 8.6 fL Critically low 9.5-13.5 [facility] Comment on above: Performed By: #### C BC #### [facility] [address], [place] [address] Dr. Kushal Hernandez PLT 273 103/ul Normal 150-450 [facility] Comment on above: Performed By: #### C BC #### [facility] [address], [place] [address] Dr. Kushal Hernandez RBC 4.07 106/ul Critically low 4.20-5.40 The [facility] Comment on above: Performed By: #### C BC #### [facility] [address], [place] [address] Dr. Kushal Hernandez WBC 5.2 103/ul Normal 4.0-11.0 [facility] Comment on above: Performed By: #### C BC #### [facility] [address], [place] [address] HEAD WO CONon [...] DAVION ACEVEDO Date: 2022-07-29 13:30 Normal [facility] PROF 14(COMP METB)on 023 Albumin [Mass/Vol] 3.9 g/dL Normal 3.4-5.0 [facility] Comment on above: Performed By: #### C MP #### [facility] [address] [place] [address] Dr. Kushal Hernandez Albumin/Globulin [Mass ratio] 1.2 {ratio} Normal [facility] Comment on above: Performed By: #### C MP #### [facility] [address] [place] [address] Dr. Kushal Hernandez ALP [Catalytic activity/Vol] 59 U/L Normal 46-116 [facility] Comment on above: Performed By: #### C MP #### [facility] [address] [place] [address] Dr. Kushal Hernandez ALT [Catalytic activity/Vol] 17 U/L Normal 14-59 [facility] Comment on above: Performed By: #### C MP #### [facility] [address] [place] [address] Dr. Kushal Hernandez Anion gap [Moles/Vol] 12.1 mmol/L Normal [facility] Comment on above: Performed By: #### C MP #### [facility] [address] [place] [address] Dr. Kushal Hernandez AST [Catalytic activity/Vol] 14 U/L Critically low 15-37 [facility] Comment on above: Performed By: #### C MP #### [facility] [address] [place] [address] Dr. Kushal Hernandez Bilirubin [Mass/Vol] 0.6 mg/dL Normal 0.2-1.0 [facility] Comment on above: Performed By: #### C MP #### [facility] [address] [place] [address] Dr. Kushal Hernandez Calcium [Mass/Vol] 9.1 mg/dL Normal 8.5-10.1 The [facility] Comment on above: Performed By: #### C MP #### [facility] [address] [address] [address] Kushal Hernandez Chloride [Moles/Vol] 104 mmol/L Normal 98-107 [facility] Comment on above: Performed By: #### C MP #### [facility] [address] [address] [address] Kushal Hernandez CO2 [Moles/Vol] 28.7 mmol/L Normal 21.0-32.0 The [facility] Comment on above: Performed By: #### C MP #### [facility] [address] [place] [address] Dr. Kushal Hernandez Creatinine [Mass/Vol] 0.93 mg/dL Normal 0.55-1.02 [facility] Comment on above: Performed By: #### C MP #### [facility] [address] [place] [address] Dr. Kushal Hernandez EGFR-AF ERITREAN >60 Normal >=60 The [facility] Comment on above: Performed By: #### C MP #### [facility] [address] [address] [address] Kushal Hernandez EGFR-NON AF ERITREAN >60 Normal >=60 [facility] Comment on above: Performed By: #### C MP #### [facility] [address] [place] [address] Dr. Kushal Hernandez Globulin (S) [Mass/Vol] 3.2 g/dL Normal [facility] Comment on above: Performed By: #### C MP #### [facility] [address] [place] [address] Dr. Kushal Hernandez Glucose [Mass/Vol] 170 mg/dL Critically high 74-106 [facility] Comment on above: Performed By: #### C MP #### [facility] [address] [address] [address] Kushal Hernandez Potassium [Moles/Vol] 3.8 mmol/L Normal 3.5-5.1 [facility] Comment on above: Performed By: #### C MP #### [facility] [address] [place] [address] Dr. Kushal Hernandez Protein [Mass/Vol] 7.1 g/dL Normal 6.4-8.2 [facility] Comment on above: Performed By: #### C MP #### [facility] [address] [address] [address] Kushal Hernandez Sodium [Moles/Vol] 141 mmol/L Normal 136-145 [facility] Comment on above: Performed By: #### C MP #### [facility] [address] [address] [address] Kushal Hernandez Urea nitrogen [Mass/Vol] 17.0 mg/dL Normal 7.0-18.0 [facility] Comment on above: Performed By: #### C MP #### [facility] [address] [address] [address] Kushal Hernandez Urea nitrogen/Creatinine [Mass ratio] 18.3 mg/mg Normal [facility] Comment on above: Performed By: #### C MP #### [facility] [address] [address] [address] Kushal Hernandez TROPONIN, HIGH SENSITIVITYon 07-29-2022 HSTROP <4.0 Normal 4.0-51.3 [facility] Comment on above: Result Comment: CUT- OFF POINTS HAVE BEEN ESTABLISHED BASED ON THE FOURTH UNIVERSAL DEFINITIONS OF MYOCARDIAL INFARCTION. THE UPPER REFERENCE LIMIT (URL) OF TROPONIN, DEFINED THE 99TH PERCENTILE OF cTnI DISTRIBUTION IN A REFERENCE POPULATION, HAS BEEN CONFIRMED THE DECISION THRESHOLD FOR LA DIAGNOSIS. Performed By: #### H STROPN #### [facility] [address] [place] [address] Dr. Kushal Hernandez XR HAND FLAVIA MIN [...] by: CHRISSY STILL Date: 2022-07-29 13:55 Normal [facility] DIGITAL MAMMOGRAM DIAGNOSTIC RIGHTon 09-15-2021 DIGITAL MAMMOGRAM DIAGNOSTIC RIGHT [facility] Department of Radiology [address] [place] [id number] ===== Patient Name: RHEA ALANIZ : [...] projection. Electronically signed: Rex Wagner. Transcribed by: [email or web address], User Resident: Electronically Signed by: REX WAGNER @ 09/16/2021 01:36 PM Normal The [facility] MAMMOGRAM SCREENING TOMOSYNT HESIS BILATERALon 09-15-2021 MAMMOGRAM SCREENING TOMOSYNTHESIS BILATERAL [facility] Department of Radiology [address] [place] [address] ===== Patient Name: RHEA ALANIZ : 1960 Sex: F Age: Race: White Pt. Location: [facility] Patient Status: D Ordered Date: 09/11/2021 2:55:00 PM Completed Date: 09/15/2021 12:50 PM Requesting Provider: RONALD SAMANO Attending Provider: RONALD SAMANO Report Copy To: Signs & Symptoms: Z12.31 Encntr screen mammogram for malignant neoplasm of breast I10 History: Kat previous study 09/09/20 [facility] Comments: Breast Implant?: N , Ultrasound, if [...] recommended Electronically signed: Rex Wagner. Transcribed by: [email or web address], User Resident: Electronically Signed by: REX WAGNER @ 09/16/2021 01:34 PM Normal The [facility] Comment on above: Order Comment: Breas t Implant?: N , Ultrasound, if necessary?: Y BASIC METABOLIC PANELon -2 Calcium [Mass/Vol] 9.3 mg/dL Normal 8.6-10.3 The [facility] Comment on above: Performed By: #### 0 0071, [id number] #### [facility] [address] [place] [address], [place] Chloride [Moles/Vol] 105 mmol/L Normal 98-107 The [facility] Comment on above: Performed By: #### 0 0071, 84900 #### [facility] [address] [place] [address], [place] CO2 [Moles/Vol] 30 mmol/L Normal 21-31 The [facility] Comment on above: Performed By: #### 0 0071, 56320 #### [facility] [address] [place] [address], [place] Creatinine [Mass/Vol] 0.77 mg/dL Normal 0.60-1.20 The [facility] Comment on above: Performed By: #### 0 0071, 71153 #### [facility] [address] [place] [address], [place] GFR/1.73 sq M.predicted among blacks MDRD (S/P/Bld) [Vol rate/Area] mL/min/{1.73_m2} Normal >60 The [facility] Comment on above: Performed By: #### 0 0071, 28247 #### [facility] [address] [place] [address], [place] GFR/1.73 sq M.predicted among non-blacks MDRD (S/P/Bld) [Vol rate/Area] mL/min/{1.73_m2} Normal >60 The [facility] Comment on above: Performed By: #### 0 0071, 37203 #### [facility] [address] [place] [address], [place] Glucose [Mass/Vol] 81 mg/dL Normal 70-100 The [facility] Comment on above: Performed By: #### 0 70, 51736 #### [facility] [address] [place] [address], [place] Potassium [Moles/Vol] 4.2 mmol/L Normal 3.5-5.1 The [facility] Comment on above: Performed By: #### 0 007, 02959 #### [facility] [address] [place] [address], [place] Sodium [Moles/Vol] 141 mmol/L Normal 136-145 The [facility] Comment on above: Performed By: #### 0 007, 89533 #### [facility] [address] [place] [address], [place] Urea nitrogen [Mass/Vol] 20 mg/dL Normal 7-25 The [facility] Comment on above: Performed By: #### 0 007, 13085 #### [facility] [address] [place] [address], [place] C REACTIVE PROTEINon 022 CRP [Mass/Vol] 1.7 mg/L Normal 0.0-7.0 The [facility] Comment on above: Performed By: #### 6 1405 #### [facility] [address] [place] [address], [place] HEMOGLOBIN A1Con 07-14-2021 Glucose [Moles/Vol] 114 mmol/L Normal The [facility] Comment on above: Performed By: #### 0 007, 92273 #### [facility] [address] [place] [address], [place] HbA1c (Bld) [Mass fraction] 5.6 % Normal 4.0-6.0 The [facility] Comment on above: Performed By: #### 0 70, 08718 #### [facility] [address] [place] [address], [place] SEDIMENTATION RATEon 022 SED RATE 6 mm/hr Normal 0-20 The [facility] Comment on above: Performed By: #### 0 0071, 31424 #### [facility] [address] TSH3on 07-14-2021 TSH 3RD GENERATION 1.94 uIU/mL Normal 0.34-5.60 The [facility] Comment on above: Performed By: #### 0 0071, 36247 #### [facility] [address] [place], [place] [id number] [place] [address] MRI CERVICAL SPINE WO CONTRA STon 06-27-2021 MRI CERVICAL SPINE WO CONTRAST [facility] Department of Radiology [address] [place], [place] [id number] ===== Patient Name: RHEA ALANIZ : 1960 Sex: F Age: Race: White Pt. Location: Patient Status: D Ordered Date: 06/16/2021 4:30:00 PM Completed Date: 06/27/2021 08:57 AM Requesting Provider: CALOS BEYER Attending Provider: Report Copy To: Signs & Symptoms: M54.12 Radiculopathy, cervical region I10 History: [place], PHONE:[phone],*NEE DS ORTHO F/U APPT. NO METAL Comments: [...] changes as detailed above. Electronically signed: Bernice aHnks. Transcribed by: [email or web address], User Resident: Electronically Signed by: BERNICE HANKS @ 06/28/2021 10:29 AM Normal The [facility] Comment on above: Order Comment: Evalu ate CERVICAL SPINE 4 OR 5 VIEWSo n 06-16-2021 CERVICAL SPINE 4 OR 5 VIEWS [facility] Department of Radiology [address] [place] [phone] ===== Patient Name: RHEA ALANIZ : [...] alignment. Electronically signed: Mary Norris. Transcribed by: [email or web address], User Resident: Electronically Signed by: MARY NORRIS @ 06/16/2021 01:23 PM Normal The [facility] Comment on above: Order Comment: Evalu ate CBC W/DIFFon 06-09-2021 ABS IMM GRANS 0.0 10*3/uL Normal 0.0-0.2 The [facility] Comment on above: Performed By: #### 5 0103 ####[facility] ABS NEUTROPHILS 3.7 10*3/uL Normal 1.6-7.6 The [facility] Comment on above: Performed By: #### 5 0103 ####[facility] [place] [address], [facility] Basophils (Bld) [#/Vol] 0.0 10*3/uL Normal 0.0-0.2 The [facility] Comment on above: Performed By: #### 5 0103 ####[facility] [facility] [place] [address], [facility] Basophils/100 WBC (Bld) 0.5 % Normal 0.0-1.0 The [facility] Comment on above: Performed By: #### 5 0103 ####[facility] [facility] [place] [address], [facility] Eosinophils (Bld) [#/Vol] 0.5 10*3/uL Normal 0.0-0.5 The [facility] Comment on above: Performed By: #### 5 0103 ####[facility] [facility].[address] Eosinophils/100 WBC (Bld) 8.3 % High 0.0-6.0 The [facility] Comment on above: Performed By: #### 5 0103 ####[facility] [facility].[address] Erythrocyte distribution width (RBC) [Ratio] 11.5 % Normal 11.5-15.0 The [facility] Comment on above: Performed By: #### 5 3 ####[facility] [facility].[address] Hematocrit (Bld) [Volume fraction] 40.7 % Normal 36.0-45.0 The [facility] Comment on above: Performed By: #### 5 3 ####[facility] [facility].[address] Hemoglobin (Bld) [Mass/Vol] 14.0 g/dL Normal 12.0-15.0 The [facility] Comment on above: Performed By: #### 5 3 ####[facility] [place], [place] [address] IMMATURE GRANS 0.2 % Normal 0.0-1.0 The [facility] Comment on above: Performed By: #### 5 0103 ####[facility] Lymphocytes (Bld) [#/Vol] 1.0 10*3/uL Low 1.2-4.0 The [facility] Comment on above: Performed By: #### 5 0103 ####[facility] Lymphocytes/100 WBC (Bld) 17.5 % Low 20.0-45.0 The [facility] Comment on above: Performed By: #### 5 0103 ####[address] MCH (RBC) [Entitic mass] 31.3 pg Normal 27.0-33.0 The [facility] Comment on above: Performed By: #### 5 0103 ####[facility] MCHC (RBC) [Mass/Vol] 34.4 g/dL Normal 32.0-35.0 The [facility] Comment on above: Performed By: #### 5 0103 ####[facility] MCV (RBC) [Entitic vol] 90.8 fL Normal 82.0-98.0 The [facility] Comment on above: Performed By: #### 5 3 ####[facility] [place] [address] Monocytes (Bld) [#/Vol] 0.4 10*3/uL Normal 0.1-1.0 The [facility] Comment on above: Performed By: #### 3 ####[facility] [place] [address] MONOS 7.4 % Normal 5.0-12.0 The [facility] Comment on above: Performed By: #### 5 0103 ####[facility] [facility] [place] [address], [facility] Neutrophils/100 WBC (Bld) 66.1 % Normal 40.0-72.0 The [facility] Comment on above: Performed By: #### 5 0103 ####[facility] [facility] [place] [address], [facility] Nucleated RBC/100 WBC (Bld) [Ratio] 0 % Normal 0-0 The [facility] Comment on above: Performed By: #### 5 0103 ####[facility] PLAT CNT 343 10*3/uL Normal 150-400 The [facility] Comment on above: Performed By: #### 5 0103 ####[facility] [place] [address], [facility] RBC (Bld) [#/Vol] 4.48 10*6/uL Normal 3.80-5.00 The [facility] Comment on above: Performed By: #### 5 0103 ####[facility] [facility] [place] [address], [facility] WBC (Bld) [#/Vol] 5.54 10*3/uL Normal 4.00-10.60 The [facility] Comment on above: Performed By: #### 5 0103 ####[facility] [facility].[address] COMP METABOLIC PANELon 06-09 Albumin [Mass/Vol] 4.6 g/dL Normal 3.5-5.7 The [facility] Comment on above: Performed By: #### 6 1405 #### [facility] [address] [facility] [place] [address], [facility] ALKALINE PHOSPH 53 IU/L Normal 34-104 The [facility] Comment on above: Performed By: #### 6 1405 #### [facility] [address] [place] [address], [facility] ALT [Catalytic activity/Vol] 7 U/L Normal 7-52 The [facility] Comment on above: Performed By: #### 6 1405 #### [facility] [address] [place] [address], [facility] AST [Catalytic activity/Vol] 11 U/L Low 13-39 The [facility] Comment on above: Performed By: #### 6 1405 #### [facility] [address] [place] [address], [facility] Bilirubin [Mass/Vol] 0.5 mg/dL Normal 0.3-1.0 The [facility] Comment on above: Performed By: #### 6 1405 #### [facility] [address] [place] [address], [facility] Calcium [Mass/Vol] 9.6 mg/dL Normal 8.6-10.3 The [facility] Comment on above: Performed By: #### 6 1405 #### [facility] [address] [place] [address], [facility] Chloride [Moles/Vol] 102 mmol/L Normal 98-107 The [facility] Comment on above: Performed By: #### 6 1405 #### [facility] [address] [place] [address], [place] CO2 [Moles/Vol] 27 mmol/L Normal 21-31 The [facility] Comment on above: Performed By: #### 6 1405 #### [facility] [address] [place] [address], [place] Creatinine [Mass/Vol] 0.90 mg/dL Normal 0.60-1.20 The [facility] Comment on above: Performed By: #### 6 1405 #### [facility] [address] [place] [address], [place] GFR/1.73 sq M.predicted among blacks MDRD (S/P/Bld) [Vol rate/Area] mL/min/{1.73_m2} Normal >60 The [facility] Comment on above: Performed By: #### 6 1405 #### [facility] [address] [place] [address], [place] GFR/1.73 sq M.predicted among non-blacks MDRD (S/P/Bld) [Vol rate/Area] mL/min/{1.73_m2} Normal >60 The [facility] Comment on above: Performed By: #### 6 1405 #### [facility] [address] [place] [address], [place] Glucose [Mass/Vol] 136 mg/dL High 70-100 The [facility] Comment on above: Performed By: #### 6 1405 #### [facility] [address] [place] [address], [place] Potassium [Moles/Vol] 3.6 mmol/L Normal 3.5-5.1 The [facility] Comment on above: Performed By: #### 6 1405 #### [facility] [address] [place] [address], [place] Protein [Mass/Vol] 6.8 g/dL Normal 6.0-8.3 The [facility] Comment on above: Performed By: #### 6 1405 #### [facility] [address] [place] [address], [place] Sodium [Moles/Vol] 138 mmol/L Normal 136-145 The [facility] Comment on above: Performed By: #### 6 1405 #### [facility] [address] [place] [address], [place] Urea nitrogen [Mass/Vol] 10 mg/dL Normal 7-25 The [facility] Comment on above: Performed By: #### 6 1405 #### [place] [address], [facility] PORTABLE CHEST 1 VIEWon 05-19 PORTABLE CHEST 1 VIEW [facility] Department of Radiology [address] [place] [phone] ===== Patient Name: RHEA ALANIZ : 1960 Sex: F Age: Race: White Pt. Location: [facility] Patient Status: E Ordered Date: 06/09/2021 10:55:00 AM Completed Date: 06/09/2021 11:24 AM Requesting Provider: RADHA TRUJILLO Attending Provider: RADHA TRUJILLO Report Copy To: Signs & Symptoms: Chest Pain History: Comments: Aspiration Exam: PORTABLE CHEST 1 VIEW ===== PORTABLE CHEST 1 VIEW CLINICAL INDICATION: Tremors, nausea vomiting. COMPARISON: 08/31/2020. IMPRESSION: 1. No acute cardiopulmonary abnormality. Electronically signed: Ross Deras. Transcribed by: [email or web address], User Resident: Electronically Signed by: ROSS DERAS @ 06/09/2021 11:49 AM Normal The [facility] Comment on above: Order Comment: Aspir ation TROPONIN-Ion 06-09-2021 Troponin I.cardiac [Mass/Vol] 0.00 ng/mL Normal 0.00-0.04 The [facility] Comment on above: Result Comment: REFE RENCE RANGES: 0.00 - 0.04 ng/ml NORMAL 0.05 - 0.50 ng/ml INDETERMINATE > 0.50 ng/ml CONSISTENT WITH AN M.I. Performed By: #### 6 1405 #### [facility] [address] [facility]. [address] Troponin I.cardiac [Mass/Vol] 0.00 ng/mL Normal 0.00-0.04 The [facility] Comment on above: Result Comment: REFJorge L SALOMON RANGES: 0.00 - 0.04 ng/ml NORMAL 0.05 - 0.50 ng/ml INDETERMINATE > 0.50 ng/ml CONSISTENT WITH AN M.I. Performed By: #### 6 1405 #### [facility] [address] [facility]. [address] Operative Reporton Operative Report MR#: [id number] S [facility] Pt. Name: Rhea Alaniz Room #: PMC [...] Navarro MD Date Trans: 03/30/2021 11:59 A/ DN_JN:[id number] cc: Ronald Samano M.D. [address] Internal Medicine [facility] [address] [facility] ANKLE RIGHT 3 Son 12-31-19 21 ANKLE RIGHT 3 S [facility] Department of Radiology [address] [place] [phone] ===== Patient Name: RHEA ALANIZ : 1960 Sex: F Age: Race: White Pt. Location: Patient Status: D Ordered Date: 12/30/2020 9:25:00 AM Completed Date: 12/30/2020 09:30 AM Requesting Provider: SUKH MCCLURE Attending Provider: JOANN KEENAN Report Copy To: Signs & Symptoms: M79.671 Pain in right foot I10 History: [place] Comments: standing Exam: ANKLE RIGHT 3 VWS ===== ANKLE RIGHT 3 [facility] CLINICAL INFORMATION: pt states having a lot [...] preserved. Electronically signed: Bernice Hanks. Transcribed by: [email or web address], User Resident: Electronically Signed by: BERNICE HANKS @ 12/31/2020 08:26 AM Normal The [facility] Comment on above: Order Comment: stand ing FOOT RIGHT 3 [facility] 1 FOOT RIGHT 3 [facility] Department of Radiology [address] [place] [phone] ===== Patient Name: REHA ALANIZ : 1960 Sex: F Age: Race: White Pt. Location: Patient Status: D Ordered Date: 12/30/2020 9:25:00 AM Completed Date: 12/30/2020 09:30 AM Requesting Provider: SUKH MCCLURE Attending Provider: JOANN KEENAN Report Copy To: Signs & Symptoms: M79.671 Pain in right foot I10 History: Comments: standing Exam: FOOT RIGHT 3 [facility] ===== FOOT RIGHT 3 VWS CLINICAL INFORMATION: [...] fibula. Electronically signed: Bernice Hanks. Transcribed by: [email or web address], User Resident: Electronically Signed by: BERNICE HANKS @ 12/31/2020 08:25 AM Normal The [facility] Comment on above: Order Comment: stand ing C REACTIVE PROTEINon 021 CRP [Mass/Vol] 2.1 mg/L Normal 0.0-7.0 The [facility] Comment on above: Performed By: #### 0 0071, 20295 #### [facility] [address] CBC W/DIFFon 12-24-2020 ABS IMM GRANS 0.0 10*3/uL Normal 0.0-0.2 The [facility] Comment on above: Performed By: #### 5 7856, 40180 ####[facility] ABS NEUTROPHILS 3.8 10*3/uL Normal 1.6-7.6 The [facility] Comment on above: Performed By: #### 5 1966, 99069 ####[facility] Basophils (Bld) [#/Vol] 0.0 10*3/uL Normal 0.0-0.2 The [facility] Comment on above: Performed By: #### 5 6506, 56697 ####[facility]3000 [facility] [place] [address], [facility] Basophils/100 WBC (Bld) 0.4 % Normal 0.0-1.0 The [facility] Comment on above: Performed By: #### 5 6505, 44322 ####[facility]3000 [facility] [place] [address], [facility] Eosinophils (Bld) [#/Vol] 0.4 10*3/uL Normal 0.0-0.5 The [facility] Comment on above: Performed By: #### 5 6505, 94462 ####[facility]3000 [facility] [place] [address], [facility] Eosinophils/100 WBC (Bld) 6.6 % High 0.0-6.0 The [facility] Comment on above: Performed By: #### 5 6505, 43990 ####[place] [address] [facility].[address] Erythrocyte distribution width (RBC) [Ratio] 11.9 % Normal 11.5-15.0 The [facility] Comment on above: Performed By: #### 5 6505, [address] ####[place] [address] [facility].[address] Hematocrit (Bld) [Volume fraction] 43.5 % Normal 36.0-45.0 The [facility] Comment on above: Performed By: #### 5 6505, 25311 ####[facility]3000 [facility] [place] [address], [facility] Hemoglobin (Bld) [Mass/Vol] 14.0 g/dL Normal 12.0-15.0 The [facility] Comment on above: Performed By: #### 5 6505, 22210 ####[address] [place] [address], [facility] IMMATURE GRANS 0.2 % Normal 0.0-1.0 The [facility] Comment on above: Performed By: #### 5 6505, 96692 ####[facility]3000 [facility].[address] Lymphocytes (Bld) [#/Vol] 1.0 10*3/uL Low 1.2-4.0 The [facility] Comment on above: Performed By: #### 5 6505, 29889 ####[facility]3000 [facility].[address] Lymphocytes/100 WBC (Bld) 17.8 % Low 20.0-45.0 The [facility] Comment on above: Performed By: #### 5 6505, 10666 ####[facility] [place] [address] MCH (RBC) [Entitic mass] 31.3 pg Normal 27.0-33.0 The [facility] Comment on above: Performed By: #### 5 6505, 53386 ####[facility] MCHC (RBC) [Mass/Vol] 32.2 g/dL Normal 32.0-35.0 The [facility] Comment on above: Performed By: #### 5 6505, 53073 ####[place] [address] [address] MCV (RBC) [Entitic vol] 97.3 fL Normal 82.0-98.0 The [facility] Comment on above: Performed By: #### 5 6505, 74410 ####[facility] [place] [address] Monocytes (Bld) [#/Vol] 0.3 10*3/uL Normal 0.1-1.0 The [facility] Comment on above: Performed By: #### 5 6505, 94994 ####[facility] [place] [address].[place] [address], [facility] MONOS 6.1 % Normal 5.0-12.0 The [facility] Comment on above: Performed By: #### 5 6505, 27288 ####[facility]3000 [facility] [place] [address], [facility] Neutrophils/100 WBC (Bld) 68.9 % Normal 40.0-72.0 The [facility] Comment on above: Performed By: #### 5 6505, 28172 ####[facility]3000 [facility] [place] [address], [facility] Nucleated RBC/100 WBC (Bld) [Ratio] 0 % Normal 0-0 The [facility] Comment on above: Performed By: #### 5 6505, 90573 ####[address] [place] [address], [facility] PLAT CNT 294 10*3/uL Normal 150-400 The [facility] Comment on above: Performed By: #### 5 6505, 10083 ####[place] [address] [facility] [place] [address], [facility] RBC (Bld) [#/Vol] 4.47 10*6/uL Normal 3.80-5.00 The [facility] Comment on above: Performed By: #### 5 6505, 43643 ####[facility]3000 [facility] [place] [address], [facility] WBC (Bld) [#/Vol] 5.57 10*3/uL Normal 4.00-10.60 The [facility] Comment on above: Performed By: #### 5 6505, 08878 ####[place] [address] [facility] [place] [address], [facility] SEDIMENTATION RATEon 021 SED RATE 10 mm/hr Normal 0-20 The [facility] Comment on above: Performed By: #### 5 6505, 94803 ####[facility] TIBIA FIBULA RIGHTon 021 TIBIA FIBULA RIGHT [facility] Department of Radiology [address] [place] [address] ===== Patient Name: RHEA ALANIZ [...] removal Electronically signed: Lissa Guerin. Transcribed by: [email or web address], User Resident: Electronically Signed by: LISSA GUERIN @ 12/25/2020 10:55 AM Normal The [facility] Comment on above: Order Comment: Views (X-RAY, TIBIA AND FIBULA): AP, Lateral TIBIA FIBULA RIGHTon 021 TIBIA FIBULA RIGHT [facility] Department of Radiology [address] [place] [phone] ===== Patient Name: RHEA ALANIZ : [...] report. Electronically signed: Rex Wagner. Transcribed by: [email or web address], User Resident: LATONYA LINO Electronically Signed by: REX WAGNER @ 12/17/2020 08:59 AM I personally read this/these film(s) with this resident Normal The [facility] Comment on above: Order Comment: evalu ate TIBIA FIBULA RIGHTon 021 TIBIA FIBULA RIGHT [facility] Department of Radiology [address] [place] [phone] ===== Patient Name: RHEA ALANIZ : [...] report. Electronically signed: Rex Wagner. Transcribed by: [email or web address], User Resident: LATONYA LINO Electronically Signed by: REX WAGNER @ 12/09/2020 12:00 PM I personally read this/these film(s) with this resident Normal The [facility] Comment on above: Order Comment: Evalu ate Operative Reporton Operative Report MR#: [id number] S [facility] Pt. Name: Rhea Alaniz Room #: 0C [...] allowed us to thread in the conical [place] tibial nail removal. Once this was secured, [...] Acuna MD Date Trans: 12/02/2020 11:23 P/mmo [id number] cc: Ronald Samano M.D. [address] [facility] Internal Medicine [place] [address] Normal The [facility] POC GLUCOSE LABon 12-02-2020 Glucose [Mass/Vol] 72 mg/dL Normal 70-100 The [facility] Comment on above: Performed By: #### 8 5499 #### [address] TIBIA FIBULA RIGHTon 021 TIBIA FIBULA RIGHT [facility] Department of Radiology [address] [place] [phone] ===== Patient Name: RHEA ALANIZ : [...] report. Electronically signed: Lissa Guerin. Transcribed by: [email or web address], User Resident: VELVET GREEN Electronically Signed by: LISSA GUERIN @ 12/02/2020 03:37 PM I personally read this/these film(s) with this resident Normal The [facility] Comment on above: Order Comment: HARDW ARE REMOVAL RIGHT TIBIAL NAIL *MRSA/MSSA DNA NASALon 11-27 *MRSA/MSSA DNA NASAL Clinical Report: (D ) Specimen: NASAL SWAB Collected: 11/27/2020 14:53 Status: Final Last Updated: 11/28/2020 06:13 MSSA DNA (Final) Negative MRSA DNA (Final) Methicillin Resistant Staphylococcus aureus DNA Detected Normal The [facility] Comment on above: Performed By: #### 3 1595 #### [facility] [address] [place] [address], [facility] APTTon 11-27-2020 aPTT Coag (Bld) [Time] 26.6 s Normal 25.0-35.0 The [facility] Comment on above: Result Comment: ALL RESULTS [...] THIS PURPOSE. Performed By: #### 0 0071, 83143 #### [facility] [address] [place] [address], [facility] BASIC METABOLIC PANELon 09- 0-2020 Calcium [Mass/Vol] 9.5 mg/dL Normal 8.6-10.3 The [facility] Comment on above: Performed By: #### 6 1405 #### [facility] [address] [place] [address], [facility] Chloride [Moles/Vol] 102 mmol/L Normal 98-107 The [facility] Comment on above: Performed By: #### 6 1405 #### [facility] [address] [place] [address], [place] CO2 [Moles/Vol] 29 mmol/L Normal 21-31 The [facility] Comment on above: Performed By: #### 6 1405 #### [facility] [address] [place] [address], [facility] Creatinine [Mass/Vol] 0.87 mg/dL Normal 0.60-1.20 The [facility] Comment on above: Performed By: #### 6 1405 #### [facility] [address] [place] [address], [place] GFR/1.73 sq M.predicted among blacks MDRD (S/P/Bld) [Vol rate/Area] mL/min/{1.73_m2} Normal >60 The [facility] Comment on above: Performed By: #### 6 1405 #### [facility] [address] [place] [address], [place] GFR/1.73 sq M.predicted among non-blacks MDRD (S/P/Bld) [Vol rate/Area] mL/min/{1.73_m2} Normal >60 The [facility] Comment on above: Performed By: #### 6 1405 #### [facility] [address] Glucose [Mass/Vol] 120 mg/dL High 70-100 The [facility] Comment on above: Performed By: #### 6 1405 #### [facility] [address] Potassium [Moles/Vol] 3.8 mmol/L Normal 3.5-5.1 The [facility] Comment on above: Performed By: #### 6 1405 #### [facility] [address] Sodium [Moles/Vol] 138 mmol/L Normal 136-145 The [facility] Comment on above: Performed By: #### 6 1405 #### [facility] 3000 [facility]. [address] Urea nitrogen [Mass/Vol] 12 mg/dL Normal 7-25 The [facility] Comment on above: Performed By: #### 6 1405 #### [facility] [address] CBC W/DIFFon 11-27-2020 ABS IMM GRANS 0.0 10*3/uL Normal 0.0-0.2 The [facility] Comment on above: Performed By: #### 5 0103 ####[facility]3000 [facility] [place] [address], [facility] ABS NEUTROPHILS 2.4 10*3/uL Normal 1.6-7.6 The [facility] Comment on above: Performed By: #### 5 0103 ####[facility]3000 [facility] [place] [address], [facility] Basophils (Bld) [#/Vol] 0.1 10*3/uL Normal 0.0-0.2 The [facility] Comment on above: Performed By: #### 5 0103 ####[facility] [place] [address], [facility] Basophils/100 WBC (Bld) 1.1 % High 0.0-1.0 The [facility] Comment on above: Performed By: #### 5 0103 ####[facility] [place] [address], [facility] Eosinophils (Bld) [#/Vol] 0.3 10*3/uL Normal 0.0-0.5 The [facility] Comment on above: Performed By: #### 102 ####[place] [address] [facility] [place] [address], [facility] Eosinophils/100 WBC (Bld) 7.2 % High 0.0-6.0 The [facility] Comment on above: Performed By: #### 3 ####[facility]3000 [facility].[address] Erythrocyte distribution width (RBC) [Ratio] 12.0 % Normal 11.5-15.0 The [facility] Comment on above: Performed By: #### 3 ####[facility]3000 [facility].[address] Hematocrit (Bld) [Volume fraction] 41.3 % Normal 36.0-45.0 The [facility] Comment on above: Performed By: #### 5 3 ####[facility]3000 [facility] [place] [address], [facility] Hemoglobin (Bld) [Mass/Vol] 13.9 g/dL Normal 12.0-15.0 The [facility] Comment on above: Performed By: #### 5 3 ####[facility] IMMATURE GRANS 0.4 % Normal 0.0-1.0 The [facility] Comment on above: Performed By: #### 5 0103 ####[facility] Lymphocytes (Bld) [#/Vol] 1.4 10*3/uL Normal 1.2-4.0 The [facility] Comment on above: Performed By: #### 5 3 ####[facility] Lymphocytes/100 WBC (Bld) 29.8 % Normal 20.0-45.0 The [facility] Comment on above: Performed By: #### 5 102 ####[address] MCH (RBC) [Entitic mass] 31.7 pg Normal 27.0-33.0 The [facility] Comment on above: Performed By: #### 102 ####[place] [address] [address] MCHC (RBC) [Mass/Vol] 33.7 g/dL Normal 32.0-35.0 The [facility] Comment on above: Performed By: #### 3 ####[facility] MCV (RBC) [Entitic vol] 94.1 fL Normal 82.0-98.0 The [facility] Comment on above: Performed By: #### 5 3 ####[address] Monocytes (Bld) [#/Vol] 0.4 10*3/uL Normal 0.1-1.0 The [facility] Comment on above: Performed By: #### 5 3 ####[address] [place] [address], [facility] MONOS 8.5 % Normal 5.0-12.0 The [facility] Comment on above: Performed By: #### 5 0103 ####[facility]3000 [facility] [place] [address], [facility] Neutrophils/100 WBC (Bld) 53.0 % Normal 40.0-72.0 The [facility] Comment on above: Performed By: #### 5 0103 ####[facility] [place] [address], [facility] Nucleated RBC/100 WBC (Bld) [Ratio] 0 % Normal 0-0 The [facility] Comment on above: Performed By: #### 5 0103 ####[place] [address], [facility] PLAT CNT 306 10*3/uL Normal 150-400 The [facility] Comment on above: Performed By: #### 5 0103 ####[facility] [place] [address], [facility] RBC (Bld) [#/Vol] 4.39 10*6/uL Normal 3.80-5.00 The [facility] Comment on above: Performed By: #### 5 0103 ####[address] [address], [facility] WBC (Bld) [#/Vol] 4.59 10*3/uL Normal 4.00-10.60 The [facility] Comment on above: Performed By: #### 5 3 ####[address] [address], [facility] NM 3 PHASE BONE SCANon 11-27 NM 3 PHASE BONE SCAN [facility] Department of Radiology [address] [place] [id number] ===== Patient Name: RHEA ALANIZ : 1960 [...] uptake. Electronically signed: Keya Foreman. Transcribed by: [email or web address], User Resident: Electronically Signed by: KEYA FOREMAN @ 11/27/2020 01:58 PM Normal The [facility] Comment on above: Order Comment: Right knee (focus on tibial hardware) to ankle. Please include entire leg on delayed imaging PROTHROMBIN TIMEon INR Coag (PPP) [Relative time] 0.95 {INR} Normal 0.91-1.16 The [facility] Comment on above: Result Comment: ACCC P [...] CHEST 1995;108:[id number]. Performed By: #### 0 007, 68263 #### [facility] [address] [place] [address], [facility] PT Coag (PPP) [Time] 12.7 s Normal 12.3-14.8 The [facility] Comment on above: Result Comment: ALL RESULTS MUST BE INTERPRETED WITH RESPECT TO BLOOD DRAWING ARTIFACT OR DILUTION ERROR OF ANTICOAGULANT AT THE TIME OF SAMPLING. Performed By: #### 0 152, 28707 #### [facility] [address] [place] [address], [facility] BASIC METABOLIC PANELon Calcium [Mass/Vol] 9.7 mg/dL Normal 8.6-10.3 The [facility] Comment on above: Performed By: #### 6 1405 #### [facility] [address] [place] [address], [facility] Chloride [Moles/Vol] 105 mmol/L Normal 98-107 The [facility] Comment on above: Performed By: #### 6 1405 #### [facility] [address] [place] [address], [facility] CO2 [Moles/Vol] 29 mmol/L Normal 21-31 The [facility] Comment on above: Performed By: #### 6 1405 #### [facility] [address] [facility] [place] [address], [facility] Creatinine [Mass/Vol] 0.95 mg/dL Normal 0.60-1.20 The [facility] Comment on above: Performed By: #### 6 1405 #### [facility] [address] [place] [address], [place] GFR/1.73 sq M.predicted among blacks MDRD (S/P/Bld) [Vol rate/Area] mL/min/{1.73_m2} Normal >60 The [facility] Comment on above: Performed By: #### 6 1405 #### [facility] [address] [facility] [place] [address], [place] GFR/1.73 sq M.predicted among non-blacks MDRD (S/P/Bld) [Vol rate/Area] mL/min/{1.73_m2} Normal >60 The [facility] Comment on above: Performed By: #### 6 1405 #### [facility] [address] [facility] [place] [address], [place] Glucose [Mass/Vol] 92 mg/dL Normal 70-100 The [facility] Comment on above: Performed By: #### 6 1405 #### [facility] [address] [facility] Potassium [Moles/Vol] 3.8 mmol/L Normal 3.5-5.1 The [facility] Comment on above: Performed By: #### 6 1405 #### [facility] 3000 [facility] [place] [address], [facility] Sodium [Moles/Vol] 140 mmol/L Normal 136-145 The [facility] Comment on above: Performed By: #### 6 1405 #### [facility] 3000 [facility]. [address] Urea nitrogen [Mass/Vol] 10 mg/dL Normal 7-25 The [facility] Comment on above: Performed By: #### 6 1405 #### [facility] [address] C REACTIVE PROTEINon 021 CRP [Mass/Vol] 1.1 mg/L Normal 0.0-7.0 The [facility] Comment on above: Performed By: #### 6 1405 #### [facility] [address] [facility] [place] [address], [facility] CBC W/DIFFon 11-18-2020 ABS IMM GRANS 0.0 10*3/uL Normal 0.0-0.2 The [facility] Comment on above: Performed By: #### 5 5106, 57207 ####[facility] ABS NEUTROPHILS 2.9 10*3/uL Normal 1.6-7.6 The [facility] Comment on above: Performed By: #### 5 1536, 38690 ####[facility] [place] [address], [facility] Basophils (Bld) [#/Vol] 0.0 10*3/uL Normal 0.0-0.2 The [facility] Comment on above: Performed By: #### 5 6506, 72462 ####[facility] [facility] [place] [address], [facility] Basophils/100 WBC (Bld) 0.6 % Normal 0.0-1.0 The [facility] Comment on above: Performed By: #### 5 6505, 19182 ####[facility] [facility] [place] [address], [facility] Eosinophils (Bld) [#/Vol] 0.5 10*3/uL Normal 0.0-0.5 The [facility] Comment on above: Performed By: #### 5 6505, 20009 ####[place] [address] [facility] [place] [address], [facility] Eosinophils/100 WBC (Bld) 9.9 % High 0.0-6.0 The [facility] Comment on above: Performed By: #### 5 6505, 04272 ####[address] Erythrocyte distribution width (RBC) [Ratio] 12.3 % Normal 11.5-15.0 The [facility] Comment on above: Performed By: #### 5 6505, 20029 ####[place] [address] [facility].[address] Hematocrit (Bld) [Volume fraction] 40.8 % Normal 36.0-45.0 The [facility] Comment on above: Performed By: #### 5 6505, 21126 ####[facility] [facility].[address] Hemoglobin (Bld) [Mass/Vol] 13.8 g/dL Normal 12.0-15.0 The [facility] Comment on above: Performed By: #### 5 6505, 80456 ####[address] IMMATURE GRANS 0.4 % Normal 0.0-1.0 The [facility] Comment on above: Performed By: #### 5 6505, 39200 ####[facility] [facility].[address] Lymphocytes (Bld) [#/Vol] 1.0 10*3/uL Low 1.2-4.0 The [facility] Comment on above: Performed By: #### 5 6505, 77827 ####[facility] [facility].[address] Lymphocytes/100 WBC (Bld) 20.2 % Normal 20.0-45.0 The [facility] Comment on above: Performed By: #### 5 6505, 40287 ####[address] MCH (RBC) [Entitic mass] 31.7 pg Normal 27.0-33.0 The [facility] Comment on above: Performed By: #### 5 6505, 61083 ####[address] MCHC (RBC) [Mass/Vol] 33.8 g/dL Normal 32.0-35.0 The [facility] Comment on above: Performed By: #### 5 6505, 98414 ####[place] [address] [facility].[address] MCV (RBC) [Entitic vol] 93.8 fL Normal 82.0-98.0 The [facility] Comment on above: Performed By: #### 5 6505, 54573 ####[facility] [place] [address].[address] Monocytes (Bld) [#/Vol] 0.4 10*3/uL Normal 0.1-1.0 The [facility] Comment on above: Performed By: #### 5 6505, 24180 ####[facility] [place] [address] MONOS 8.5 % Normal 5.0-12.0 The [facility] Comment on above: Performed By: #### 5 6506, 72836 ####[facility] [facility] [place] [address], [facility] Neutrophils/100 WBC (Bld) 60.4 % Normal 40.0-72.0 The [facility] Comment on above: Performed By: #### 5 6505, 03039 ####[facility] [facility] [place] [address], [facility] Nucleated RBC/100 WBC (Bld) [Ratio] 0 % Normal 0-0 The [facility] Comment on above: Performed By: #### 5 650, 68677 ####[facility] [facility] [place] [address], [facility] PLAT CNT 260 10*3/uL Normal 150-400 The [facility] Comment on above: Performed By: #### 5 650, 15469 ####[facility] [facility] [place] [address], [facility] RBC (Bld) [#/Vol] 4.35 10*6/uL Normal 3.80-5.00 The [facility] Comment on above: Performed By: #### 5 6506, 38519 ####[facility] [facility] [place] [address], [facility] WBC (Bld) [#/Vol] 4.85 10*3/uL Normal 4.00-10.60 The [facility] Comment on above: Performed By: #### 5 6506, 01522 ####[address] [place] [address], [facility] KNEE RIGHT 3 Son 1 KNEE RIGHT 3 S [facility] Department of Radiology [address] [place] [address] ===== Patient Name: RHEA ALANIZ [...] above Electronically signed: Lissa Guerin. Transcribed by: [id number], User Resident: Electronically Signed by: LISSA GUERIN @ 11/18/2020 12:59 PM Normal The [facility] Comment on above: Order Comment: Evalu ate SEDIMENTATION RATEon 021 SED RATE 4 mm/hr Normal 0-20 [facility] Comment on above: Performed By: #### 5 6506, 23286 ####[facility]3000 [facility] CENTERMaria [place]isa[place], [place] [address] [place] [address] TIBIA FIBULA RIGHTon 021 TIBIA FIBULA RIGHT [facility] Department of Radiology [address] [place] [address] ===== Patient Name: RHEA ALANIZ : 1960 Sex: F Age: Race: White Pt. Location: Patient Status: O Ordered Date: 11/18/2020 10:05:00 AM Completed Date: 11/18/2020 10:24 AM Requesting Provider: JOANN KEENAN Attending Provider: JOANN KEENAN Report Copy To: Signs & Symptoms: M79.604 Pain in right leg I10 History: [place] Comments: Evaluate Exam: TIBIA FIBULA RIGHT ===== [...] history Electronically signed: Lissa Guerin. Transcribed by: [id number], User Resident: Electronically Signed by: LISSA GUERIN @ 11/18/2020 12:58 PM Normal The [facility] Comment on above: Order Comment: Evalu ate VITAMIN D 25-HYDROXYon 11-18 VITAMIN D 25-OH 42.7 ng/mL Normal 30.0-80.0 The [facility] Comment on above: Result Comment: >80. 0 Toxicity possible Performed By: #### 6 1405 #### [facility] [address] [facility] [place] [address], [facility] CBC W/DIFFon 09-30-2020 ABS IMM GRANS 0.0 10*3/uL Normal 0.0-0.2 The [facility] Comment on above: Performed By: #### 5 0103 ####[facility] [facility] [place] [address], [facility] ABS NEUTROPHILS 2.5 10*3/uL Normal 1.6-7.6 The [facility] Comment on above: Performed By: #### 5 0103 ####[facility] [facility] [place] [place] [address], [facility] Basophils (Bld) [#/Vol] 0.0 10*3/uL Normal 0.0-0.2 The [facility] Comment on above: Performed By: #### 5 0103 ####[facility] [facility] [place] [place] [address], [facility] Basophils/100 WBC (Bld) 0.7 % Normal 0.0-1.0 The [facility] Comment on above: Performed By: #### 5 0103 ####[facility] [facility] [place] [place] [address], [facility] Eosinophils (Bld) [#/Vol] 0.3 10*3/uL Normal 0.0-0.5 The [facility] Comment on above: Performed By: #### 5 0103 ####[facility] [facility] [place] [place] [address], [facility] Eosinophils/100 WBC (Bld) 6.6 % High 0.0-6.0 The [facility] Comment on above: Performed By: #### 5 0103 ####[facility] Erythrocyte distribution width (RBC) [Ratio] 12.5 % Normal 11.5-15.0 The [facility] Comment on above: Performed By: #### 5 0103 ####[facility] Hematocrit (Bld) [Volume fraction] 40.2 % Normal 36.0-45.0 The [facility] Comment on above: Performed By: #### 3 ####[facility] [place] [address] Hemoglobin (Bld) [Mass/Vol] 13.0 g/dL Normal 12.0-15.0 [facility] Comment on above: Performed By: #### 5 0103 ####[facility] IMMATURE GRANS 0.2 % Normal 0.0-1.0 The [facility] Comment on above: Performed By: #### 5 3 ####[place] [address] Lymphocytes (Bld) [#/Vol] 1.2 10*3/uL Normal 1.2-4.0 [facility] Comment on above: Performed By: #### 3 ####[facility] Lymphocytes/100 WBC (Bld) 27.7 % Normal 20.0-45.0 [facility] Comment on above: Performed By: #### 5 3 ####[facility] MCH (RBC) [Entitic mass] 31.0 pg Normal 27.0-33.0 [facility] Comment on above: Performed By: #### 5 0103 ####[facility] MCHC (RBC) [Mass/Vol] 32.3 g/dL Normal 32.0-35.0 [facility] Comment on above: Performed By: #### 5 0103 ####[facility] MCV (RBC) [Entitic vol] 95.7 fL Normal 82.0-98.0 [facility] Comment on above: Performed By: #### 5 0103 ####[facility] Monocytes (Bld) [#/Vol] 0.4 10*3/uL Normal 0.1-1.0 [facility] Comment on above: Performed By: #### 5 0103 ####[facility] MONOS 9.1 % Normal 5.0-12.0 [facility] Comment on above: Performed By: #### 5 3 ####[facility] Neutrophils/100 WBC (Bld) 55.7 % Normal 40.0-72.0 [facility] Comment on above: Performed By: #### 5 3 ####[facility] Nucleated RBC/100 WBC (Bld) [Ratio] 0 % Normal 0-0 [facility] Comment on above: Performed By: #### 5 102 ####[facility] [place] [address], [facility] PLAT CNT 261 10*3/uL Normal 150-400 [facility] Comment on above: Performed By: #### 5 0103 ####[facility] [place] [address], [facility] RBC (Bld) [#/Vol] 4.20 10*6/uL Normal 3.80-5.00 [facility] Comment on above: Performed By: #### 5 0103 ####[facility] [place] [address], [facility] WBC (Bld) [#/Vol] 4.40 10*3/uL Normal 4.00-10.60 [facility] Comment on above: Performed By: #### 5 0103 ####[facility] [facility] [place] [address], [facility] FERRITINon 09-30-2020 Ferritin [Mass/Vol] 63 ng/mL Normal 11-307 [facility] Comment on above: Performed By: #### 8 4046, 33917, 96566, 54319 ####[facility]3000 [facility].[address] FOLATE SERUMon 09-30-2020 SERUM FOLATE 15.05 ng/mL Normal 6.60-1000.00 The [facility] Comment on above: Result Comment: Norm al range reflects World Health Organization International Standard /178 Performed By: #### 8 4046, 85038, 61795, 79599 ####[facility] HEMOGLOBIN A1Con 09-30-2020 Glucose [Moles/Vol] 114 mmol/L Normal The [facility] Comment on above: Performed By: #### 6 1405 #### [facility] [address] [place] [address], [facility] HbA1c (Bld) [Mass fraction] 5.6 % Normal 4.0-6.0 The [facility] Comment on above: Performed By: #### 6 1405 #### [facility] [address] TIBC- INCLUDES IRONon 2020 FE SATURATION 20 % Normal 20-50 [facility] Comment on above: Performed By: #### 8 4046, 90672, 87651, 58591 ####[facility]3000 [facility].[address] Iron [Mass/Vol] 64 ug/dL Normal 50-212 [facility] Comment on above: Performed By: #### 8 4046, 04987, 53830, 68821 ####[facility]3000 [facility].[address] TIBC 322 mcg/dL Normal 250-450 [facility] Comment on above: Performed By: #### 8 4046, 60352, 89624, 82988 ####[facility]3000 [facility].[address] UIBC 258 mcg/dL Normal 155-355 [facility] Comment on above: Performed By: #### 8 4046, 76618, 06922, 68801 ####[facility]3000 [facility].[address] VITAMIN B12on 09-30-2020 Cobalamin (Vitamin B12) [Mass/Vol] 202 pg/mL Normal 180-914 [facility] Comment on above: Result Comment: REFE RENCE RANGES: 180-914 pg/mL Normal 145-179 pg/mL Indeterminate <145 pg/mL Deficient Performed By: #### 8 4046, 23347, 42688, 01578 ####[facility]3000 [facility].[address] VITAMIN B6 (PYRIDOXINE) 8011 1on 09-30-2020 VITAMIN B6 73.0 nmol/L Normal 20.0-125.0 [facility] Comment on above: Result Comment: INTE RPRETIVE INFORMATION: Vitamin B6 (Pyridoxal 5-Phosphate) Pyridoxal 5'-phosphate measured in a specimen collected following an 8-hour or overnight fast accurately indicates vitamin B6 nutritional status. Non-fasting specimen concentration reflects recent vitamin intake. This test was developed and its performance characteristics determined by [facility]. It has not been cleared or approved by the [place] Food and Drug Administration. This test was performed in a CLIA certified laboratory and is intended for clinical purposes. Performed By: [facility] [address] [place] [id number] Greeting Card Writer: Odalis Adame MD CTA ABDOMEN AND PELVISon CTA ABDOMEN AND PELVIS [facility] Department of Radiology [address] [place] [address] ===== Patient Name: RHEA ALANIZ : 1960 Sex: F Age: Race: White Pt. 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 Transcribed by: [id number], User Resident: Electronically Signed by: BIENVENIDO CHAPMAN @ 09/30/2020 10:49 AM Normal [facility] Comment on above: Order Comment: also for diverticulitis from a different physician Basic Metabolic Profon 08-06 (cont.) Normal [facility] Comment on above: Result Comment: Aver age GFR for 50-59 years old: 93 mL/min/1.73sq mChronic Kidney Disease: <60 mL/min/1.73sq mKidney failure: <15 mL/min/1.73sq meGFR calculated using average adult body mass. Additional eGFR calculator available at:http://[email or web address] Maid/multiple_crcl_[email or web address] [address] Performed By: #### C DP, BMP, LIVP, EDTOX ####[address] [address] Anion gap 14 mmol/L Normal 9-17 [facility] Comment on above: Performed By: #### C DP, BMP, LIVP, EDTOX ####[address] [address] Calcium 9.0 mg/dL Normal 8.6-10.4 [facility] Comment on above: Performed By: #### C DP, BMP, LIVP, EDTOX ####[address] [address] Chloride 101 mmol/L Normal 98-107 [facility] Comment on above: Performed By: #### C DP, BMP, LIVP, EDTOX ####[address] [address] CO2 23 mmol/L Normal 20-31 [facility] Comment on above: Performed By: #### C DP, BMP, LIVP, EDTOX ####[address] [address] Creatinine 0.89 mg/dL Normal 0.50-0.90 [facility] Comment on above: Performed By: #### C DP, BMP, LIVP, EDTOX ####[address] [address] eGFR (non-black) mL/min/{1.73_m2} Normal >60 [facility] Comment on above: Performed By: #### C DP, BMP, LIVP, EDTOX ####[address] [address] Glucose mass conc 178 mg/dL High 70-99 [facility] Comment on above: Performed By: #### C DP, BMP, LIVP, EDTOX ####[address] [address] Potassium molar conc 3.8 mmol/L Normal 3.7-5.3 [facility] Comment on above: Performed By: #### C DP, BMP, LIVP, EDTOX ####[address] [address] Sodium 138 mmol/L Normal 135-144 [facility] Comment on above: Performed By: #### C DP, BMP, LIVP, EDTOX ####[address] [address] Urea nitrogen 16 mg/dL Normal 6-20 [facility] Comment on above: Performed By: #### C DP, BMP, LIVP, EDTOX ####[address] [address] BUN/CRE Ratio NOT REPORTED Normal -20 [facility] Comment on above: Performed By: #### C DP, BMP, LIVP, EDTOX ####[address] [address] Staging: NOT REPORTED Normal [facility] Comment on above: Performed By: #### C DP, BMP, LIVP, EDTOX ####[address] [address] CBC with Diffon 08-06-2017 Abs. Basophil <0.03 Normal 0.00-0.20 [facility] Comment on above: Performed By: #### C DP, BMP, LIVP, EDTOX ####[place] [address] [place] [address] Abs.Neutrophil (Seg) 8.37 k/uL High 1.50-8.10 [facility] Comment on above: Performed By: #### C DP, BMP, LIVP, EDTOX ####[address] [address] Basophils/100 WBC Auto (Bld) 0 % Normal 0-2 [facility] Comment on above: Performed By: #### C DP, BMP, LIVP, EDTOX ####[address] [address] Eosinophils 10*3/uL Normal 0.00-0.44 [facility] Comment on above: Performed By: #### C DP, BMP, LIVP, EDTOX ####[address] [address] Eosinophils/100 leukocytes 0 % Low 1-4 [facility] Comment on above: Performed By: #### C DP, BMP, LIVP, EDTOX ####[address] [address] Erythrocyte distribution width Auto Ratio (RBC) 12.5 % Normal 11.8-14.4 [facility] Comment on above: Performed By: #### C DP, BMP, LIVP, EDTOX ####[address] [address] Erythrocytes (RBC) 0.0 per 100 WBC Normal 0.0 [facility] Comment on above: Performed By: #### C DP, BMP, LIVP, EDTOX ####[address] [address] Erythrocytes (RBC) 4.37 10*6/uL Normal 3.95-5.11 [facility] Comment on above: Performed By: #### C DP, BMP, LIVP, EDTOX ####[address] [address] Granulocytes/100 WBC (Bld) 0.04 k/uL Normal 0.00-0.30 [facility] Comment on above: Result Comment: [address] [address] Performed By: #### C DP, BMP, LIVP, EDTOX ####[address] [address] Hematocrit (HCT) 41.3 % Normal 36.3-47.1 [facility] Comment on above: Performed By: #### C DP, BMP, LIVP, EDTOX ####[address] [address] Hemoglobin mass conc (Bld) 13.4 g/dL Normal 11.9-15.1 [facility] Comment on above: Performed By: #### C DP, BMP, LIVP, EDTOX ####[address] [address] Immature granulocytes #/vol (Bld) 0 % Normal 0 [facility] Comment on above: Performed By: #### C DP, BMP, LIVP, EDTOX ####[address] [address] Lymphocytes 0.81 10*3/uL Low 1.10-3.70 [facility] Comment on above: Performed By: #### C DP, BMP, LIVP, EDTOX ####[address] [address] Lymphocytes/100 leukocytes 8 % Low 24-43 [facility] Comment on above: Performed By: #### C DP, BMP, LIVP, EDTOX ####[address] [address] MCH 30.7 pg Normal 25.2-33.5 [facility] Comment on above: Performed By: #### C DP, BMP, LIVP, EDTOX ####[address] [address] MCHC mass conc (RBC) 32.4 g/dL Normal 28.4-34.8 [facility] Comment on above: Performed By: #### C DP, BMP, LIVP, EDTOX ####[address] [address] MCV 94.5 fL Normal 82.6-102.9 [facility] Comment on above: Performed By: #### C DP, BMP, LIVP, EDTOX ####[address] [address] Monocytes 0.70 10*3/uL Normal 0.10-1.20 [facility] Comment on above: Performed By: #### C DP, BMP, LIVP, EDTOX ####[address] [address] Monocytes/100 leukocytes 7 % Normal 3-12 [facility] Comment on above: Performed By: #### C DP, BMP, LIVP, EDTOX ####[address] [address] Neutrophil (Seg) 85 % High 36-65 [facility] Comment on above: Performed By: #### C DP, BMP, LIVP, EDTOX ####[address] [address] Platelet mean volume (PMV) 9.5 fL Normal 8.1-13.5 [facility] Comment on above: Performed By: #### C DP, BMP, LIVP, EDTOX ####[address] [place] [address] Platelets 253 10*3/uL Normal 138-453 [facility] Comment on above: Performed By: #### C DP, BMP, LIVP, EDTOX ####[address] [address] WBC (Leukocytes) 10.0 10*3/uL Normal 3.5-11.3 [facility] Comment on above: Performed By: #### C DP, BMP, LIVP, EDTOX ####[address] [address] Auto Diff Performed NOT REPORTED Normal [facility] Comment on above: Performed By: #### C DP, BMP, LIVP, EDTOX ####[address] [address] Erythrocyte morphology NOT REPORTED Normal [facility] Comment on above: Performed By: #### C DP, BMP, LIVP, EDTOX ####[address] [address] Platelets NOT REPORTED Normal [facility] Comment on above: Performed By: #### C DP, BMP, LIVP, EDTOX ####[address] [address] WBC Morphology NOT REPORTED Normal [facility] Comment on above: Performed By: #### C DP, BMP, LIVP, EDTOX ####[address] [address] Creatine Kinaseon 08-06-2017 Creatine kinase (CK) 117 U/L Normal 26-192 [facility] Comment on above: Result Comment: [address] [address] Performed By: #### T ROPI, CK ####[address] [address] Discharge Summaryon 08-07-19 18 HIM IP Note OR Regional Engineer Normal [facility] ED Noteon 08-06-2017 HIM IP Note OR Regional Engineer Normal [facility] History and Physicalon 08-06 HIM IP Note OR Regional Engineer Normal [facility] Liver Profileon 08-06-2017 Alanine aminotransferase (ALT) 14 U/L Normal 5-33 [facility] Comment on above: Performed By: #### C DP, BMP, LIVP, EDTOX ####[facility] [address] [place] [address] Albumin 4.6 g/dL Normal 3.5-5.2 [facility] Comment on above: Performed By: #### C DP, BMP, LIVP, EDTOX ####[address] [address] Albumin/Globulin Ratio 1.8 {ratio} Normal 1.0-2.5 [facility] Comment on above: Result Comment: [id number] [place] [address] Performed By: #### C DP, BMP, LIVP, EDTOX ####[facility] [address] [place] [address] Alkaline Phos 62 U/L Normal 35-104 [facility] Comment on above: Performed By: #### C DP, BMP, LIVP, EDTOX ####[facility] [address] [place] [address] Aspartate aminotransferase (AST) 14 U/L Normal <32 [facility] Comment on above: Performed By: #### C DP, BMP, LIVP, EDTOX ####[facility] [address] [place] [address] Bilirubin (direct) 0.12 mg/dL Normal <0.31 [facility] Comment on above: Performed By: #### C DP, BMP, LIVP, EDTOX ####[facility] [address] [place] [address] Bilirubin Ql (U) 0.37 mg/dL Normal 0.3-1.2 [facility] Comment on above: Performed By: #### C DP, BMP, LIVP, EDTOX ####[facility] [address] [place] [address] Bilirubin, Indirect 0.25 mg/dL Normal 0.00-1.00 [facility] Comment on above: Performed By: #### C DP, BMP, LIVP, EDTOX ####[facility] [address] [place] [address] Protein 7.1 g/dL Normal 6.4-8.3 [facility] Comment on above: Performed By: #### C DP, BMP, LIVP, EDTOX ####[facility] [address] [place] [address] Globulin NOT REPORTED Normal 1.5-3.8 [facility] Comment on above: Performed By: #### C DP, BMP, LIVP, EDTOX ####[facility] [address] [place] [address] Plan of Careon 08-06-2017 HIM IP Note OR Regional Engineer Normal [facility] HIM IP Note OR Regional Engineer Normal [facility] Progress Noteon 08-06-2017 HIM IP Note OR Regional Engineer Normal [facility] HIM IP Note OR Regional Engineer Normal [facility] Tox Scr, Bld, EDon 8 Acetaminophen mass conc <5 Low 10-30 [facility] Comment on above: Performed By: #### C DP, BMP, LIVP, EDTOX ####[facility] [address] [place] [address] Salicylate <1 Low 3-10 [facility] Comment on above: Performed By: #### C DP, BMP, LIVP, EDTOX ####[address] [address] Ethanol mg/dL Normal <10 [facility] Comment on above: Performed By: #### C DP, BMP, LIVP, EDTOX ####[address] [address] Ethanol percent <0.010 Normal [facility] Comment on above: Performed By: #### C DP, BMP, LIVP, EDTOX ####[address] [address] Toxic Tricyclic Sc,Bl Negative Normal NEG [facility] Comment on above: Result Comment: [facility] [address] [place] [address] Performed By: #### C DP, BMP, LIVP, EDTOX ####[address] [address] Troponinon 08-06-2017 Troponin I.cardiac mass conc Normal [facility] Comment on above: Result Comment: Refe rence Range: <0.03 Within reference range. 0.03-0.09 Possible myocardial damage.Repeat at appropriate intervals to rule out chronic elevation. >= 0.10 Indicative of myocardial damage.Patients with high levels of Biotin oral intake (i.e >5mg/day) may have falsely decreased Troponin T levels. Samples collected within 8 hours of biotin intake may require additional information for diagnosis.[facility] [address] [place] [address] Performed By: #### T CYNTHIA CK ####[address] [address] Troponin T.cardiac mass conc ug/L Normal <0.03 [facility] Comment on above: Result Comment: Trop onin T results cannot be compared to Troponin-I results. Performed By: #### T CYNTHIA, CK ####[address] [address] [place] [address] Troponin I.cardiac mass conc Normal [facility] Comment on above: Result Comment: Refe rence Range: <0.03 Within reference range. 0.03-0.09 Possible myocardial damage.Repeat at appropriate intervals to rule out chronic elevation. >= 0.10 Indicative of myocardial damage.Patients with high levels of Biotin oral intake (i.e >5mg/day) may have falsely decreased Troponin T levels. Samples collected within 8 hours of biotin intake may require additional information for diagnosis.[facility] [address] [place] [address] Performed By: #### T ROPI ####[facility] [place] [address] Troponin T.cardiac mass conc ug/L Normal <0.03 [facility] Comment on above: Result Comment: Trop onin T results cannot be compared to Troponin-I results. 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 Normal [facility] Encounters Encounter Date Encounter Type Care Provider Facility Start: 05-31-2023 End: 05-31-2023 ambulatory RONALD N NUCOS [facility] Start: 05-12-2023 End: 05-12-2023 [facility] Start: 04-28-2023 End: 04-28-2023 [facility] Start: 04-28-2023 End: 04-28-2023 [facility] Start: 04-14-2023 ambulatory RONALD NUCKLOS [facility] Start: 04-14-2023 End: 04-14-2023 ambulatory RONALD N [facility] Start: 02-06-2023 ambulatory [id number] H CHANDRA [facility] Start: 09-03-2022 End: 09-03-[address] [facility] Start: 09-02-2022 ambulatory ALEXSANDRA JOHNSTON [facility] Start: 08-24-2022 End: 08-24-[address] [facility] Start: 07-29-2022 End: 07-29-[address] RAFAEL OZUNA . Facility: Start: 07-28-2022 End: 07-28-2022 ambulatory Judith Pinzon Other [facility] Other Start: 07-28-2022 Patient encounter procedure Judith Pinzon [facility] Start: 06-27-2021 End: 06-28-2021 ambulatory RONALD NUCKLOS Facility:[facility] Start: 06-09-2021 End: 06-09-2021 Emergency department patient visit RONALD NUCLAURAOS Facility:[facility] Start: 12-02-2020 End: 12-03-2020 ambulatory RONALD NUCKLOS Facility:[facility] Start: 11-26-2020 End: 11-27-2020 ambulatory RONALD NUCKLOS Facility:[facility] Start: 08-05-2017 End: 08-06-2017 Ambulatory ELINA Weir [facility] Procedures Date Procedure Procedure Detail Performing Clinician [...] FLETCHER Payers Date Payer Category Payer Unknown [id number] [id number] 1960 Unknown [id number] [id number] [id number] 1960 Unknown [id number] 2.16.8 [id number] 1960 Unknown [id number] 2.16.8 [id number] 1960 Unknown [id number] 2.16.84 [id number] 1959 Medicaid [id number] 1959 Private Health Insurance [id number] Unknown [id number] Social History Date Type Detail Facility Sex Assigned At [facility] Other Progress note 04-28-2023 Note Date & Type Note Facility 04-28-2023 Note Patient pick-up medi cation and she is all good. Elva Cyr CPhT [facility] 05/02/23 11:59 AM [facility] Progress note 04-28-2023 Note Date & Type [...] for follow up. ? Jael Vasquez PharmD [facility] [phone] [facility] Progress note 04-28-2023 Note Date & Type Note Facility 04-28-2023 Note Patient called back and will pick-up medication on Monday. She requests help with first injection. Odessa Bond PharmD Outpatient Clinical Pharmacist [facility] [id number] 04/28/23 3:19 PM [facility] Progress note 04-28-2023 Note Date & Type [...] [facility] Yessenia Roque PharmD, BCACP [facility] 04/28/23 [facility] Progress note 04-28-2023 Note Date & Type [...] Scheduling Instructions: The phone number to contact [facility] Radiology is Once you have been placed [...] Scheduling Instructions: The phone number to contact [facility] Radiology is Once you have been placed into the phone tree, it will prompt with the following options. 1 - CT scheduling 2 - MRI schedul (more content not included)... [facility] Progress note 04-14-2023 Note Date & Type Note Facility 04-14-2023 Note Subjective Patient ID: Rhea Alaniz is a 62 y.o. female who presents for Follow-up (Patient here for mammogram review, lump in groin, kidney labs, Reviewed 04/14/2023 -EK ). HPI Patent here for follow up and for further evaluation of an abnormal mammogram done 03/21/2023 in [place].Patient also complains of a lump that she [...] other site 8 (more content not included)... [facility] Progress note 09-03-2022 Note Date & Type [...] be an additional personal documentation from me. [facility] Progress note 09-02-2022 Note Date & Type [...] be an additional personal documentation from me. [facility] Evaluation note Note Date & Type Note Facility Evaluation note No Information [facility] [employer] Other Summary Purpose Family History No [...] section and content) DATE CREATED AUTHOR 09/06/2017 [facility] DATE CREATED AUTHOR AUTHOR'S ORGANIZ ATION 09/23/2021 [facility] DATE CREATED AUTHOR AUTHOR'S ORGANIZ ATION 08/03/2022 [facility] DATE CREATED AUTHOR AUTHOR'S ORGANIZ ATION 02/08/2023 [facility] DATE CREATED AUTHOR AUTHOR'S ORGANIZ ATION 08/24/2023 [facility] REASON FOR VISIT (unrecogniz ed section and [...] BE BASED ON THE PRIMARY CLINICAL RECORDS. [employer] provides no warranty or guarantee of the accuracy or completeness of information in this document.
[2023-09-12 19:26] VITALS: BP 139/82; PULSE 75; TEMP 36.7; O2SAT 94; BMI 26.5
[2023-09-12] MEDS: ONDANSETRON PF 4 MG/2 ML VIAL IV (19:38)
[2023-09-12] MEDS: LACTATED RINGER'S SOLUTION 1,000 ML 100 ML IV (19:40)
[2023-09-12 20:29] VITALS: O2SAT 97
[2023-09-12 20:41] LABS: Bilirubin Urine NEGATIVE (NEGATIVE); Blood Urine NEGATIVE (NEGATIVE); Clarity Urine CLEAR (CLEAR); Color Urine YELLOW (YELLOW); Glucose Urine UA NEGATIVE (NEGATIVE); Ketones Urine NEGATIVE (NEGATIVE); Leukocyte Esterase Urine NEGATIVE (NEGATIVE); Nitrite Urine NEGATIVE (NEGATIVE); Protein Urine NEGATIVE (NEG/TRACE); Urobilinogen Urine 0.2 EU/dL (0.2-1.0); pH Urine 5.5 (5.0-9.0)
[2023-09-12 20:51] LABS: Amorphous Sediment Urine FEW; Bacteria Urine NONE SEEN #/HPF (NONE SEEN); Crystals Seen? Seen #/HPF (None Seen); Mucus Urine NONE SEEN (NONE SEEN); RBC Urine 0-2 #/HPF (0-2); Squamous Epithelial Cell Urine FEW #/LPF (NONE/RARE); WBC Urine 0-2 #/HPF (NONE SEEN)
[2023-09-12 20:52] LABS: Cast Seen? NONE SEEN #/LPF (NONE SEEN); Urine Culture Indicated ALREADY ORDERED
[2023-09-12] MEDS: PROMETHAZINE HCL 12.5 MG in 0.9 % SODIUM CHLORIDE 50 ML 202 MG IV (22:16)
[2023-09-12] MEDS: FENTANYL CITRATE/PF 100 MCG/2 ML VIAL 50 MCG IV (22:16)
[2023-09-12 23:14] VITALS: BP 126/81; PULSE 69; TEMP 36.4; O2SAT 96
[2023-09-12 23:15] VITALS: BP 142/79; PULSE 73; TEMP 36.3; O2SAT 91
[2023-09-13] VITALS (7 sets, daily range): BP systolic 113–145; BP diastolic 56–82; PULSE 55–86; TEMP 36.4–36.8; O2SAT 91–96
[2023-09-13] MEDS: PIPERACILLIN SODIUM/TAZOBACTAM 3.375 GM in 0.9 % SODIUM CHLORIDE 50 ML IV ×3 (03:23→20:10)
[2023-09-13] MEDS: FENTANYL CITRATE/PF 100 MCG/2 ML VIAL 50 MCG IV ×6 (03:23→22:46)
[2023-09-13] MEDS: ONDANSETRON PF 4 MG/2 ML VIAL IV ×3 (03:23→22:46)
[2023-09-13] MEDS: LACTATED RINGER'S SOLUTION 1,000 ML 100 ML IV ×2 (05:10→15:38)
[2023-09-13 05:14] LABS: Basophils Percent Auto 0.3 % (0.2-2.0); Eosinophils Absolute Auto 0.2 10^3/uL (0.0-0.7); Eosinophils Percent Auto 3.5 % (0.9-7.0); Hematocrit 36.1 % (36.0-48.0); Hemoglobin 11.4 g/dL (12.0-16.0); Immature Granulocytes Abs Auto 0.02 10^3/uL (0.00-0.03); Immature Granulocytes Pct Auto 0.3 % (0.0-0.5); Lymphocytes Absolute Auto 1.3 10^3/uL (1.2-3.8); Lymphocytes Percent Auto 19.5 % (20.5-60.0); Mean Corpuscular HGB Conc 31.6 g/dL (29.9-35.2); Mean Corpuscular Hemoglobin 31.1 pg (26.7-34.0); Mean Corpuscular Volume 98.6 fL (81.0-99.0); Mean Platelet Volume 9.2 fL (9.5-13.5); Monocytes Absolute Auto 0.7 10^3/uL (0.3-0.8); Neutrophils Absolute Auto 4.5 10^3/uL (1.4-6.5); Neutrophils Percent Auto 66.4 % (43.0-75.0); Platelet Count 275 10^3/uL (150-450); Red Blood Count 3.66 10^6/uL (4.20-5.40); Red Cell Distribution Width 12.2 % (11.0-15.0); White Blood Count 6.8 10^3/uL (4.0-11.0)
[2023-09-13 05:35] LABS: Alanine Aminotransferase 14 U/L (14-59); Albumin Globulin Ratio 0.9; Albumin Level 2.9 g/dL (3.4-5.0); Alkaline Phosphatase 48 U/L (46-116); Aspartate Amino Transferase 11 U/L (15-37); BUN Creatinine Ratio 20.9; Bilirubin Total 0.4 mg/dL (0.2-1.0); Calcium 8.7 mg/dL (8.5-10.1); Carbon Dioxide 28.6 mmol/L (21.0-32.0); Chloride 109 mmol/L (98-107); Estimated GFR (African America >60 (>=60); Estimated GFR (Non-African Ame >60 (>=60); Globulin 3.1 g/dL; Glucose 85 mg/dL (74-106); Potassium 3.6 mmol/L (3.5-5.1); Sodium 144 mmol/L (136-145)
--- NOTE | 2023-09-13 08:17 | CM.NOTE ---
Rounds made with Dr. Loaiza. Dr. Loaiza discusses plan of care-continue NPO status today, continue IV antibiotics and up moving in room. Ms. Byrd voices understanding.
--- NOTE | 2023-09-13 08:48 | P.HP_ITS ---
HPI H&P: HPI History of Present Illness Chief complaint: tracy diverticulitis failed outpatient treatmen Narrative: Patient resented to the emergency room with increasing abdominal pain. She was recently treated for diverticulitis as noted on previous CT scan about 2 weeks ago. Pain was better, pain now Mg presented, repeat CT scan shows 2 new areas of diverticulitis without perforation. When I saw the patient up on the medical surgical floor, she was resting fairly comfortably just significant abdominal pain. Denies chest pain or shortness of breath or any other physical findings Opioid HPI Opioid Management Most Recent Pain and Opioid Data: Last Pain Scale 7 09/13/23 12:13 Last Pain Assessment 09/13/23 12:00 Last MAR Pain Assessment 09/13/23 12:13 Last ORT Total Score 0 09/12/23 19:31 Last ORT Risk Category Low Risk 09/12/23 19:31 Review of Systems ROS Status of ROS 10 or more systems reviewed and unremark able except as noted in history and below Constitutional Denies: fever or chills PFSH PFSH Family History (Updated 09/12/23 @ 19:23 by Usha Joseph RN) Father Family history of cancer Mother Family history of diabetes mellitus Family history of stroke Social History (Updated 09/12/23 @ 19:24 by Usha Joseph RN) Within the past year, how often did you have a drink containing alcohol: monthly or less Within the past year, how many standard drinks containing alcohol did you have on a typical day: 1 or 2 Within the past year, how often did you have six or more drinks on one occasion: never Total score: 0 Score interpretation: A score less than 3 is consistent with normal alcohol consumption. Smoking status: Never smoker Non-prescribed substance use: denies use Highest level of school completed/degree received: high school graduate Are you now , , , , never or living with a partner: In a typical week, how many times do you talk on the telephone with family, friends, or neighbors: 3 or more times per week How often do you get together with friends or relatives: 3 or more times per week How often do you attend mu-ism or shinto services: never Do you think of yourself as: straight/heterosexual Gender Identity: female Meds Home Medications and Allergies Home Medications ?Medication ?Instructions ?Recorded ?Confirmed ?Type ondansetron 4 mg disintegrating 4 mg PO Q8H PRN nausea and 09/02/23 09/12/23 Rx tablet vomiting 4 days #16 tabs atorvastatin 40 mg tablet 40 mg PO DAILY 09/12/23 09/12/23 History Allergies Allergy/AdvReac Type Severity Reaction Status Date / Time morphine Allergy Severe rash Verified 09/02/23 15:30 Exam Constitutional Vital Signs, click to edit/add: Last Vital Signs Temp 97.8 F 09/13/23 03:30 Pulse 57 L 09/13/23 03:30 Resp 16 09/13/23 03:30 BP 124/79 09/13/23 03:30 Pulse Ox 91 L 09/13/23 03:30 O2 Del Method Room Air 09/13/23 03:30 Documenting provider has reviewed patient's vital signs: yes Common normals: apparent distress (Mild painful distress at rest, severe painful distress on exam) Respiratory Common normals: normal respiratory effort Cardio Common normals: regular rate, regular rhythm and no murmurs GI Common normals: Normal to inspection, nondistended, normoactive bowel sounds present and no masses; negative for soft to palpation and tender Palpation: tender (Worse in right lower quadrant with positive rebound tenderness), guarding and rebound tenderness present Results Labs Labs: Short CBC 09/12/23 09/13/23 Range/Units 15:12 04:17 WBC 9.2 6.8 (4.0-11.0) 10^3/uL Hgb 13.4 11.4 L (12.0-16.0) g/dL Hct 40.8 36.1 (36.0-48.0) % Plt Count 353 275 (150-450) 10^3/uL BMP 09/12/23 09/13/23 15:12 04:17 Sodium 136 144 Potassium 3.9 3.6 Chloride 100 109 H Carbon Dioxide 27.4 28.6 BUN 19.0 H 19.0 H Creatinine 0.93 0.91 Glucose 127 H 85 Calcium 9.1 8.7 Liver Function 09/12/23 09/13/23 Range/Units 15:12 04:17 Total Bilirubin 0.4 0.4 (0.2-1.0) mg/dL AST 18 11 L (15-37) U/L ALT 17 14 (14-59) U/L Alkaline Phosphatase 58 48 (46-116) U/L Albumin 3.5 2.9 L (3.4-5.0) g/dL Urine 09/12/23 09/12/23 Range/Units 16:10 20:28 Urine Color Yellow Yellow (YELLOW) Urine Clarity Clear Clear (CLEAR) Urine pH 6.0 5.5 (5.0-9.0) Ur Specific [place] 1.020 1.010 (1.005-1.025) Urine Protein Negative Negative (NEG/TRACE) mg/dL Urine Glucose (UA) Negative Negative (NEGATIVE) mg/dL Assessment and Plan Assessment and Plan (1) Diverticulitis: Plan Acute recurrent diverticulitis with failed outpatient treatment of previous diverticulitis. She has been off antibiotics for couple days, but pain is much worse since stopping. She was on Cipro and Flagyl. Placed patient on Zosyn. On exam she still has an acute abdomen, positive rebound tenderness, severe tenderness on palpation, although white blood cell count is normal significant findings on CT scan will warrant 2 to 3-day hospital admission for IV antibiotics that she has failed outpatient treatment - NPO status undil pain improves Iron Def anemia - follow daily Admission status - Failed out-pt treatment for diverticulitis - , requiring IV antibiotics ofre 2 - 3 day stay - Medically necessary treatment will span 2 midnights,.
[2023-09-13] MEDS: ACETAMINOPHEN 500 MG TABLET 1000 MG PO (11:13)
[2023-09-13] MEDS: KETOROLAC TROMETHAMINE 30 MG/ML VIAL IVP ×2 (11:13→17:50)
--- NOTE | 2023-09-13 13:14 | SWNOTE1 ---
Important Message from Medicare reviewed and discussed with patient. Pt. verbalized understanding and signed the form. Original given to patient and copy placed in patient?s chart.
[2023-09-14] VITALS (8 sets, daily range): BP systolic 132–168; BP diastolic 56–84; PULSE 49–68; TEMP 36.3–36.6; O2SAT 92–99
[2023-09-14] MEDS: LACTATED RINGER'S SOLUTION 1,000 ML 100 ML IV ×3 (02:12→21:55)
[2023-09-14] MEDS: KETOROLAC TROMETHAMINE 30 MG/ML VIAL IVP ×4 (02:12→21:55)
[2023-09-14] MEDS: PIPERACILLIN SODIUM/TAZOBACTAM 3.375 GM in 0.9 % SODIUM CHLORIDE 50 ML IV ×3 (03:59→21:55)
[2023-09-14] MEDS: FENTANYL CITRATE/PF 100 MCG/2 ML VIAL 50 MCG IV ×4 (04:02→21:56)
[2023-09-14] MEDS: HYOSCYAMINE SULFATE 0.125 MG TAB.SUBL SL ×4 (04:02→21:56)
[2023-09-14] MEDS: ONDANSETRON PF 4 MG/2 ML VIAL IV ×3 (04:03→21:56)
[2023-09-14 05:44] LABS: Basophils Percent Auto 0.7 % (0.2-2.0); Eosinophils Absolute Auto 0.2 10^3/uL (0.0-0.7); Eosinophils Percent Auto 5.1 % (0.9-7.0); Hematocrit 32.6 % (36.0-48.0); Hemoglobin 10.5 g/dL (12.0-16.0); Immature Granulocytes Abs Auto 0.02 10^3/uL (0.00-0.03); Immature Granulocytes Pct Auto 0.5 % (0.0-0.5); Lymphocytes Absolute Auto 1.2 10^3/uL (1.2-3.8); Lymphocytes Percent Auto 30.1 % (20.5-60.0); Mean Corpuscular HGB Conc 32.2 g/dL (29.9-35.2); Mean Corpuscular Hemoglobin 31.1 pg (26.7-34.0); Mean Corpuscular Volume 96.4 fL (81.0-99.0); Mean Platelet Volume 9.2 fL (9.5-13.5); Monocytes Absolute Auto 0.4 10^3/uL (0.3-0.8); Monocytes Percent Auto 10.5 % (1.7-12.0); Neutrophils Absolute Auto 2.2 10^3/uL (1.4-6.5); Neutrophils Percent Auto 53.1 % (43.0-75.0); Platelet Count 234 10^3/uL (150-450); Red Blood Count 3.38 10^6/uL (4.20-5.40); White Blood Count 4.1 10^3/uL (4.0-11.0)
[2023-09-14 06:06] LABS: Alanine Aminotransferase 13 U/L (14-59); Albumin Globulin Ratio 0.9; Albumin Level 2.6 g/dL (3.4-5.0); Alkaline Phosphatase 38 U/L (46-116); Anion Gap 10.2; Aspartate Amino Transferase 16 U/L (15-37); BUN Creatinine Ratio 15.2; Bilirubin Total 0.4 mg/dL (0.2-1.0); Calcium 8.2 mg/dL (8.5-10.1); Carbon Dioxide 28.5 mmol/L (21.0-32.0); Chloride 108 mmol/L (98-107); Estimated GFR (African America >60 (>=60); Estimated GFR (Non-African Ame >60 (>=60); Globulin 2.8 g/dL; Glucose 79 mg/dL (74-106); Potassium 3.7 mmol/L (3.5-5.1); Sodium 143 mmol/L (136-145); Total Protein 5.4 g/dL (6.4-8.2)
[2023-09-14] MEDS: ACETAMINOPHEN 500 MG TABLET 1000 MG PO ×2 (08:44→16:23)
--- NOTE | 2023-09-14 08:48 | P.PN_ITS ---
Progress Note: Subjective Subjective Interval history: Patient states her pain is overall improved. Does have some pain when she has been moving around though. Exam Constitutional Vital Signs, click to edit/add: Last Vital Signs Temp 97.5 F L 09/14/23 07:46 Pulse 49 L 09/14/23 07:46 Resp 18 09/14/23 07:46 BP 149/76 H 09/14/23 07:46 Pulse Ox 98 09/14/23 07:46 O2 Del Method Room Air 09/14/23 07:46 Documenting provider has reviewed patient's vital signs: yes Common normals: apparent distress (Mild painful distress at rest, severe painful distress on exam) Respiratory Common normals: normal respiratory effort Cardio Common normals: regular rate, regular rhythm and no murmurs GI Common normals: Normal to inspection, nondistended, normoactive bowel sounds p resent, soft to palpation and no masses; tender Palpation: tender (Worse in left lower quadrant, correction from yesterday), guarding and rebound tenderness present (Very minimal rebound tenderness today, improved) Progress Note: Objective Labs Labs: Short CBC 09/14/23 Range/Units 04:26 WBC 4.1 (4.0-11.0) 10^3/uL Hgb 10.5 L (12.0-16.0) g/dL Hct 32.6 L (36.0-48.0) % Plt Count 234 (150-450) 10^3/uL BMP 09/14/23 04:26 Sodium 143 Potassium 3.7 Chloride 108 H Carbon Dioxide 28.5 BUN 12.0 Creatinine 0.79 Glucose 79 Calcium 8.2 L Liver Function 09/14/23 Range/Units 04:26 Total Bilirubin 0.4 (0.2-1.0) mg/dL AST 16 (15-37) U/L ALT 13 L (14-59) U/L Alkaline Phosphatase 38 L (46-116) U/L Albumin 2.6 L (3.4-5.0) g/dL Progress Note: A&P Assessment and Plan (1) Diverticulitis: Plan Acute recurrent diverticulitis with failed outpatient treatment of previous diverticulitis. She has been off antibiotics for couple days, but pain is much worse since stopping. She was on Cipro and Flagyl. Placed patient on Zosyn. Patient is somewhat improved, but very slowly. White blood cell count still, left shift on admission is improving. She is still significantly tender in her abdomen however. Continue with antibiotics 1 additional day since she failed outpatient treatment. If not significantly improved tomorrow, will repeat CT scan. Iron Def anemia - follow daily Moderate protein calorie malnutrition-diet supplement Admission status - Failed out-pt treatment for diverticulitis - , requiring IV antibiotics ofre 2 - 3 day stay - Medically necessary treatment will span 2 midnights,. ?
[2023-09-14] MEDS: L. ACIDOPHILUS/L.BULGARICUS 1 PACKET GRAN.PACK PO ×2 (10:19→21:56)
[2023-09-14] MEDS: ENSURE CLEAR 237 ML LIQUID PO ×2 (10:19→21:55)
--- NOTE | 2023-09-14 10:53 | CM.NOTE ---
Rounds made with Dr. Loaiza. Dr. Loaiza reviewed labs with Rhea. Rhea verbalizes understanding. Rhea remains w abd tenderness. Plan is to advance diet and monitor another day with possible discharge tomorrow.
[2023-09-14] MEDS: ZINC OXIDE 30% CREAM 113.4 GM TUBE 1 APPLIC TOPICAL (16:28)
--- NOTE | 2023-09-14 19:33 | XR_ITS ---
The [address] [address] Patient Name: KILEY ALANIZ MRN: [id number] date: 1960 Sex: F Assigned Patient Location: [place] Current Patient Location: [place] Accession/Order Number: [id number] Exam Date: 09/14/2023 20:45 Report Date: 09/14/2023 21:42 At the request of: JOÃO CONTRERAS Procedure: XR acute abdomen series EXAM: XR acute abdomen series HISTORY: bloating COMPARISON: CT abdomen/pelvis dated 09/12/2023. TECHNIQUE: Frontal view of the chest as well as upright and supine views of the abdomen FINDINGS: The heart size is normal. No dense focal consolidation, pneumothorax or pleural effusion is seen. A few small air-fluid levels are seen within the small bowel, which may represent mild generalized ileus. However, early/partial low-grade small bowel obstruction cannot be entirely excluded. Please correlate clinically and obtain follow-up imaging as clinically indicated. Large volume of stool is seen in the colon. No gross pneumoperitoneum is seen. No obvious pathologic calcification is seen. The visualized osseous structures appear unremarkable. XR/XR acute abdomen series IMPRESSION: A few small air-fluid levels are seen within the small bowel, which may represent mild generalized ileus. However, early/partial low-grade small bowel obstruction cannot be entirely excluded. Please correlate clinically and obtain follow-up imaging as clinically indicated. Large volume of stool is seen in the colon. Electronically authenticated by: RYAN CAMPO Date: 09/14/2023 21:42
[2023-09-15] VITALS (9 sets, daily range): BP systolic 127–169; BP diastolic 73–90; PULSE 59–93; TEMP 36.4–36.8; O2SAT 85–97
--- NOTE | 2023-09-15 | CONS_ITS ---
CONSULTATION CONSULTATION DATE: ??09/15/2023 CHIEF COMPLAINT:? Abdominal pain, diverticulitis. HISTORY OF PRESENT ILLNESS:? Patient is a 63-year-old female with history of hypercholesterolemia as well as diverticular disease.? She reports that she has had intermittent flare ups for many years.? She is recently moving to the area from [place] during a divorce.? She did develop abdominal pain in mid August for several days, particularly in the left lower quadrant.? She was seen in the emergency room here on 09/01, where she had a normal white blood cell count, but CT scan was read as acute sigmoid diverticulitis.? There was noted to be diverticulosis as well as very mild inflammation of the lower sigmoid colon.? No phlegmon.? No free fluid or abscess.? Patient was treated with outpatient antibiotics, as well as pain medication.? She was unable to get the Percocet, was not taking ibuprofen.? Eventually got some tramadol, which she said was not effective.? She completed the course of antibiotics but had persistent pain, intermittent nausea, as well as some problems with constipation.? She represented here to the emergency room on 09/11, where she once again had normal white blood cell count, normal vital signs, but CT scan was read as mild diverticulitis of the lower portion of the rectosigmoid junction, as well as a small amount of fluid within the pelvis.? She was admitted primarily for pain control, has been afebrile since her admission, with a normal white blood cell count, normal vital signs.? Her main complaint has been pain.? She was having a lot of back pain as well as some hematuria when she originally represented on 09/11.? That has improved.? She denies any previous abdominal surgeries.? She does report that she had been treated in [place] intermittently for diverticulitis and has had colonoscopies in the past.? The last, she believes, was three or four years ago and just revealed the diverticular disease.? She denies any aspirin, nonsteroidal anti-inflammatory drug use.? She does not smoke or vape nicotine products.? Does not use marijuana.? There is no history of GI malignancy or inflammatory bowel disease.? ALLERGIES:? She has allergy to morphine which causes a rash. MEDICATION:? Her home medications include atorvastatin which had been recently given in the emergency room.? PAST SURGICAL HISTORY:? She denies any previous surgical operations. PAST MEDICAL HISTORY:? She denies any other medical problems.? SOCIAL HISTORY:? She is currently going through a divorce.? She is staying with her daughter in [place].? Denies tobacco use or illicit drug use.? Reports rare alcohol use. FAMILY HISTORY:? Noncontributory. REVIEW OF SYSTEMS:? Ten system review of systems is negative for recent weight loss or weight gain.? She denies increased fatigue or light-headedness.? Has had no earache or tinnitus.? No sinus congestion.? No sore throat or hoarseness.? No chest pain, palpitations or syncope.? No chronic cough, shortness of breath or hemoptysis.? She has had the abdominal pain, which she describes as an ache, crampy at times, bilateral lower abdomen, left greater than right.? No vomiting.? No blood in the stools.? She has had looser stools since this admission.? No dysuria, frequency, urgency.? She did have the hematuria prior to admission.? No headaches, seizures or tremors.? No easy bruising or bleeding.? No heat or cold intolerance.? No polydipsia, polyphagia or polyuria. PHYSICAL EXAM:? VITAL SIGNS:? Patient is afebrile.? Blood pressure is 150/70.? Heart rate is 60.? Respiratory rate is 18.? O2 saturation is 95% on room air.? GENERAL:? In general, she is a well developed, well nourished, soriano female, sitting up in bed, in no acute distress. HEENT:? Normocephalic, atraumatic.? Sclerae anicteric.? Conjunctiva are not injected.? Oral mucosa is moist, without lesions.? NECK:? Supple.? There is no adenopathy or thyromegaly or JVD. LUNGS:? Clear bilaterally. CARDIAC EXAM:? Regular rhythm and rate without appreciable murmurs, rubs or gallops. ABDOMEN:? Soft.? It is non-distended.? There are normal active bowel sounds.? There is mild lower abdominal tenderness to palpation, left greater than right, with no peritoneal signs.? No masses.? No hepatosplenomegaly.? No hernias.? No CVA tenderness.? SKIN:? Warm and dry without lesions, rashes or ulcers. NEURO EXAM:? Non-focal.? Non-lateralizing.? Patient is awake, alert, oriented with appropriate affect. IMAGING:? CT scans, three different ones that have been done since 09/01 were all reviewed.? Overall, patient has definite diverticular disease, very mild inflammation and fluid.? No evidence of phlegmon or abscess or contained perforation.? She does have evidence of constipation, which is likely contributing to her pain.? ASSESSMENT:? Overall, she has no evidence of significant infection with normal white blood cell count, being afebrile, with normal vital signs.? Likely has continued inflammation in the colon as well as some spasticity and other symptoms consistent with IBS certainly can go along with chronic diverticular disease.? PLAN:? Would recommend stool softener.? She may require MiraLax.? I would add a low dose Valium as an anti-spasmodic.? This may help with the colon pain as well as longer acting oral narcotic to control the pain.? She is currently on Toradol scheduled, which could be transitioned to ibuprofen or Aleve on discharge.? I would advance her to a low residue diet.? She has no evidence of ileus on any of her imaging studies.? If her pain is under better control and she is tolerating the low residue diet, she should be able to be discharged to home and can follow up with her board stacker as an outpatient.? RICARDO
[2023-09-15] MEDS: ONDANSETRON PF 4 MG/2 ML VIAL IV ×2 (02:29→08:20)
[2023-09-15] MEDS: FENTANYL CITRATE/PF 100 MCG/2 ML VIAL 50 MCG IV (02:29)
[2023-09-15] MEDS: PIPERACILLIN SODIUM/TAZOBACTAM 3.375 GM in 0.9 % SODIUM CHLORIDE 50 ML IV (03:52)
[2023-09-15] MEDS: HYOSCYAMINE SULFATE 0.125 MG TAB.SUBL SL (03:56)
[2023-09-15] MEDS: ACETAMINOPHEN 500 MG TABLET 1000 MG PO ×2 (03:56→09:58)
[2023-09-15] MEDS: KETOROLAC TROMETHAMINE 30 MG/ML VIAL IVP ×4 (03:56→22:07)
--- NOTE | 2023-09-15 04:17 | PC.NURSE ---
dusting and brushing machine operator called to inform Floor Rn that pt was 85% with good pleth on POX. Pt placed on 2L NC.
[2023-09-15 04:29] LABS: Basophils Percent Auto 0.3 % (0.2-2.0); Eosinophils Absolute Auto 0.2 10^3/uL (0.0-0.7); Hematocrit 32.9 % (36.0-48.0); Hemoglobin 10.5 g/dL (12.0-16.0); Immature Granulocytes Abs Auto 0.01 10^3/uL (0.00-0.03); Immature Granulocytes Pct Auto 0.3 % (0.0-0.5); Lymphocytes Absolute Auto 1.2 10^3/uL (1.2-3.8); Lymphocytes Percent Auto 31.3 % (20.5-60.0); Mean Corpuscular HGB Conc 31.9 g/dL (29.9-35.2); Mean Corpuscular Hemoglobin 31.3 pg (26.7-34.0); Mean Corpuscular Volume 97.9 fL (81.0-99.0); Mean Platelet Volume 9.2 fL (9.5-13.5); Monocytes Absolute Auto 0.4 10^3/uL (0.3-0.8); Monocytes Percent Auto 10.2 % (1.7-12.0); Neutrophils Percent Auto 52.9 % (43.0-75.0); Platelet Count 268 10^3/uL (150-450); Red Blood Count 3.36 10^6/uL (4.20-5.40); White Blood Count 3.8 10^3/uL (4.0-11.0)
[2023-09-15 04:57] LABS: Alanine Aminotransferase 15 U/L (14-59); Albumin Globulin Ratio 0.9; Albumin Level 2.8 g/dL (3.4-5.0); Alkaline Phosphatase 41 U/L (46-116); Anion Gap 9.5; Aspartate Amino Transferase 12 U/L (15-37); BUN Creatinine Ratio 12.6; Bilirubin Total 0.4 mg/dL (0.2-1.0); Calcium 8.6 mg/dL (8.5-10.1); Carbon Dioxide 29.9 mmol/L (21.0-32.0); Chloride 107 mmol/L (98-107); Estimated GFR (African America >60 (>=60); Estimated GFR (Non-African Ame >60 (>=60); Glucose 77 mg/dL (74-106); Potassium 3.4 mmol/L (3.5-5.1); Sodium 143 mmol/L (136-145); Total Protein 5.8 g/dL (6.4-8.2)
--- NOTE | 2023-09-15 06:56 | CT_ITS ---
The [address] [address] Patient Name: KILEY ALANIZ MRN: [id number] date: 1960 Sex: F Assigned Patient Location: [place] Current Patient Location: [place] Accession/Order Number: [id number] Exam Date: 09/15/2023 09:22 Report Date: 09/15/2023 10:06 At the request of: JOÃO CONTRERAS Procedure: CT abdomen pelvis w con EXAM: CT abdomen pelvis w con HISTORY: Follow up diverticulitis, ileus COMPARISON: CT abdomen/pelvis dated 09/12/2023. TECHNIQUE: Routine CT abdomen/pelvis with intravenous and oral contrast. FINDINGS: Lower chest: There are increased interstitial markings within both lung bases and new small bilateral pleural effusions. Correlate with clinical findings of congestive heart failure/fluid overload. A chest radiograph is recommended for additional evaluation. Solid organs: Stable 2 cm hypodense lesion within the right lobe of the liver measuring 12 Hounsfield units which most commonly is a cyst. There is new edema associated with the gallbladder which may either be within the wall or pericholecystic. There are no calcified gallstones. The biliary tree is not significantly dilated. The pancreas is unremarkable. There is a calcified granuloma within the spleen. The bilateral adrenal glands are unremarkable. There is a 0.2 cm nonobstructive left renal calculus. Bowel: There are diffuse colonic diverticula, most numerous along the descending and sigmoid colon. Stable bowel wall thickening at the junction of the descending and sigmoid colon with associated pericolonic inflammatory reaction consistent with acute diverticulitis. New small amount of free fluid within the pericolonic region and within the pelvis. There is no free air or abscess. The bowel gas pattern is nonobstructive with a moderately large amount of formed and liquid stool within the colon. Stable mild prominence of the appendix measuring 0.8 cm in transverse dimension. No significant inflammatory reaction is seen within the periappendiceal region and there is a small amount of oral contrast extending into the appendix. There is a small hiatal hernia. The small bowel is normal caliber. Inflammation: As previously described. Vasculature: The abdominal aorta and the IVC are unremarkable. Lymphadenopathy: There are no pathologically enlarged lymph nodes. Pelvis: The unopacified urinary bladder is unremarkable. The uterus and adnexal regions are unremarkable. Musculoskeletal: The bony structures appear osteopenic. There is slight dextroscoliosis of the lumbar spine. CT/CT abdomen pelvis w con IMPRESSION: There are diffuse colonic diverticula, most numerous along the descending and sigmoid colon. Stable bowel wall thickening at the junction of the descending and sigmoid colon with associated pericolonic inflammatory reaction consistent with acute diverticulitis. New small amount of free fluid within the pericolonic region and within the pelvis. There is no free air or abscess. The bowel gas pattern is nonobstructive with a moderately large amount of formed and liquid stool within the colon. Stable mild prominence of the appendix measuring 0.8 cm in transverse dimension. No significant inflammatory reaction is seen within the periappendiceal region and there is a small amount of oral contrast extending into the appendix. There are increased interstitial markings within both lung bases and new small bilateral pleural effusions. Correlate with clinical findings of congestive heart failure/fluid overload. A chest radiograph is recommended for additional evaluation. Stable 2 cm hypodense lesion within the right lobe of the liver which most commonly is a cyst. There is new edema associated with the gallbladder which may either be within the wall or pericholecystic. There are no calcified gallstones. There is no significant biliary dilatation. Stable 0.2 cm nonobstructive left renal calculus. Electronically authenticated by: KAMERON ENRIQUEZ Date: 09/15/2023 10:06
[2023-09-15] MEDS: IMIPENEM/CILASTATIN SODIUM 1,000 MG in 0.9 % SODIUM CHLORIDE 100 ML 100 MG IV ×3 (08:20→20:15)
[2023-09-15] MEDS: POTASSIUM CHLORIDE 10 MEQ ER TABLET 20 MEQ PO ×2 (08:20→20:15)
[2023-09-15] MEDS: ENSURE CLEAR 237 ML LIQUID PO ×2 (08:20→20:17)
[2023-09-15] MEDS: L. ACIDOPHILUS/L.BULGARICUS 1 PACKET GRAN.PACK PO ×2 (08:20→20:17)
--- NOTE | 2023-09-15 09:46 | P.PN_ITS ---
Progress Note: Subjective Subjective Interval history: Pain persisting this morning. Exam Constitutional Vital Signs, click to edit/add: Last Vital Signs Temp 97.6 F 09/15/23 08:16 Pulse 65 09/15/23 08:16 Resp 18 09/15/23 08:16 BP 154/82 H 09/15/23 08:16 Pulse Ox 92 L 09/15/23 08:17 O2 Del Method Room Air 09/15/23 08:17 Documenting provider has reviewed patient's vital signs: yes Common normals: apparent distress (Mild painful distress at rest, severe painful distress on exam) Respiratory Common normals: normal respiratory effort Cardio Common normals: regular rate, regular rhythm and no murmurs GI Common normals: Normal to inspection, nondistended, normoactive bowel sounds present, soft to palpation and no masses; tender Palpation: tender (Still with left lower quadrant tenderness, mild rebound tenderness), guarding and rebound tenderness present (Very minimal rebound tenderness today, improved) Progress Note: Objective Labs Labs: Short CBC 09/15/23 Range/Units 03:55 WBC 3.8 L (4.0-11.0) 10^3/uL Hgb 10.5 L (12.0-16.0) g/dL Hct 32.9 L (36.0-48.0) % Plt Count 268 (150-450) 10^3/uL BMP 09/15/23 03:55 Sodium 143 Potassium 3.4 L Chloride 107 Carbon Dioxide 29.9 BUN 11.0 Creatinine 0.87 Glucose 77 Calcium 8.6 Liver Function 09/15/23 Range/Units 03:55 Total Bilirubin 0.4 (0.2-1.0) mg/dL AST 12 L (15-37) U/L ALT 15 (14-59) U/L Alkaline Phosphatase 41 L (46-116) U/L Albumin 2.8 L (3.4-5.0) g/dL Progress Note: A&P Assessment and Plan (1) Diverticulitis: Plan Acute recurrent diverticulitis with failed outpatient treatment of previous diverticulitis. She has been off antibiotics for couple days, but pain is much worse since stopping. She was on Cipro and Flagyl. Placed patient on Zosyn. Patient is somewhat improved, but very slowly. White blood cell count still, left shift on admission is improving. Tenderness persisting. Will change antibiotics today. Repeat CT scan shows no significant abscess formation and some evidence of fluid overload. Saline lock. Iron Def anemia - follow daily Moderate protein calorie malnutrition-diet supplement Admission status - Failed out-pt treatment for diverticulitis - , requiring IV antibiotics ofre 2 - 3 day stay - Medically necessary treatment will span 2 midnights,. ?
[2023-09-15] MEDS: PROMETHAZINE HCL 25 MG in 0.9 % SODIUM CHLORIDE 50 ML 204 MG IV (10:38)
[2023-09-15] MEDS: LEVOFLOXACIN IN DEXTROSE 5 % 750 MG/150 ML IV.SOLN 100 MG IV (11:00)
[2023-09-15] MEDS: HYOSCYAMINE SULFATE 0.125 MG TAB.SUBL 0.25 MG SL ×2 (11:05→16:35)
--- NOTE | 2023-09-15 11:44 | CM.NOTE ---
Rounds made with Dr. Loaiza. Dr. Loaiza reviewed labs with Rhea. Rhea complained of increased pain after advancing diet yesterday.. Plan is to get a CT of ABD today and adjust pain meds. Rhea verbalized understanding. No anticipated discharge for today.
[2023-09-15] MEDS: HYDROMORPHONE HCL 0.5 MG/0.5 ML SYRINGE IV ×2 (12:35→22:07)
[2023-09-15] MEDS: 0.9 % SODIUM CHLORIDE 250 ML 10 ML IV (13:52)
--- NOTE | 2023-09-15 17:43 | PM.GSCN ---
History of Present Illness Consult details Consult date: 09/15/23 Reason for consult: abdominal pain Requesting physician: Dustin Loaiza Narrative: patient seen/examined/chart and multiple abd/pelvic ct scan images reviewed/consult dictated; 63 yo female with long h/o diverticular disease, with mild flare up in mid August, treated with antibiotics; represented for persistent pain 09/12/23 with normal wbc, mild fluid around lower rectosigmoid, no abscess or phlegmon, no significant inflammation; increased constipation; pain gradually improving; no evidence of ongoing infection, resolving inflammation/spasm, likely component of IBS and constipation; add stool softener, low dose Valium as anti-spasmotic; oral pain medication; low residue diet; can likely be discharged tomorrow if tolerates diet; 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 [facility] Family History (Updated 09/12/23 @ 19:23 by Usha Joseph, RN) Father Family history of cancer Mother Family history of diabetes mellitus Family history of stroke Social History (Updated 09/12/23 @ 19:24 by Usha Joseph, RN) Within the past year, how often did you have a drink containing alcohol: monthly or less Within the past year, how many standard drinks containing alcohol did you have on a typical day: 1 or 2 Within the past year, how often did you have six or more drinks on one occasion: never Total score: 0 Score interpretation: A score less than 3 is consistent with normal alcohol consumption. Smoking status: Never smoker Non-prescribed substance use: denies use Highest level of school completed/degree received: high school graduate Are you now , , , , never or living with a partner: In a typical week, how many times do you talk on the telephone with family, friends, or neighbors: 3 or more times per week How often do you get together with friends or relatives: 3 or more times per week How often do you attend quaker or presybeterian services: never Do you think of yourself as: straight/heterosexual Gender Identity: female Meds Home Medications and Allergies Home Medications ?Medication ?Instructions ?Recorded ?Confirmed ?Type ondansetron 4 mg disintegrating 4 mg PO Q8H PRN nausea and 09/02/23 09/12/23 Rx tablet vomiting 4 days #16 tabs atorvastatin 40 mg tablet 40 mg PO DAILY 09/12/23 09/12/23 History Allergies Allergy/AdvReac Type Severity Reaction Status Date / Time morphine Allergy Severe rash Verified 09/02/23 15:30 Exam Constitutional Vital Signs, click to edit/add: Last Vital Signs Temp 98.3 F 09/15/23 14:00 Pulse 59 L 09/15/23 14:00 Resp 18 09/15/23 14:00 BP 161/90 H 09/15/23 14:00 Pulse Ox 95 09/15/23 14:00 O2 Del Method Nasal Cannula 09/15/23 14:00 O2 Flow Rate 2 09/15/23 14:00 Results Labs Labs: Abnormal lab results 09/15/23 Range/Units 03:55 WBC 3.8 L (4.0-11.0) 10^3/uL RBC 3.36 L (4.20-5.40) 10^6/uL Hgb 10.5 L (12.0-16.0) g/dL Hct 32.9 L (36.0-48.0) % MPV 9.2 L (9.5-13.5) fL Potassium 3.4 L (3.5-5.1) mmol/L AST 12 L (15-37) U/L Alkaline Phosphatase 41 L (46-116) U/L Total Protein 5.8 L (6.4-8.2) g/dL Albumin 2.8 L (3.4-5.0) g/dL Diabetes panel 09/15/23 Range/Units 03:55 Sodium 143 (136-145) mmol/L Potassium 3.4 L (3.5-5.1) mmol/L Chloride 107 (98-107) mmol/L Carbon Dioxide 29.9 (21.0-32.0) mmol/L BUN 11.0 (7.0-18.0) mg/dL Creatinine 0.87 (0.55-1.02) mg/dL Glucose 77 (74-106) mg/dL Calcium 8.6 (8.5-10.1) mg/dL AST 12 L (15-37) U/L ALT 15 (14-59) U/L Alkaline Phosphatase 41 L (46-116) U/L Total Protein 5.8 L (6.4-8.2) g/dL Albumin 2.8 L (3.4-5.0) g/dL Calcium panel 09/15/23 Range/Units 03:55 Calcium 8.6 (8.5-10.1) mg/dL Albumin 2.8 L (3.4-5.0) g/dL Pituitary panel 09/15/23 Range/Units 03:55 Sodium 143 (136-145) mmol/L Potassium 3.4 L (3.5-5.1) mmol/L Chloride 107 (98-107) mmol/L Carbon Dioxide 29.9 (21.0-32.0) mmol/L BUN 11.0 (7.0-18.0) mg/dL Creatinine 0.87 (0.55-1.02) mg/dL Glucose 77 (74-106) mg/dL Calcium 8.6 (8.5-10.1) mg/dL Adrenal panel 09/15/23 Range/Units 03:55 Sodium 143 (136-145) mmol/L Potassium 3.4 L (3.5-5.1) mmol/L Chloride 107 (98-107) mmol/L Carbon Dioxide 29.9 (21.0-32.0) mmol/L BUN 11.0 (7.0-18.0) mg/dL Creatinine 0.87 (0.55-1.02) mg/dL Glucose 77 (74-106) mg/dL Calcium 8.6 (8.5-10.1) mg/dL Total Bilirubin 0.4 (0.2-1.0) mg/dL AST 12 L (15-37) U/L ALT 15 (14-59) U/L Alkaline Phosphatase 41 L (46-116) U/L Total Protein 5.8 L (6.4-8.2) g/dL Albumin 2.8 L (3.4-5.0) g/dL All other labs normal. Assessment and Plan Assessment and Plan (1) Diverticulitis:
[2023-09-15] MEDS: DIAZEPAM 2 MG TABLET PO (18:08)
[2023-09-15] MEDS: OXYCODONE HCL/ACETAMINOPHEN 5MG/325MG 1 TAB PO (18:08)
[2023-09-15] MEDS: DOCUSATE SODIUM 100 MG CAPSULE PO (20:15)
[2023-09-16] VITALS (7 sets, daily range): BP systolic 117–152; BP diastolic 60–90; PULSE 66–80; TEMP 36.4–36.6; O2SAT 84–97
[2023-09-16] MEDS: HYDROMORPHONE HCL 0.5 MG/0.5 ML SYRINGE IV ×2 (02:07→07:49)
[2023-09-16] MEDS: IMIPENEM/CILASTATIN SODIUM 1,000 MG in 0.9 % SODIUM CHLORIDE 100 ML 100 MG IV ×2 (02:08→07:48)
[2023-09-16] MEDS: KETOROLAC TROMETHAMINE 30 MG/ML VIAL IVP ×2 (04:04→09:41)
[2023-09-16 05:15] LABS: Basophils Percent Auto 0.5 % (0.2-2.0); Eosinophils Absolute Auto 0.2 10^3/uL (0.0-0.7); Eosinophils Percent Auto 3.4 % (0.9-7.0); Hematocrit 34.2 % (36.0-48.0); Hemoglobin 10.8 g/dL (12.0-16.0); Immature Granulocytes Abs Auto 0.02 10^3/uL (0.00-0.03); Immature Granulocytes Pct Auto 0.4 % (0.0-0.5); Lymphocytes Absolute Auto 1.2 10^3/uL (1.2-3.8); Lymphocytes Percent Auto 22.1 % (20.5-60.0); Mean Corpuscular HGB Conc 31.6 g/dL (29.9-35.2); Mean Corpuscular Hemoglobin 31.1 pg (26.7-34.0); Mean Corpuscular Volume 98.6 fL (81.0-99.0); Mean Platelet Volume 9.1 fL (9.5-13.5); Monocytes Absolute Auto 0.5 10^3/uL (0.3-0.8); Monocytes Percent Auto 8.6 % (1.7-12.0); Neutrophils Absolute Auto 3.6 10^3/uL (1.4-6.5); Platelet Count 256 10^3/uL (150-450); Red Blood Count 3.47 10^6/uL (4.20-5.40); White Blood Count 5.6 10^3/uL (4.0-11.0)
[2023-09-16 05:39] LABS: Alanine Aminotransferase 17 U/L (14-59); Albumin Globulin Ratio 0.8; Albumin Level 2.7 g/dL (3.4-5.0); Alkaline Phosphatase 39 U/L (46-116); Aspartate Amino Transferase 10 U/L (15-37); BUN Creatinine Ratio 7.5; Bilirubin Total 0.3 mg/dL (0.2-1.0); Calcium 8.7 mg/dL (8.5-10.1); Carbon Dioxide 30.1 mmol/L (21.0-32.0); Chloride 107 mmol/L (98-107); Estimated GFR (African America >60 (>=60); Estimated GFR (Non-African Ame >60 (>=60); Globulin 3.2 g/dL; Glucose 79 mg/dL (74-106); Potassium 4.1 mmol/L (3.5-5.1); Sodium 143 mmol/L (136-145); Total Protein 5.9 g/dL (6.4-8.2)
[2023-09-16] MEDS: HYOSCYAMINE SULFATE 0.125 MG TAB.SUBL 0.25 MG SL (06:34)
[2023-09-16] MEDS: ONDANSETRON PF 4 MG/2 ML VIAL IV (07:49)
[2023-09-16] MEDS: ENSURE CLEAR 237 ML LIQUID PO (09:40)
[2023-09-16] MEDS: POTASSIUM CHLORIDE 10 MEQ ER TABLET 20 MEQ PO (09:40)
[2023-09-16] MEDS: L. ACIDOPHILUS/L.BULGARICUS 1 PACKET GRAN.PACK PO (09:40)
[2023-09-16] MEDS: LEVOFLOXACIN IN DEXTROSE 5 % 750 MG/150 ML IV.SOLN 150 MG IV (11:34)
[2023-09-16 11:56] LABS: C. Difficile PCR NEGATIVE (NEGATIVE)
[2023-09-16] MEDS: ACETAMINOPHEN 500 MG TABLET 1000 MG PO (12:07)
--- NOTE | 2023-09-16 12:22 | P.DS_ITS ---
DS: Providers Provider Date of admission: 09/12/23 18:50 Primary care physician: Non-Staff PhysicianMD Admitting clinician: Dustin Loaiza Attending physician on admission: Dustin Loaiza Consults: 09/12/23 17:58 Consult to Pharmacy Routine Consulting Provider: Reason for consultation: Please Trevorton me when Med Rec is Updated Has provider been notified: No 09/15/23 11:15 Consult to General Surgeon Routine Consulting Provider: Ant Pires Reason for consultation: persistent pain Has provider been notified: Yes Attending physician on discharge: Shaikh Conor Discharging clinician: Shaikh Conor Anticipated date of discharge: 09/16/23 DS: Diagnosis Discharge Diagnosis (1) Diverticulitis: (2) HLD (hyperlipidemia): Qualifiers: Hyperlipidemia type: other hyperlipidemia Qualified Code(s): E78.49 - Other hyperlipidemia DS: Summary Hospital Course Hospital Course: 63-year-old female presented to the hospital with increasing left lower quadrant pain, nausea, vomiting and poor oral intake after she had just finished an oral antibiotic therapy for diverticulitis. Given her symptoms, recurrence of diverticulitis and the fact that she failed outpatient therapy, she was admitted for inpatient management of acute diverticulitis and started on IV Zosyn. She continued to experience anorexia, nausea and abdominal pain for which a repeat CT abdomen pelvis was ordered that did not show any significant abdominal pathology including diverticular perforation/abscess. Possible mildly dilated gallbladder but no right upper quadrant pain. Her antibiotic regimen was broadened to IV imipenem she continued to have pain and GI symptoms. General surgery was consulted also for the recommendation. Patient was seen earlier today she reports still feeling nauseous but able to keep her food down. Her abdominal pain is is better. She is a still a bit tender on left lower quadrant. She has no systemic signs of infection and tolerating oral diet. She is medically stable for discharge on oral antibiotic, antiemetics. She would benefit from outpatient follow-up by gastroenterology. General surgery was of the opinion that there may be a component of IBS with constipation that is contributing to her GI symptoms. Patient educated on worrisome signs and symptoms that should prompt her to seek urgent care. She was also recommended to follow-up with PCP in 1 to 2 weeks. Status at Discharge Functional status at discharge: independent ambulation Overall status at discharge: patient is progressing back to baseline Time Spent with Patient Time attestation: Total time spent providing and/or coordinating discharge services: Time spent: greater than 30 minutes Exam Constitutional Vital Signs, click to edit/add: Last Vital Signs Temp 97.6 F 09/16/23 08:00 Pulse 80 09/16/23 12:04 Resp 18 09/16/23 08:00 BP 152/90 H 09/16/23 08:00 Pulse Ox 97 09/16/23 12:04 O2 Del Method Room Air 09/16/23 12:04 O2 Flow Rate 1 09/16/23 05:40 FiO2 97 09/15/23 23:10 Documenting provider has reviewed patient's vital signs: yes Common normals: no apparent distress and oriented x3 General appearance: cooperative Respiratory Common normals: normal respiratory effort and clear to auscultation bilaterally Effort & inspection: able to speak in complete sentences Auscultation: clear to auscultation bilaterally Cardio Common normals: regular rate, S1 normal heart sound and S2 normal heart sound Rate: regular rate Heart sounds: S1 normal and S2 normal GI Common normals: Normal to inspection, nondistended, normoactive bowel sounds present, soft to palpation and no hepatosplenomegaly Palpation: tender Details: LLQ Neuro Common normals: oriented x3, moves all extremities and no focal motor deficits Psych Common normals: mental status grossly normal, denies hallucinations, denies homicidal ideation and denies suicidal ideation DS: Data Data Completed and Pending Labs on day of discharge: Labs from last 24 hours 09/16/23 09/15/23 04:29 20:53 WBC 5.6 RBC 3.47 L Hgb 10.8 L Hct 34.2 L MCV 98.6 MCH 31.1 MCHC 31.6 RDW 12.0 Plt Count 256 MPV 9.1 L Neut % (Auto) 65.0 Lymph % (Auto) 22.1 [place] % (Auto) 8.6 Eos % (Auto) 3.4 Baso % (Auto) 0.5 Neut # (Auto) 3.6 Lymph # (Auto) 1.2 [place] # (Auto) 0.5 Eos # (Auto) 0.2 Baso # (Auto) 0.0 Abs Immat Gran (auto) 0.02 Imm/Tot Granulo (auto) 0.4 Sodium 143 Potassium 4.1 Chloride 107 Carbon Dioxide 30.1 Anion Gap 10.0 BUN 7.0 Creatinine 0.93 Est GFR ( Amer) >60 Est GFR (Non-Af Amer) >60 BUN/Creatinine Ratio 7.5 Glucose 79 Calcium 8.7 Total Bilirubin 0.3 AST 10 L ALT 17 Alkaline Phosphatase 39 L Total Protein 5.9 L Albumin 2.7 L Globulin 3.2 Albumin/Globulin Ratio 0.8 C. difficile Toxin PCR Negative Preliminary micro results at discharge 09/12/23 18:22 - Preliminary Blood NO GROWTH AT 36-48 HOURS. FINAL TO FOLLOW. 09/12/23 18:15 Blood Culture Result 1 - Preliminary Blood NO GROWTH AT 36-48 HOURS. FINAL TO FOLLOW. Discharge Plan Discharge Disposition: Home, Self-Care Condition: Good Discharge Medications: New docusate sodium [Colace] 100 mg capsule 100 mg PO BID Qty: 30 0RF ondansetron HCl 4 mg tablet 4 mg PO Q8H PRN (Reason: nausea and vomiting) 3 Days Qty: 14 0RF amoxicillin-pot clavulanate 875-125 mg tablet 1 tab PO Q8H 7 Days Qty: 21 0RF hyoscyamine sulfate [Levsin] 0.125 mg tablet 0.125 mg PO Q8H PRN (Reason: abdominal discomfort) Qty: 20 0RF Continued ondansetron 4 mg tablet,disintegrating 4 mg PO Q8H PRN (Reason: nausea and vomiting) 4 Days Qty: 16 0RF atorvastatin 40 mg tablet 40 mg PO DAILY Patient Comments: pt states she takes 20 mg in the morning and 20 mg at night Activity: increase activity as tolerated Diet: advance to your usual diet Print Language: Bulgarian Forms: Portal Instructions Follow Up Appointments: Please call and schedule a follow up appointment to be seen by your PCP within 5-7 days
--- NOTE | 2023-09-18 11:42 | CM.DCFOLLOWU ---
1st attempt 09/18/23
--- NOTE | 2023-09-19 15:47 | CM.DCFOLLOWU ---
2nd attempt 09/19/23
--- NOTE | 2023-09-20 15:12 | CM.DCFOLLOWU ---
3rd attempt 09/20/23
== END 2023-09-16 13:15 | disposition home or self-care (01) | DRG 392 ==
LOC: ER 18:01 → MS 19:01
PROVIDERS: Personal Emergency Response Attendant; Admitting Provider Family Medicine; Emergency Provider Emergency Medicine; Visit Provider Internal Medicine
DX: K57.32 Diverticulitis of large intestine without perforation or abscess without bleeding (principal); E44.0 Moderate protein-calorie malnutrition; D50.9 Iron deficiency anemia, unspecified; Z68.26 Body mass index [BMI] 26.0-26.9, adult; E78.00 Pure hypercholesterolemia, unspecified
CPT/HCPCS: 36415; 74022; 74177; 80053; 81001; 83605; 83690; 84484; 85025; 87040; 87045; 87046; 87086; 87427; 87493; 93005; 94667; 94668; 94761; 96361; 96365; 96366; 96367; 96375; 96376; 99285; J0743; J1170; J1885; J2250; J2405; J2543; J3010; Q9966; Q9967